=== PATIENT | female | born 1950 | race Caucasian/White ===

== ENCOUNTER 2020-08-20 08:07 | Outpatient (CLI) | payer MEDICARE, BC, SELFPAY ==
--- NOTE | ~2020-08-20 | MM_ITS ---
EXAMINATION: MM screening [facility] BI w zack HISTORY: Screening mammogram, history of left breast cancer TECHNIQUE: Craniocaudal and mediolateral oblique 3-D tomosynthesis images were obtained and synthetic 2-D images were generated. CAD analysis was submitted and interpreted. COMPARISON: 07/30/2019, 07/10/2018, 05/31/2017, 05/30/2016 BREAST PARENCHYMAL COMPOSITION: There are scattered areas of fibroglandular density. FINDINGS: Stable lumpectomy changes are present in the left breast. There is no evidence of suspiciou s mass, calcification, or architectural distortion to suggest malignancy in either breast. There has been no suspicious interval change. IMPRESSION: 1. No mammographic evidence of malignancy. 2. Recommend routine screening mammography in one year. BI-RADS Category 2: Benign finding(s). Reviewed, dictated and finalized at location A. GER BUILDING
== END 2020-08-20 08:08 | disposition home or self-care (01) ==
LOC: ANHIMG 08:11
PROVIDERS: PCP Family Medicine; Visit Provider Family Medicine
DX: Z12.31 Encounter for screening mammogram for malignant neoplasm of breast (principal)
CPT/HCPCS: 77063; 77067

== ENCOUNTER 2021-02-18 13:19 | Outpatient (CLI) | payer MEDICARE, BC, SELFPAY ==
--- NOTE | ~2021-02-18 | US_ITS ---
US venous doppler [facility] DATE: 02/18/2021 14:20 INDICATION: Left leg pain TECHNIQUE: Real-time and color flow imaging and Doppler analysis of bilateral leg veins COMPARISON: 09/19/2017 venous duplex examination of left leg FINDINGS: There is evidence veins are patent. There is spontaneous and phasic flow and normal augment ation and color flow signal and normal compression of the deep veins of both lower extremities. IMPRESSION: Negative examination Reviewed, dictated and finalized at Location A. Reviewed, dictated and finalized at location A. IMPRESSION: Negative examination
== END 2021-02-18 13:20 | disposition home or self-care (01) ==
LOC: ANHIMG 13:23
PROVIDERS: PCP Family Medicine; Visit Provider Physician Assistant Medical
DX: M79.605 Pain in left leg (principal); Z86.718 Personal history of other venous thrombosis and embolism
CPT/HCPCS: 93970

== ENCOUNTER 2021-09-07 07:59 | Outpatient (CLI) | payer MEDICARE, BC, SELFPAY ==
--- NOTE | ~2021-09-07 | MM_ITS ---
EXAMINATION: MM screening [facility] BI w zack HISTORY: Screening mammogram TECHNIQUE: Craniocaudal and mediolateral oblique 3-D tomosynthesis images were obtained and synthetic 2-D images were generated. CAD analysis was submitted and interpreted. COMPARISON: No prior mammogram is available for comparison at this institution. BREAST PARENCHYMAL COMPOSITION: There are scattered areas of fibroglandular density. FINDINGS: Stable postoperative scarring is again noted on the left; history of left partial mastectom y in 2007 for breast cancer There is no evidence of suspicious mass, calcification, or new architectu ral distortion to suggest malignancy in either breast. There has been no suspicious interval change. IMPRESSION: 1. No mammographic evidence of malignancy. 2. Recommend routine screening mammography in one year. BI-RADS Category 2: Benign finding(s). Reviewed, dictated and finalized at location A. L CONSTRUCTION WORKER
== END 2021-09-07 08:00 | disposition home or self-care (01) ==
LOC: ANHIMG 08:04
PROVIDERS: PCP Family Medicine; Visit Provider Family Medicine
DX: Z12.31 Encounter for screening mammogram for malignant neoplasm of breast (principal)
CPT/HCPCS: 77063; 77067

== ENCOUNTER 2021-11-16 11:35 | Outpatient (CLI) | payer MEDICARE, BC, SELFPAY ==
--- NOTE | ~2021-11-16 | XR_ITS ---
EXAMINATION: XR abdomen/kub 1V DATE: 11/16/2021 11:51 INDICATION: Hematuria. Right lower quadrant abdominal pain. TECHNIQUE: A supine view of the abdomen on 2 radiographs was obtained. COMPARISON: CT abdomen and pelvis 11/06/2014, lumbar spine radiographs 06/04/16 FINDINGS: There are no dilated loops of bowel. The kidneys are obscured by bowel. There are phlebolit hs in the pelvis and ovarian veins. IMPRESSION: 1. No visible urolithiasis. Reviewed, dictated and finalized at location A. OLEUM SUPPLY SPECIALIST IMPRESSION: 1. No visible urolithiasis.
[2021-11-16 12:32] LABS: Basophils Percent Auto 0.3 % (0.2-1.2); Eosinophils Absolute Auto 0.1 K/mm3 (0-0.3); Eosinophils Percent Auto 0.4 % (0-4.4); Hemoglobin 14.3 g/dL (12.0-15.0); Immature Granulocyte Absolute 0.04 K/mm3 (0.00-0.031); Immature Granulocyte Percent A 0.3 % (0-0.5); Lymphocytes Absolute Auto 0.94 K/mm3 (0.9-3.2); Lymphocytes Percent Auto 7.2 % (18.3-44.2); Mean Corpuscular HGB Conc 33.3 g/dl (32-36); Mean Corpuscular Hemoglobin 33.3 pg (26-34); Mean Corpuscular Volume 100.2 fl (80-100); Mean Platelet Volume 9.6 fl (7.4-10.4); Monocytes Absolute Auto 1.1 K/mm3 (0.1-0.6); Monocytes Percent Auto 8.8 % (2.6-8.5); Neutrophils Absolute Auto 10.8 K/mm3 (1.3-6.7); Platelet Count Result 240 k/mm3 (150-375); Red Blood Count 4.29 M/mm3 (4.2-5.4); Red Cell Distribution Width 12.5 % (11.5-14.5)
[2021-11-16 12:48] LABS: Alanine Aminotransferase 14 U/L (4-35); Albumin Level 4.4 g/dL (3.5-5.1); Alkaline Phosphatase 70 U/L (38-126); Anion Gap 5 mmol/L (8-16); Aspartate Amino Transferase 25 U/L (14-36); Bilirubin,Total 0.7 mg/dL (0.2-1.3); Blood Urea Nitrogen 17 mg/dL (7-17); Calcium 9.6 mg/dL (8.4-10.2); Carbon Dioxide 25 mmol/L (22-30); Chloride 105 mmol/L (98-107); Estimated Glomerular Filt Rate > 60; Glucose 108 mg/dL (65-110); Potassium 4.2 mmol/L (3.4-5.0); Sodium 135 mmol/L (137-145)
== END 2021-11-16 11:36 | disposition home or self-care (01) ==
LOC: ANHIMG 11:38
PROVIDERS: PCP Family Medicine; Visit Provider Nurse Practitioner Family
DX: R31.9 Hematuria, unspecified (principal); R39.9 Unspecified symptoms and signs involving the genitourinary system
CPT/HCPCS: 36415; 74018; 80053; 85025

== ENCOUNTER 2022-08-30 14:18 | Emergency (ER) | payer MEDICARE, BC, SELFPAY ==
[2022-08-30 14:34] VITALS: BP 121/77; PULSE 77; RESP 18; TEMP 36.7; O2SAT 100
--- NOTE | 2022-08-30 14:55 | ED.GENADULT ---
HPI - General Adult General Chief complaint: Skin/Abscess/Foreign Body Stated complaint: skin above left ankle is hot to touch Time Seen by Provider: 08/30/22 14:55 Source: patient Mode of arrival: ambulatory Limitations: no limitations History of Present Illness HPI narrative: 72-year-old female presents with complaint of hot feeling and itching to left ankle for 2 days. Reports she noticed after walking yesterday the area was warmer than when compared to right leg. Reports history of DVT several years ago but had completely different symptoms somewhat she was having today. Reports due to itching she has been applying lotion. Today she has no redness no rash no warmth and no itching but is concerned she may have a DVT. She has no pain Or swelling to her left lower extremity. all systems reviewed and negative except as noted above. Related Data Home Medications Medication Instructions Recorded Confirmed biotin 1 mg capsule 1 mg PO DAILY 05/04/22 08/30/22 lovastatin 10 mg tablet 10 mg PO DAILY 05/04/22 08/30/22 Allergies Allergy/AdvReac Type Severity Reaction Status Date / Time No Known Allergies Allergy Verified 08/30/22 14:27 Review of Systems Review of Systems: CONSTITUTIONAL: Denies fever, chills, or sweats. EYES: Denies visual changes, redness, or discharge. ENT: Denies rhinorrhea, congestion, sore throat, or otalgia. CARDIOVASCULAR: Denies chest pain, palpitations, or edema. RESPIRATORY: Denies cough or dyspnea. GASTROINTESTINAL: Denies abdominal pain, nausea, vomiting, or diarrhea. GENITOURINARY: Denies dysuria or hematuria. SKIN: Reports itching, hot feeling to left ankle. MUSCULOSKELETAL: Denies back pain, joint pain, or myalgia. NEUROLOGIC: Denies headache, numbness, or weakness. PSYCHIATRIC: Denies anxiety or depression. All other systems reviewed are negative, except as documented in HPI. [facility] Past Medical History Medical History Adult BMI 25.0-25.9 kg/sq m BMI 26.0-26.9,adult Chronic deep vein thrombosis (DVT) of left lower extremity MORALES (dyspnea on exertion) Hypersomnia Mixed hyperlipidemia Obstructive sleep apnea Palpitations with regular cardiac rhythm Screening for thyroid disorder Sleep apnea in adult Varicose vein of leg Vertigo Surgical History Surgical History H/O left cataract extraction History of tubal ligation Family History Family History Mother Hypertension Carcinoma of colon Family history of diabetes mellitus in first degree relative Family history of malignant neoplasm of breast in first degree relative Patient's mother is , Onset Age: 82 Grandparent Family history of coronary artery disease Acute myocardial infarction Malignant neoplasm of prostate Sibling Family history of diabetes mellitus in first degree relative Family history of colonic diverticulitis Family history of heart disease in male family member before age 55 Diabetes mellitus Family history of congestive heart failure Patient's brother is in good health Family history of sleep apnea Father Family history of emphysema Family history of renal failure, Onset Age: 79 Family history of congenital heart disease Family history of malignant neoplasm of urinary bladder Family history of congestive heart failure Sibling , heart failure No problems noted. 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
== END 2022-08-30 15:04 | disposition home or self-care (01) ==
PROVIDERS: Emergency Provider Nurse Practitioner Family; PCP Family Medicine
DX: Z03.89 Encounter for observation for other suspected diseases and conditions ruled out (principal); E78.2 Mixed hyperlipidemia; G47.33 Obstructive sleep apnea (adult) (pediatric); Z86.718 Personal history of other venous thrombosis and embolism; Z98.42 Cataract extraction status, left eye
CPT/HCPCS: 99211; G0463

== ENCOUNTER 2022-11-06 07:48 | Outpatient (CLI) | payer MEDICARE, BC, SELFPAY ==
--- NOTE | ~2022-11-06 | MM_ITS ---
EXAMINATION: MM screening [facility] BI w zack HISTORY: Screening TECHNIQUE: Craniocaudal and mediolateral oblique 3-D tomosynthesis images were obtained and synthetic 2-D images were generated. CAD analysis was submitted and interpreted. COMPARISON: Comparison to multiple prior studies sequentially, with oldest reviewed study dated 05/30. BREAST PARENCHYMAL COMPOSITION: There are scattered areas of fibroglandular density. FINDINGS: Stable architectural distortion and calcifications in the upper outer quadrant of the left breast consistent with previous lumpectomy site. There is no evidence of suspicious mass, calcificati on, or architectural distortion to suggest malignancy in either breast. There has been no suspicious interval change. IMPRESSION: 1. No mammographic evidence of malignancy. 2. Recommend routine screening mammography in one year. BI-RADS Category 2: Benign finding(s). Reviewed, dictated and finalized at location A. HYSICAL E LOGGER
== END 2022-11-06 07:49 | disposition home or self-care (01) ==
LOC: ANHIMG 07:50
PROVIDERS: PCP Family Medicine; Visit Provider Family Medicine
DX: Z12.31 Encounter for screening mammogram for malignant neoplasm of breast (principal)
CPT/HCPCS: 77063; 77067

== ENCOUNTER 2022-12-29 10:13 | Emergency (ER) | payer MEDICARE, BC, SELFPAY ==
--- NOTE | ~2022-12-29 | CT_ITS ---
Non-contrast CT scan of the Abdomen and Pelvis Clinical indication: Right flank pain Technique: 2.5 mm axial scans were obtained through the abdomen and pelvis without intravenous or or al contrast. Dose reduction technique was used on this scan by utilizing automated exposure control a nd iterative reconstruction technique. The dose-length product (DLP) was 192.39 mGy-cm. COMPARISON: 11/06/2014 Findings: Images through the lung bases reveal no abnormalities. There is no evidence of renal or ureteral calculi. The kidneys and the ureters are nondilated. Stable left hepatic lobe cyst noted. The spleen, pancreas, gallbladder, and adrenals appear normal. There is no aortic aneurysm. There is no evidence of bowel obstruction. Images through the pelvis were performed. There is no evidence of ascites or lymphadenopathy. Urinary bladder unremarkable. No adnexal mass evident. No ascites. Mild chronic compression deformity of T11 noted. Impression: No acute abnormality seen. Mild chronic compression deformity of T11. Reviewed, dictated and finalized at [facility]. Impression: No acute abnormality seen. Mild chronic compression deformity of T11.
[2022-12-29 11:02] VITALS: BP 144/79; PULSE 77; RESP 14; TEMP 36.7; O2SAT 99
[2022-12-29 12:05] LABS: Basophils Absolute Auto 0.1 K/mm3 (0.0-0.1); Basophils Percent Auto 0.8 % (0.2-1.2); Eosinophils Absolute Auto 0.2 K/mm3 (0-0.3); Eosinophils Percent Auto 2.5 % (0-4.4); Hematocrit 39.9 % (37.0-47.0); Hemoglobin 13.3 g/dL (12.0-15.0); Immature Granulocyte Absolute 0.01 K/mm3 (0.00-0.031); Immature Granulocyte Percent A 0.2 % (0-0.5); Lymphocytes Absolute Auto 1.33 K/mm3 (0.9-3.2); Lymphocytes Percent Auto 22.4 % (18.3-44.2); Mean Corpuscular HGB Conc 33.3 g/dl (32-36); Mean Corpuscular Hemoglobin 32.7 pg (26-34); Mean Platelet Volume 9.8 fl (7.4-10.4); Monocytes Absolute Auto 0.6 K/mm3 (0.1-0.6); Monocytes Percent Auto 10.1 % (2.6-8.5); Neutrophils Absolute Auto 3.8 K/mm3 (1.3-6.7); Platelet Count Result 247 k/mm3 (150-375); Red Blood Count 4.07 M/mm3 (4.2-5.4); Red Cell Distribution Width 12.1 % (11.5-14.5); White Blood Count 5.9 K/mm3 (4.5-10.0)
[2022-12-29 12:09] LABS: Appearance Urine Clear (Clear); Bacteria Urine None Seen /hpf; Bilirubin Urine Negative (Negative); Blood Urine Negative (Negative); Color Urine Yellow (Yellow); Glucose Urine UA Negative (Negative); Ketones Urine Trace mg/dL (Negative); Leukocyte Esterase Ur Trace LEU/UL (Negative); Nitrate Urine Negative (Negative); Non Pathogenic Casts 0-2; Protein Urine Negative (Negative); RBC Urine 0-2 /hpf (0-2); Specific Grav Ur 1.013 (1.001-1.035); Squamous Epithelial Cell Urine None seen /hpf (Few); WBC Urine 0-5 /hpf
[2022-12-29 12:23] LABS: Add Urine Microscopic? YES
[2022-12-29 12:32] LABS: Alanine Aminotransferase 16 U/L (6-35); Albumin Level 4.2 g/dL (3.5-5.1); Alkaline Phosphatase 62 U/L (38-126); Anion Gap 7 mmol/L (8-16); Aspartate Amino Transferase 23 U/L (14-36); Bilirubin,Total 0.5 mg/dL (0.2-1.3); Blood Urea Nitrogen 13 mg/dL (7-17); Carbon Dioxide 27 mmol/L (22-30); Chloride 105 mmol/L (98-107); Estimated CRCL calculation 46 ml/min; Estimated Glomerular Filt Rate > 60; Glucose 89 mg/dL (65-110); Potassium 4.2 mmol/L (3.4-5.0); Sodium 139 mmol/L (137-145)
[2022-12-29 14:04] VITALS: BP 153/85; PULSE 66; RESP 16; O2SAT 100
--- NOTE | 2022-12-29 14:12 | ED.BACK ---
HPI - Back Pain/Injury General Chief Complaint: Back Pain/Injury Stated Complaint: right back pain x several days Time Seen by Provider: 12/29/22 13:46 History of Present Illness HPI Narrative: 72-year-old female here for evaluation of right flank pain over the past day and a half. Patient states the pain came on while she was on a walk, described as a sharp and stabbing sensation in her right thoracic area that radiates into her right flank. She states the pain has been intermittent in nature ever since, worse with certain positions and movement of her thorax. No trauma to her back. She has had no dysuria, urgency, frequency or blood in her urine. No fevers or chills, nausea or vomiting. Patient has not taken any medicine for her pain yet. She declines any pain medicine here. Related Data Home Medications Medication Instructions Recorded Confirmed lovastatin 10 mg tablet 10 mg PO DAILY 05/04/22 08/30/22 vitamins A,C,W-albm-wpmkvn 4,296 1 cap PO DAILY 08/30/22 08/30/22 mcg-226 mg-90 mg capsule (PreserVision AREDS) Allergies Allergy/AdvReac Type Severity Reaction Status Date / Time No Known Allergies Allergy Verified 12/29/22 10:14 Review of Systems Review of Systems: Gen.: Denies fevers or chills Eyes: Denies eye pain or visual change ENT: Denies congestion Respiratory: Denies shortness of breath or cough CV: Denies chest pain or palpitations GI: Denies abdominal pain nausea, emesis or diarrhea denies burning, urgency, frequency or hematuria Musculoskeletal: Reports right flank pain Neuro: Denies numbness, tingling, weakness or focal weakness Skin: Denies rash Except as documented, all other systems reviewed and negative [facility] Past Medical History Medical History Adult BMI 25.0-25.9 kg/sq m BMI 26.0-26.9,adult Chronic deep vein thrombosis (DVT) of left lower extremity MORALES (dyspnea on exertion) Hypersomnia Mixed hyperlipidemia Obstructive sleep apnea Palpitations with regular cardiac rhythm Screening for thyroid disorder Sleep apnea in adult Varicose vein of leg Vertigo Surgical History Surgical History H/O left cataract extraction History of tubal ligation Family History Family History Mother Hypertension Carcinoma of colon Family history of diabetes mellitus in first degree relative Family history of malignant neoplasm of breast in first degree relative Patient's mother is , Onset Age: 82 Grandparent Family history of coronary artery disease Acute myocardial infarction Malignant neoplasm of prostate Sibling Family history of diabetes mellitus in first degree relative Family history of colonic diverticulitis Family history of heart disease in male family member before age 55 Diabetes mellitus Family history of congestive heart failure Patient's brother is in good health Family history of sleep apnea Father Family history of emphysema Family history of renal failure, Onset Age: 79 Family history of congenital heart disease Family history of malignant neoplasm of urinary bladder Family history of congestive heart failure Sibling , heart failure No problems noted. 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 Head: N
[2022-12-29 15:10] VITALS: BP 136/92; PULSE 76; RESP 16; O2SAT 100
== END 2022-12-29 15:25 | disposition home or self-care (01) ==
PROVIDERS: Emergency Medicine; Emergency Provider Physician Assistant; PCP Family Medicine
DX: T14.8XXA Other injury of unspecified body region, initial encounter (principal); X58.XXXA Exposure to other specified factors, initial encounter; E78.2 Mixed hyperlipidemia
CPT/HCPCS: 36415; 74176; 80053; 81001; 85025; 99284

== ENCOUNTER 2023-04-11 13:22 | Outpatient (CLI) | payer MEDICARE, BC, SELFPAY ==
--- NOTE | ~2023-04-11 | XR_ITS ---
Left Knee Technique: AP, lateral, and sunrise views were obtained. Clinical History: Pain Findings: No fracture or dislocation is seen. There is advanced medial compartment degenerative coronado e, with joint line osteophyte formation medial compartment narrowing. There is mild to moderate osteo phyte formation of the patella. There is mild osteophyte formation at the lateral joint line.. Soft t issues are unremarkable. No joint effusion is seen. Impression: Severe degenerative change of the medial compartment. Moderate degenerative change of the patellofemoral compartment. Mild degenerative change of the lateral compartment. Reviewed, dictated and finalized at location . Impression: Severe degenerative change of the medial compartment. Moderate degenerative change of the patellofemoral compartment. Mild degenerative change of the lateral compartment.
== END 2023-04-11 13:23 | disposition home or self-care (01) ==
PROVIDERS: PCP Family Medicine; Visit Provider Nurse Practitioner Family
DX: M17.12 Unilateral primary osteoarthritis, left knee (principal)
CPT/HCPCS: 73564

== ENCOUNTER 2023-05-22 10:37 | Outpatient (CLI) | payer MEDICARE, BC, SELFPAY ==
--- NOTE | ~2023-05-22 | MR_ITS ---
EXAMINATION: MR knee LT wo con DATE: 05/22/2023 11:18 INDICATION: Left knee pain post injury TECHNIQUE: Magnetic resonance imaging (MRI) of the left knee was performed without intravenous contra st. Sequences included coronal PD-weighted FSE, coronal PD-weighted FS FSE, sagittal T2-weighted FSE , sagittal PD-weighted FS FSE and axial PD weighted fat saturated FSE. COMPARISON: None. FINDINGS: Medial compartment: Complex medial meniscal tear extending from anterior body through the posterior horn. The meniscal rishi dy which appears small and somewhat macerated appearance is medially extruded and positioned between moderate to large marginal osteophytes which are present along the medial rim of the medial tibial pl ateau and anterior weightbearing medial femoral condyle. There is extensive full/near full-thickness chondral ulceration along the anterior to central weightbearing medial femoral condyle and along the anterior two thirds of the medial tibial plateau where there is associated early cortical remodeling. There are large marginal osteophytes along the posterior aspect of the weightbearing medial femoral condyle which extend across the posterior most 1 cm of the articular surface. Lateral compartment: There is a tear of the meniscotibial ligament along the posterior inferior margin of the posterior ho rn of the lateral meniscus. The meniscus proper appears to remain normal. Shallow chondral ulceration at the central aspect of the lateral tibial and partial-thickness chondral fissuring more posteriorl y along the lateral tibial plateau. There are small central subchondral osteophytes underlying the ca rtilage at the posterior most weightbearing lateral femoral condyle. The more anterior condylar carti lewis remains normal. Additional small marginal osteophytes are present. Patellofemoral compartment: Deep chondral fissuring at the trochlear groove. There is some deep chondral delamination at or near the bone chondral interface extending 1.5 cm laterally from the trochlear groove along the cephalad a spect of the lateral trochlea. Additional deep chondral fissuring at the inferior aspect of the media l trochlea. Scattered patellar chondral surface regularity with deeper fissuring at the inferolateral aspect of the lateral patellar facet. Moderate size marginal osteophytes along the patella and troch linda. Ligaments and tendons: Anterior and posterior cruciate ligaments are normal. The medial collateral ligament and fibular baldo ateral ligament complex are normal. The extensor mechanism is normal. The visualized medial and later al hamstring tendons as well as the iliotibial band are normal. Fluid: Small left knee joint effusion with mild to moderate synovitis at the suprapatellar pouch and over th e recess at the periphery of the medial compartment. No loose osteochondral bodies identified. Osseous/other: Bone alignment is normal. No fracture or pathologic marrow replacing process. IMPRESSION: 1. Complex medial meniscal tear with advanced osteoarthritis in the medial compartment. 2. Normal lateral meniscus but with tear of the meniscotibial ligament, inferiorly at the periphery o f the posterior horn. 3. Mild osteoarthritis with moderate and high-grade chondromalacia in the lateral patellofemoral comp artments. Reviewed, dictated and finalized at location A. IMPRESSION: 1. Complex medial meniscal tear with advanced osteoarthritis in the medial comp artment. 2. Normal lateral meniscus but with tear of the meniscotibial ligament, inferio rly at the periphery of the posterior horn. 3. Mild osteoarthritis with moderate and high-grade chondromalacia in the later al patellofemoral compartments.
== END 2023-05-22 10:38 | disposition home or self-care (01) ==
PROVIDERS: PCP Family Medicine; Visit Provider Physician Assistant Medical
DX: S83.232A Complex tear of medial meniscus, current injury, left knee, initial encounter (principal); X58.XXXA Exposure to other specified factors, initial encounter; M17.12 Unilateral primary osteoarthritis, left knee
CPT/HCPCS: 73721

== ENCOUNTER 2023-07-25 10:25 | Outpatient (CLI) | payer MEDICARE, BC, SELFPAY ==
--- NOTE | ~2023-07-25 | NM_ITS ---
EXAMINATION: NM rayna stress w perfusion DATE: 07/25/2023 13:19 INDICATION: Encounter for preprocedural cardiovascular exam TECHNIQUE: Rest images were obtained following intravenous administration of 9.7 mCi Tc99m tetrofosmi n (Myoview). The patient was infused intravenously with Lexiscan (Regadenoson). Then, 30.4 mCi Tc99m tetrofosmin (Myoview) was administered intravenously, and stress images were obtained. Data was recon structed into short axis and horizontal and vertical long axis SPECT images. Gated SPECT images were also obtained. COMPARISON: None. FINDINGS: There is no definite reversible or fixed perfusion abnormality to suggest ischemia or infar ction. There is normal left ventricular chamber size, wall motion and ejection fraction. Left ventr icular ejection fraction measures >70%. IMPRESSION: 1. Normal myocardial perfusion at rest and during stress. 2. Left ventricular ejection fraction measuring >70%. Reviewed, dictated and finalized at location A.
--- NOTE | 2023-07-25 10:36 | EST_ITS ---
Patient Info Name: Tita Foster Age: 72 years : 1950 Gender: Female Ht: 64 in Wt: 156 lbs BSA: 1.80 m2 HR: 65 bpm BP: 145 / 89 mmHg Heart Rhythm: Sinus Rhythm Exam Date: 07/25/2023 11:56 AM Exam Location: [facility] Stress Patient Status: Outpatient Admit Date: 07/25/2023 Staff Ordering Physician: Jaya Graham DO Attending Provider: Jaya Graham DO Exercise Technologist: Esme Verma CT Exercise Physician: Jaya Graham DO Exam Type: CA stress rayna w NM Study Info Indications Z01.810 - Encounter for preprocedural cardiovascular examination A regadenoson stress test was performed. Summary 1. 1. Negative lexiscan stress test for ischemic ST changes by ECG criteria. 2. 2. Baseline hypertension. 3. 3. Nuclear scan to follow and will be reported separately. Please correlate with it. 4. 4. Patient informed of the above results. Protocol: Lexiscan Stress ECG Details Stage: REST Duration (min): 0 min : 54 sec HR (bpm): 70 SBP (mmHg): 145 DBP (mmHg): 89 Stage: REST Duration (min): 11 min : 49 sec HR (bpm): 69 SBP (mmHg): 145 DBP (mmHg): 89 Stage: STAGE 1 Duration (min): 1 min : 0 sec HR (bpm): 93 SBP (mmHg): 145 DBP (mmHg): 89 Stage: RECOVERY Duration (min): 1 min : 0 sec HR (bpm): 102 SBP (mmHg): 155 DBP (mmHg): 85 Stage: RECOVERY Duration (min): 2 min : 0 sec HR (bpm): 98 SBP (mmHg): 155 DBP (mmHg): 85 Stage: RECOVERY Duration (min): 3 min : 0 sec HR (bpm): 95 SBP (mmHg): 139 DBP (mmHg): 78 Stage: RECOVERY Duration (min): 3 min : 0 sec HR (bpm): 94 SBP (mmHg): 139 DBP (mmHg): 78 Rest HR: 69 bpm Peak HR: 104 bpm Rest Sys BP: 145 mmHg Peak Sys BP: 155 mmHg Max Pred HR: 146 bpm % Max Pred HR: 71 % Target HR: 124 bpm Max RPP: 16,120 bpm*mmHg Termination Reason: Completed protocol Cardiac Symptoms: Shortness of breath Total Time: 1 min : 0 sec Rest Carcamo BP: 89 mmHg Peak Carcamo BP: 85 mmHg Total Dose: 0.4 mg Resting ECG Sinus rhythm. Stress ECG No ST changes. Arrhythmias None. Report Signatures
== END 2023-07-25 10:26 | disposition home or self-care (01) ==
PROVIDERS: PCP Family Medicine; Visit Provider Internal Medicine Cardiovascular Disease
DX: Z01.810 Encounter for preprocedural cardiovascular examination (principal)
CPT/HCPCS: 78452; 93017; A9502; J2785

== ENCOUNTER 2023-08-07 13:32 | Outpatient (CLI) | payer MEDICARE, BC, SELFPAY ==
--- NOTE | ~2023-08-07 | CT_ITS ---
EXAMINATION: CT LE LT wo con DATE: 08/07/2023 14:04 INDICATION: Left knee osteoarthritis. Preoperative planning. TECHNIQUE: Computed tomography (CT) of the left lower limb was performed without intravenous contrast . Automated exposure control and iterative reconstruction technique were employed. The dose-length pr oduct was 1556.02 mGy-cm. COMPARISON: Left knee radiographs 04/11/2023 FINDINGS: The hip demonstrates normal bone alignment. No fracture. There is moderate left hip osteoar thritis. There is varus angulation at the knee. There is severe osteoarthritis of medial compartment, moderate osteoarthritis of patellofemoral compartment, and mild osteoarthritis of lateral compartmen t. There is a small knee joint effusion. IMPRESSION: 1. Severe left knee osteoarthritis. 2. Small left knee joint effusion. 3. Moderate left hip osteoarthritis. Reviewed, dictated and finalized at location E.
[2023-08-07 14:32] LABS: Hematocrit 42.6 % (37.0-47.0)
[2023-08-07 14:41] LABS: Urine Cotinine NEGATIVE
[2023-08-07 14:42] LABS: Albumin Level 4.1 g/dL (3.5-5.1); Estimated Glomerular Filt Rate > 60; Glucose 84 mg/dL (65-110)
== END 2023-08-07 13:33 | disposition home or self-care (01) ==
LOC: ANHIMG 13:43
PROVIDERS: PCP Family Medicine; Visit Provider Orthopaedic Surgery
DX: M17.12 Unilateral primary osteoarthritis, left knee (principal); E78.2 Mixed hyperlipidemia; Z01.810 Encounter for preprocedural cardiovascular examination; Z87.19 Personal history of other diseases of the digestive system; M25.462 Effusion, left knee; M16.12 Unilateral primary osteoarthritis, left hip
CPT/HCPCS: 73700; 80307; 82040; 82565; 82947; 85014; 85018

== ENCOUNTER 2023-10-17 11:40 | Outpatient (CLI) | payer MEDICARE, BC, SELFPAY ==
--- NOTE | 2023-10-17 12:46 | ECG_ITS ---
Measurements Intervals Russell Rate: 65 P: 76 SD: 160 QRS: 76 QRSD: 105 T: 38 QT: 385 QTc: 400 Interpretive Statements SINUS RHYTHM BASELINE ARTIFACT- I, III, AVR, AVL, V5 NORMAL ECG NO PREVIOUS ECG AVAILABLE FOR COMPARISON Electronically Signed On 10-17-2023 13:16:23 REIMBURSEMENT REPRESENTATIVE by Jaya Graham D.O.
[2023-10-17 13:17] LABS: Basophils Percent Auto 0.5 % (0.2-1.2); Eosinophils Absolute Auto 0.2 K/mm3 (0-0.3); Eosinophils Percent Auto 2.9 % (0-4.4); Hematocrit 44.2 % (37.0-47.0); Hemoglobin 14.2 g/dL (12.0-15.0); Immature Granulocyte Absolute 0.01 K/mm3 (0.00-0.031); Immature Granulocyte Percent A 0.2 % (0-0.5); Lymphocytes Absolute Auto 1.64 K/mm3 (0.9-3.2); Lymphocytes Percent Auto 24.6 % (18.3-44.2); Mean Corpuscular HGB Conc 32.1 g/dl (32-36); Mean Corpuscular Hemoglobin 32.4 pg (26-34); Mean Corpuscular Volume 100.9 fl (80-100); Mean Platelet Volume 9.9 fl (7.4-10.4); Monocytes Absolute Auto 0.7 K/mm3 (0.1-0.6); Monocytes Percent Auto 10.7 % (2.6-8.5); Neutrophils Absolute Auto 4.1 K/mm3 (1.3-6.7); Neutrophils Percent Auto 61.1 % (45.5-73.1); Platelet Count Result 248 k/mm3 (150-375); Red Blood Count 4.38 M/mm3 (4.2-5.4); Red Cell Distribution Width 12.3 % (11.5-14.5); White Blood Count 6.7 K/mm3 (4.5-10.0)
[2023-10-17 13:27] LABS: Albumin Level 4.2 g/dL (3.5-5.1); Estimated Glomerular Filt Rate > 60; Glucose 88 mg/dL (65-110)
[2023-10-17 13:37] LABS: Hemoglobin A1C 5.2 % (<5.7)
[2023-10-17 13:40] LABS: Urine Cotinine NEGATIVE
== END 2023-10-17 11:41 | disposition home or self-care (01) ==
LOC: ANHSURGERY 11:46
PROVIDERS: PCP Family Medicine; Visit Provider Orthopaedic Surgery
DX: M17.12 Unilateral primary osteoarthritis, left knee (principal); Z01.818 Encounter for other preprocedural examination
CPT/HCPCS: 80307; 82040; 82565; 82947; 83036; 85025; 87081; 93005

== ENCOUNTER 2023-11-08 01:40 | Day surgery (SDC) | payer MEDICARE, BC, SELFPAY ==
[2023-10-17 11:54] VITALS: BMI 27.3
--- NOTE | 2023-10-17 12:19 | PC.NURSE ---
Report to the Outpatient Waiting Room, entrance under the green pavilion located off [facility], at time __0600 on date __11/08/23 . Planned Procedure Time: _0730 . Time changes happen often and if your time is changed the preop area will call you the afternoon before. - You and your visitor will be asked to self-screen and do not enter if you have any COVID symptoms. - A mask is optional within the hospital at this time. Patients may have clear liquids (water, carbonated beverages, clear teas, apple juice) until 3 hours prior to surgery( 4:30 AM ) with a maximum of 20 ounces. - No food from midnight until time of surgery - Infants may have breast milk until 4 hours before surgery, formula 6 hours prior to surgery. - Children will be allowed to drink immediately following surgery. If applicable, please bring a bottle or sippy cup to assist with drinking. Juice, water, soda, and popsicles are readily available. For infants on formula, please bring formula the day of surgery. Pacifiers are allowed. Take the following medications with a SIP of water the morning of surgery: NONE DO NOT STOP ANY OF YOUR OTHER PRESCRIPTION MEDICATIONS PRIOR TO SURGERY ?EXCEPT THE FOLLOWING Medications to discontinue per physician HOLD PRESERVISION 3 DAYS PRE OP.LAST DOSE 11/04/23 Please no make-up, nail yakut, hairspray, perfume, deodorant, or body powder the day of surgery. No jewelry (including any body piercings) or valuables the day of surgery, leave them at home. Please take a shower or bath the night before, or the morning of, surgery with an antibacterial soap. Wear comfortable, loose fitting clothing. Children are encouraged to wear pajamas. - Jewelry must be removed prior to entering the operating room. Rings and piercings that are not removed may be cut off. - The hospital will not accept responsibility for valuables. - Please leave all valuables, including medications, at home the day of surgery. If you are going home after surgery, a licensed auto haulaway driver must drive you home. - NO public transportation without another adult if you receive anesthesia. - We recommend that an adult stay with you for 24 hours following discharge. - We also recommend that you do not drive, make important decision, drink alcoholic beverages, or take any drugs that were not prescribed by your health care provider for at least 24 hours after your discharge time. Follow any additional instructions given to you from your surgeon. If you or anyone in your household have experienced Covid symptoms in the past week, please notify your surgeon or the nurse liaison at the phone number below for possible testing. VERBAL AND WRITTEN instructions given to __PATIENT AND SPOUSE FRANK and asked if any additional questions and then verbalized understanding. Patient advised to call surgeon office or pre surgery nurse liaison [phone] if any additional questions.
[2023-10-17 12:41] VITALS: BP 139/91; PULSE 72; RESP 18; TEMP 36.7; O2SAT 99
[2023-11-08] VITALS (20 sets, daily range): BP systolic 100–138; BP diastolic 55–87; PULSE 60–102; RESP 11–16; TEMP 36.2–36.7; O2SAT 95–100
--- NOTE | ~2023-11-08 | XR_ITS ---
EXAMINATION: [id number] DATE: 11/08/2023 09:59 INDICATION: Total left knee arthroplasty. Postop. TECHNIQUE: 2 views of left knee were obtained. COMPARISON: Left knee radiographs 04/11/2023 FINDINGS: There is a total left knee arthroplasty with patellar resurfacing. Tibia demonstrate 8 degr ees posterior angulation with respect to tibial component. No fracture. There is gas in the knee join t and soft tissues, consistent with recent surgery. IMPRESSION: 1. New total left knee arthroplasty. Reviewed, dictated and finalized at location A. ORATE DEVELOPMENT INTERN
[2023-11-08] MEDS: ACETAMINOPHEN 500 MG TABLET 1000 MG PO ×2 (06:19→17:13)
[2023-11-08] MEDS: LACTATED RINGERS 1,000 ML 30 ML IV CONT (06:40)
--- NOTE | 2023-11-08 06:51 | WPDANESEPPF ---
Anes - Initial Pre Proc Eval Procedure: Operation Date: 11/08/23 07:30 Proposed Procedures p Left Custom Total Knee Arthroplasty - Evans Manzo MD Date/Time: 11/08/23 06:51 Surgeon: Evans Manzo MD Pre Op Diagnosis: Prim O A Lt Knee Patient Data Age: 73 Gender: F Height: 1.63 m Weight: 72 kg Last Vital Signs Temp 36.5 C 11/08/23 06:46 Pulse 79 11/08/23 06:46 Resp 16 11/08/23 06:46 BP 109/80 11/08/23 06:46 Pulse Ox 100 11/08/23 06:46 O2 Del Method Room Air 11/08/23 06:46 Allergies Allergy/AdvReac Type Severity Reaction Status Date / Time No Known Allergies Allergy Verified 11/08/23 06:10 Home Medications Medication Instructions Recorded Confirmed Type vitamins A,C,C-oxlb-plxwiv 4,296 2 cap PO DAILY 08/30/22 11/08/23 History mcg-226 mg-90 mg capsule (PreserVision AREDS) acetaminophen 650 mg 650 mg PO Q12H PRN Pain 10/17/23 11/08/23 History tablet,extended release (Tylenol Arthritis Pain) Patient hx anesthesia problems: none Family hx anesthesia problems: none Results Review: All pre-operative results and documents have been reviewed as part of the pre-operative evaluation. [facility] Past Medical History Medical History Acute effusion of both middle ears Adult BMI 25.0-25.9 kg/sq m Ankle pain, right BMI 26.0-26.9,adult Cerumen impaction Chronic deep vein thrombosis (DVT) of left lower extremity MORALES (dyspnea on exertion) Hypersomnia Mixed hyperlipidemia Obstructive sleep apnea Palpitations with regular cardiac rhythm Screening for thyroid disorder Sleep apnea in adult Varicose vein of leg Vertigo Surgical History Surgical History H/O left cataract extraction History of tubal ligation Family History Family History Mother Hypertension Carcinoma of colon Family history of diabetes mellitus in first degree relative Family history of malignant neoplasm of breast in first degree relative Patient's mother is , Onset Age: 82 Grandparent Family history of coronary artery disease Acute myocardial infarction Malignant neoplasm of prostate Sibling Family history of diabetes mellitus in first degree relative Family history of colonic diverticulitis Family history of heart disease in male family member before age 55 Diabetes mellitus Family history of congestive heart failure Patient's brother is in good health Family history of sleep apnea Father Family history of emphysema Family history of renal failure, Onset Age: 79 Family history of congenital heart disease Family history of malignant neoplasm of urinary bladder Family history of congestive heart failure Sibling , heart failure No problems noted. Other Family history of malignant neoplasm of male breast Social History Social History Smoking status: Never smoker Second hand tobacco smoke exposure: Yes Additional smoking assessment comments: DENIES ANY FORM OF TOBACCO USE Alcohol intake: current Drinks per week: 2 Substance use: never Substance use type: does not use Do You Feel Safe in your Home?: Yes Lack of Transportation: No Lack of Food: Never True Current Housing: I Have Housing Concerned About Future Housing: No Difficulty Paying Gas/Electric Bills: No Difficulty Paying for Meds: No Currently Unemployed: No Education: Bachelor's Degree Difficulty w/ Childcare or Family Care: No Living arrangements: with family 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
[2023-11-08] MEDS: TRANEXAMIC ACID 1,000MG/ISO100 1,000 MG/100 ML BAG 200 MG IVPB (07:02)
--- NOTE | 2023-11-08 07:14 | WPDHPUPDATE1 ---
History and Physical Update Update Date/Time: 11/08/23 07:14 History and Physical has been reviewed, including an updated exam of the patient. There are NO changes in the patient's condition. Risks, benefits, and alternatives have been discussed and questions answered. Patient agrees to proceed with procedure.
[2023-11-08] MEDS: ceFAZolin 2 GM/D5W 50 ML 2 GM/50 ML BAG IVPB ×2 (07:30→15:25)
[2023-11-08] MEDS: GENTAMICIN BONE CEMENT REFOBACIN 1 EACH TOPICAL (08:07)
[2023-11-08] MEDS: fentaNYL CITRATE INJ (*CRX) 100 MCG/2 ML VIAL 25 MCG IV PUSH ×6 (09:45→10:37)
--- NOTE | 2023-11-08 09:51 | WPDANESPNB ---
Anes - Peripheral Nerve Block Date/Time: 11/08/23 09:51 I have discussed with the patient/family/POA the placement of a peripheral nerve block for post-operative pain management, including associated risks, benefits, complications, and side effects. Alternative methods of post-operative analgesia were detailed. Questions were solicited and answers provided to the satisfaction of the patient/family/POA. Time-Out: A pre-procedural Time-Out was completed immediately before starting the procedure and confirmed: Patient Identification, Site, Procedure, Patient Position and the Availability of Requisite Equipment. Clinical Indications: Acute post-operative pain management requested by the operative surgeon. Nerve Block Insertion Note Anes-nerve block: adductor canal left Patient position: supine Skin prep: chlorhexidine Needle: 22 gauge, stimulating, insulated echogenic needle. Needle length: 80 mm Technique: ultrasound Technique comment: [id number] mid1mg Injectate: bupivacaine 0.5% with epi 5 mcg/ml (30ml no epi ) and dexamethasone (mg) (4) Observations: tolerated well Complications: none Procedure start time:: 721 Procedure end time:: 728
--- NOTE | 2023-11-08 09:56 | W.PM.PROC2 ---
Procedure Note - Detailed Date of Procedure 11/08/23 Pre-op Diagnosis Prim O A Lt Knee Post-op Diagnosis Same Procedure Performed Total knee arthroplasty, left. Surgeon Evans Manzo MD Anesthesia General and Regional (Subsartorial block.) Findings Satisfactory bone quality. Mild medial release. Large medial osteophytes excised. Preoperative contracture resolved. Slight PCL release. Description of Procedure Preoperative antibiotics were given. The limb was prepped and draped in the usual sterile fashion with a well-padded tourniquet high on the thigh. The limb was exsanguinated and the tourniquet inflated to 300 mmHg during exposure and cementation. A longitudinal incision was created just medial to the patella. A trivector approach to the knee was performed. Arthrotomy was taken down through the joint capsule. No significant releases were initially taken. The femur was exposed and the F1 jig was applied. The coring tool was used to remove the cartilage for the F2 jig to sit flush with the bone. The jig was pinned and the distal cut carefully taken. Caliper measurements confirmed appropriate bony resections according to the preoperative templated plan. The F4 cutting jig for the femur was applied, at the standard rotation. The AP and anterior chamfer cuts were taken. The F5 jig was applied and the posterior chamfer cuts were taken. The tibia was prepared using the T1 jig, after removing cartilage for the jig contact points. Proper alignment was checked with the alignment denis. The tibia was cut using the T1u guide. Gap balancing was performed. Gap measurements were taken and the knee was trialed. Excellent alignment and soft tissue balancing was confirmed. The posterior cruciate ligament was recessed along the proximal tibia. The patella was cut for resurfacing. Three lug holes were drilled. Meniscal remnants were removed. The trial components were assembled. Excellent range of motion and proper soft tissue balancing were confirmed throughout the full range of motion. Patellar tracking was excellent. The knee was copiously irrigated periodically throughout the procedure. The real implants were cemented into position. Excess cement was carefully removed. The wound was closed in layers with interrupted #1 Vicryl suture, #1 strata fix suture, 3-0 strata fix suture, 4-0 strata fix suture. Steri-Strips placed on the skin with the knee flexed. Sterile bulky dressing applied. The patient was brought to the recovery room in stable condition. There were no complications. Implants Conformis Imprint total knee arthroplasty. Cemented. Cruciate retaining. 10 mm insert. 32 mm oval patella. Estimated Blood Loss 100 Drains No Complications No immediate complications Condition Stable Disposition PACU [facility] Billing Surgery - Charge Forward: Surgery Billing
[2023-11-08] MEDS: oxyCODONE HCL (*CRX) 5 MG TAB IR PO (10:46)
--- NOTE | 2023-11-08 12:11 | SUR.PHASEI ---
Pt. meets criteria to discharge from PACU. Awaiting for bed on floor.
--- NOTE | 2023-11-08 14:15 | ADMGEN ---
This patient, Tita Foster, was admitted to [facility] Room 302-01. Patient/family oriented to hospital policies and general routines including ID bracelet, bed and alarms, visiting hours, pain management, procedures, bathroom and other care routines, personal items, smoking policy, room service/diet, and visiting hours. Information on how to activate the Rapid Response Team has been discussed. Patient/Family are encouraged to report perceived risks to care and to ask questions if they do not understand what they are told or what they should do.
[2023-11-08] MEDS: SODIUM CHLORIDE 0.9% IV 1,000 ML 125 ML IV CONT (15:24)
[2023-11-08] MEDS: SENNA/DOCUSATE SODIUM TABLET 2 TAB PO (17:13)
[2023-11-08] MEDS: MELOXICAM 7.5 MG TABLET PO (17:13)
[2023-11-09] MEDS: ACETAMINOPHEN 500 MG TABLET 1000 MG PO (01:50)
[2023-11-09] MEDS: ceFAZolin 2 GM/D5W 50 ML 2 GM/50 ML BAG IVPB ×2 (01:50→08:43)
[2023-11-09 02:52] VITALS: BP 115/61; PULSE 62; RESP 16; TEMP 36.6; O2SAT 100
[2023-11-09 06:32] VITALS: BP 122/63; PULSE 60; RESP 16; TEMP 36.6; O2SAT 100
[2023-11-09 06:43] LABS: Basophils Percent Auto 0.2 % (0.2-1.2); Eosinophils Percent Auto 0.1 % (0-4.4); Hematocrit 34.3 % (37.0-47.0); Hemoglobin 11.4 g/dL (12.0-15.0); Immature Granulocyte Absolute 0.04 K/mm3 (0.00-0.031); Immature Granulocyte Percent A 0.4 % (0-0.5); Lymphocytes Absolute Auto 1.42 K/mm3 (0.9-3.2); Lymphocytes Percent Auto 12.9 % (18.3-44.2); Mean Corpuscular HGB Conc 33.2 g/dl (32-36); Mean Corpuscular Hemoglobin 32.7 pg (26-34); Mean Corpuscular Volume 98.3 fl (80-100); Mean Platelet Volume 10.3 fl (7.4-10.4); Monocytes Absolute Auto 1.2 K/mm3 (0.1-0.6); Monocytes Percent Auto 10.7 % (2.6-8.5); Neutrophils Absolute Auto 8.3 K/mm3 (1.3-6.7); Neutrophils Percent Auto 75.7 % (45.5-73.1); Platelet Count Result 195 k/mm3 (150-375); Red Blood Count 3.49 M/mm3 (4.2-5.4); Red Cell Distribution Width 12.2 % (11.5-14.5)
[2023-11-09 06:52] LABS: Anion Gap 6 mmol/L (8-16); Blood Urea Nitrogen 15 mg/dL (7-17); Calcium 8.2 mg/dL (8.4-10.2); Carbon Dioxide 24 mmol/L (22-30); Chloride 106 mmol/L (98-107); Estimated CRCL calculation 51 ml/min; Estimated Glomerular Filt Rate > 60; Glucose 89 mg/dL (65-110); Sodium 136 mmol/L (137-145)
--- NOTE | 2023-11-09 07:24 | WPDANESPN ---
Anes - Prog Note Post-Op Date/Time: 11/09/23 07:24 Cardiovascular status: normal Respiratory status: normal Airway patency: baseline Mental status: baseline Post-Op hydration status: normal Vital Signs: Last Vital Signs Temp 98 F 11/09/23 06:32 Pulse 60 11/09/23 06:32 Resp 16 11/09/23 06:32 BP 122/63 11/09/23 06:32 Pulse Ox 100 11/09/23 06:32 O2 Del Method Room Air 11/08/23 15:18 O2 Flow Rate 2 11/08/23 11:00 Pain Score (VAS): 2-3 I/O: Intake & Output 11/08/23 11/08/23 11/09/23 15:59 23:59 07:59 Intake Total 550 200 Balance 550 200 Laboratory Tests 11/09/23 05:44 11/09/23 05:44 11/08/23 11/09/23 06:16 05:44 WBC 11.0 H RBC 3.49 L Hgb 11.4 L Hct 34.3 L MCV 98.3 MCH 32.7 MCHC 33.2 RDW 12.2 Plt Count 195 MPV 10.3 Immature Gran % (Auto) 0.4 Neut % (Auto) 75.7 H Lymph % (Auto) 12.9 L [place] % (Auto) 10.7 H Eos % (Auto) 0.1 Baso % (Auto) 0.2 Lymph # (Auto) 1.42 [place] # (Auto) 1.2 H Eos # (Auto) 0.0 Baso # (Auto) 0.0 Abs Immat Gran (auto) 0.04 H Absolute Neuts (auto) 8.3 H Absolute Nucleated RBC 0.0 Nucleated RBC % 0.0 Sodium 136 L Potassium 4.0 Chloride 106 Carbon Dioxide 24 Anion Gap 6 L BUN 15 Creatinine 0.80 Estim Creat Clear Calc 51 Estimated GFR > 60 Glucose 89 Calcium 8.2 L Antibody Screen Negative Post-procedural complaints: none Patient Feedback: Patient satisfied with anesthetic care.
--- NOTE | 2023-11-09 08:06 | PM.DS ---
DS: Admitting Diagnosis Discharge Date 11/09/23 Admitting Diagnosis OA knee Left DS: Discharge Diagnosis Discharge Diagnosis (1) Status post total left knee replacement: Code(s): Z96.652 - Presence of left artificial knee joint Status: Acute Assessment and Plan: Postop day 1: Left total knee arthroplasty. Patient tolerated procedure well. No complications. Pain manageable with pain medication. No numbness or tingling. We had a lengthy discussion regarding postoperative wound care, limitations, expectations, and exercises. Patient shows good understanding. She has had initial physical therapy and is tolerating it well. History of DVT in operative leg. Will send patient home on Xarelto. DVT prophylaxis: Xarelto. Compression socks for 3 weeks. Short frequent walks. Pain medication: Percocet. Meloxicam. Prednisone. Patient has followup appointment with Dr. Manzo in 3 weeks. DS: Summary Hospital Course Reason for hospitalization: Total knee arthroplasty Hospital Course: Patient tolerated procedure well. Has had initial PT/OT. Status at Discharge Functional status at discharge: uses cane/walker Overall status at discharge: patient is progressing back to baseline Time Spent with Patient Time attestation: Total time spent providing and/or coordinating discharge services: Exam Narrative: 73-year-old overweight female. Resting comfortably in chair. Alert and oriented x3. No acute distress. Wearing compression socks bilaterally. Dressing dry and intact without swelling. Moderate swelling. Mild ecchymosis. No erythema. No hematoma. Range of motion limited due to pain. Calf nontender. Neurologic status intact. No varicosities. Distal pulses palpable. DS: Data Data Completed and Pending Labs on day of discharge: Labs from last 24 hours 11/09/23 05:44 WBC 11.0 H RBC 3.49 L Hgb 11.4 L Hct 34.3 L MCV 98.3 MCH 32.7 MCHC 33.2 RDW 12.2 Plt Count 195 MPV 10.3 Immature Gran % (Auto) 0.4 Neut % (Auto) 75.7 H Lymph % (Auto) 12.9 L [place] % (Auto) 10.7 H Eos % (Auto) 0.1 Baso % (Auto) 0.2 Lymph # (Auto) 1.42 [place] # (Auto) 1.2 H Eos # (Auto) 0.0 Baso # (Auto) 0.0 Abs Immat Gran (auto) 0.04 H Absolute Neuts (auto) 8.3 H Absolute Nucleated RBC 0.0 Nucleated RBC % 0.0 Sodium 136 L Potassium 4.0 Chloride 106 Carbon Dioxide 24 Anion Gap 6 L BUN 15 Creatinine 0.80 Estim Creat Clear Calc 51 Estimated GFR > 60 Glucose 89 Calcium 8.2 L Discharge Plan Discharge Patient Disposition: Home, Self-Care Discharge Instructions: See green instruction sheets Stand Alone Forms: General Discharge Instructions Follow-up/Referrals: Nory Bautista PA [Physician Manager [employer]] - Discharge Medications: New meloxicam 15 mg tablet 15 mg PO DAILY Qty: 30 0RF Rx Instructions: Cut in half. Take 1/2 in morning and 1/2 at night. Take with food. Stop if stomach upset. prednisone 5 mg tablet 5 mg PO DAILY 21 Days Qty: 21 0RF oxycodone-acetaminophen 5-325 mg tablet 1 - 2 tablet PO Q4-6H MDD 6 PRN (Reason: pain) Qty: 30 0RF Xarelto 10 mg tablet 10 mg PO DAILY 30 Days Qty: 30 0RF Continued PreserVision AREDS [id number] Capsule 2 cap PO DAILY acetaminophen [Tylenol Arthritis Pain] 650 mg Tablet Extended Release 650 mg PO Q12H PRN (Reason: Pain)
[2023-11-09] MEDS: MELOXICAM 7.5 MG TABLET PO (08:43)
[2023-11-09] MEDS: SENNA/DOCUSATE SODIUM TABLET 2 TAB PO (08:43)
[2023-11-09] MEDS: polyethylene glycoL 3350 17 GM POWD.PACK PO (08:43)
[2023-11-09] MEDS: FAMOTIDINE 20 MG TABLET PO (08:44)
[2023-11-09] MEDS: predniSONE 5 MG TABLET PO (08:44)
[2023-11-09] MEDS: RIVAROXABAN 10 MG TABLET PO (08:44)
[2023-11-09 09:55] VITALS: BP 121/65; PULSE 66; RESP 16; TEMP 36.4; O2SAT 100
--- NOTE | 2023-11-09 11:17 | PC.NURSE ---
iv out, abx completed, PT/OT cleared to go home. Xarelto card given with d/c papers as well as the green sheets from surgery. Jamie hose applied to left leg, dressing in place, dry/intact. denies pain. D/C given, denies further questions.
== END 2023-11-09 11:45 | disposition home or self-care (01) ==
LOC: ANHSURGERY 09:09 → ANH3MEDSUR 13:12
PROVIDERS: Physician Assistant Surgical; PCP Family Medicine; Visit Provider Orthopaedic Surgery
PROC: (CPT 27447; principal; 2023-11-08 07:30)
DX: M17.12 Unilateral primary osteoarthritis, left knee (principal); G89.18 Other acute postprocedural pain; G47.33 Obstructive sleep apnea (adult) (pediatric); Z86.718 Personal history of other venous thrombosis and embolism
CPT/HCPCS: 27447; 64447; 36415; 73560; 80048; 85025; 86850; 86900; 86901; 97110; 97116; 97161; 97165; 97530; 97535; A9270; C1713; C1776; J0171; J0690; J1100; J1170; J1596; J1885; J2250; J2270; J2405; J2704; J2795; J3010; J7030; J7120; J7512

== ENCOUNTER 2023-11-29 08:33 | Outpatient (CLI) | payer MEDICARE, BC, SELFPAY ==
--- NOTE | ~2023-11-29 | MM_ITS ---
EXAMINATION: MM screening xochitl BI w zack HISTORY: Screening TECHNIQUE: Craniocaudal and mediolateral oblique 3-D tomosynthesis images were obtained and synthetic 2-D images were generated. CAD analysis was submitted and interpreted. COMPARISON: Comparison to multiple prior studies sequentially, with oldest reviewed study dated 05/31. BREAST PARENCHYMAL COMPOSITION: There are scattered areas of fibroglandular density. FINDINGS: There is no evidence of suspicious mass, calcification, or architectural distortion to sugg est malignancy in either breast. There has been no suspicious interval change. IMPRESSION: 1. No mammographic evidence of malignancy. 2. Recommend routine screening mammography in one year. BI-RADS Category 1: Negative Reviewed, dictated and finalized at location A. ES INSPECTOR
== END 2023-11-29 08:34 | disposition home or self-care (01) ==
PROVIDERS: PCP Family Medicine; Visit Provider Family Medicine
DX: Z12.31 Encounter for screening mammogram for malignant neoplasm of breast (principal)
CPT/HCPCS: 77063; 77067

== ENCOUNTER 2023-12-25 12:23 | Outpatient (CLI) | payer MEDICARE, BC, SELFPAY ==
--- NOTE | ~2023-12-25 | XR_ITS ---
XR knee LT 3V DATE: 12/25/2023 12:46 INDICATION: Follow-up of left artificial knee joint TECHNIQUE: AP, lateral, sunrise views COMPARISON: November 28, 2023 left knee FINDINGS: Status post left total knee arthroplasty with patellar resurfacing. No fracture, dislocation, periosteal reaction or bone destruction. IMPRESSION: Status post left total knee arthroplasty Reviewed, dictated and finalized at location L.
== END 2023-12-25 12:24 | disposition home or self-care (01) ==
LOC: ANHIMG 12:27
PROVIDERS: PCP Family Medicine; Visit Provider Physician Assistant Surgical
DX: Z96.652 Presence of left artificial knee joint (principal)
CPT/HCPCS: 73562

== ENCOUNTER 2024-07-03 13:22 | Outpatient (CLI) | payer MEDICARE, BC, SELFPAY ==
--- NOTE | ~2024-07-03 | XR_ITS ---
EXAM: XR knee RT 3V DATE: 07/03/2024 13:41 HISTORY: M25.561 - Pain in right knee X 2 MONTHS NKI . COMPARISON: None available. FINDINGS: Normal mineralization. No fracture or dislocation. No lytic or blastic lesion. Severe medi al joint space narrowing. Moderate tricompartmental osteophytosis. Small volume joint fluid. 1.7 cm o ssified body projecting over the posterior joint recess. No erosion or periosteal change. Soft tissue s within normal limits. IMPRESSION: Tricompartmental right knee osteoarthritis, severe in the medial compartment. Possible lo ose body in a posterior joint recess. Small knee joint effusion. Reviewed, dictated and finalized at location K. IMPRESSION: Tricompartmental right knee osteoarthritis, severe in the medial co mpartment. Possible loose body in a posterior joint recess. Small knee joint ef fusion.
== END 2024-07-03 13:23 | disposition home or self-care (01) ==
LOC: ANHIMG 13:27
PROVIDERS: PCP Family Medicine
DX: M17.11 Unilateral primary osteoarthritis, right knee (principal); M25.461 Effusion, right knee
CPT/HCPCS: 73562

== ENCOUNTER 2024-08-04 13:06 | Outpatient (CLI) | payer MEDICARE, BC, SELFPAY ==
--- NOTE | ~2024-08-04 | CT_ITS ---
EXAMINATION: CT LE RT wo con DATE: 08/04/2024 13:29 INDICATION: Right knee osteoarthritis. Preoperative planning. TECHNIQUE: Computed tomography (CT) of the right lower limb was performed without intravenous contras t. Automated exposure control and iterative reconstruction technique were employed. The dose-length p roduct was 1626.12 mGy-cm. COMPARISON: Right knee radiographs 07/03/2024 FINDINGS: Right hip joint demonstrates mild osteoarthritis. Right knee demonstrates varus angulation. No fracture. There is severe osteoarthritis of medial compartment and moderate osteoarthritis of lat eral and patellofemoral compartments. There is a small knee joint effusion. There is a loose body pos terior to lateral femoral metaphysis. No Sullivan's cyst. IMPRESSION: 1. Severe right knee osteoarthritis. 2. Small right knee joint effusion with loose body. 3. Mild right hip osteoarthritis. Reviewed, dictated and finalized at location B.
[2024-08-04 13:59] LABS: Hematocrit 39.7 % (37.0-47.0)
[2024-08-04 14:11] LABS: Estimated Glomerular Filt Rate > 60; Glucose 85 mg/dL (65-110)
== END 2024-08-04 13:07 | disposition home or self-care (01) ==
LOC: ANHIMG 13:11
PROVIDERS: PCP Family Medicine; Visit Provider Orthopaedic Surgery
DX: M17.11 Unilateral primary osteoarthritis, right knee (principal); E78.2 Mixed hyperlipidemia
CPT/HCPCS: 36415; 73700; 82040; 82565; 82947; 85014; 85018

== ENCOUNTER 2024-09-10 10:41 | Outpatient (CLI) | payer MEDICARE, BC, SELFPAY ==
[2024-09-10 12:02] LABS: Basophils Percent Auto 0.7 % (0.2-1.2); Eosinophils Absolute Auto 0.1 K/mm3 (0-0.3); Eosinophils Percent Auto 1.7 % (0-4.4); Hematocrit 42.9 % (37.0-47.0); Immature Granulocyte Absolute 0.01 K/mm3 (0.00-0.031); Immature Granulocyte Percent A 0.2 % (0-0.5); Lymphocytes Absolute Auto 0.93 K/mm3 (0.9-3.2); Lymphocytes Percent Auto 15.5 % (18.3-44.2); Mean Corpuscular HGB Conc 32.6 g/dl (32-36); Mean Corpuscular Volume 97.9 fl (80-100); Mean Platelet Volume 9.9 fl (7.4-10.4); Monocytes Absolute Auto 0.7 K/mm3 (0.1-0.6); Monocytes Percent Auto 11.3 % (2.6-8.5); Neutrophils Absolute Auto 4.2 K/mm3 (1.3-6.7); Neutrophils Percent Auto 70.6 % (45.5-73.1); Platelet Count Result 231 k/mm3 (150-375); Red Blood Count 4.38 M/mm3 (4.2-5.4); Red Cell Distribution Width 12.8 % (11.5-14.5)
[2024-09-10 12:21] LABS: Albumin Level 4.2 g/dL (3.5-5.1); Estimated Glomerular Filt Rate > 60; Glucose 88 mg/dL (65-110)
[2024-09-10 12:35] LABS: Hemoglobin A1C 5.3 % (<5.7)
[2024-09-10 12:38] LABS: Urine Cotinine NEGATIVE
[2024-09-10 13:32] LABS: MRSA (PCR) NOT DETECTED (NOT DETECTE)
== END 2024-09-10 10:42 | disposition home or self-care (01) ==
LOC: ANHSURGERY 10:47
PROVIDERS: PCP Family Medicine; Visit Provider Orthopaedic Surgery
DX: M17.11 Unilateral primary osteoarthritis, right knee (principal); Z01.818 Encounter for other preprocedural examination
CPT/HCPCS: 80307; 82040; 82565; 82947; 83036; 85025; 87641

== ENCOUNTER 2024-10-07 02:53 | Day surgery (SDC) | payer MEDICARE, BC, SELFPAY ==
[2024-09-10 10:58] VITALS: BP 135/80; PULSE 75; RESP 16; TEMP 36.6; O2SAT 100; BMI 27.6
--- NOTE | 2024-09-10 11:19 | PC.NURSE ---
Report to the Outpatient Waiting Room, entrance under the green pavilion located off [facility], at time __8:30AM on date ___10/07/24____. Planned Procedure Time: ___10:30AM .? Time changes happen often and if your time is changed the preop area will call you the afternoon before. - You and your visitor will be asked to self-screen and do not enter if you have any COVID symptoms. Please call surgeon if you need to reschedule. - A mask is optional within the hospital at this time. Patients may have clear liquids (water, carbonated beverages, clear teas, apple juice) until 3 hours prior to surgery with a maximum of 20 ounces. - No food from midnight until time of surgery and no smoking. This includes no chewing gum, candy or mints. Take only the following medications with a SIP of water on the morning of surgery: NONE DO NOT STOP ANY OF YOUR OTHER PRESCRIPTION MEDICATIONS PRIOR TO SURGERY EXCEPT THE FOLLOWING Medications to discontinue per physician ___HOLD MELOXICAM(ALL NSAIDS) 7 DAYS PRE-OP PER DR SANABRIA- LAST DOSE 09/29/24 HOLD ALL VITAMINS/SUPPLEMENTS 3 DAYS PRE-OP PER ANESTHESIA- LAST DOSE 10/03/24. Please no make-up, nail kinyarwanda, hairspray, perfume, deodorant, or body powder the day of surgery.? No jewelry (including any body piercings) or valuables the day of surgery, leave them at home.? Please take a shower or bath the night before, or the morning of, surgery with an antibacterial soap.? Wear comfortable, loose fitting clothing.? - Jewelry must be removed prior to entering the operating room.? Rings and piercings that are not removed may be cut off. - The hospital will not accept responsibility for valuables.? - Please leave all valuables, including medications, at home the day of surgery. If you are going home after surgery, a licensed meals on wheels driver must drive you home.? - NO public transportation without another adult if you receive anesthesia. - We recommend that an adult stay with you for 24 hours following discharge. - We also recommend that you do not drive, make important decision, drink alcoholic beverages, or take any drugs that were not prescribed by your health care provider for at least 24 hours after your discharge time. Follow any additional instructions given to you from your surgeon. Telephone instructions given to ____PATIENT & HUSBAND and asked if any additional questions and then verbalized understanding. Patient advised to call surgeon office or pre surgery nurse liaison [phone] if any additional questions.
[2024-10-07] VITALS (17 sets, daily range): BP systolic 126–153; BP diastolic 67–91; PULSE 67–79; RESP 12–18; TEMP 36–36.6; O2SAT 95–100
--- NOTE | ~2024-10-07 | XR_ITS ---
Right Knee Technique: Portable AP and crosstable lateral views Clinical History: Status post TKR Findings: Patient is status post total knee replacement. Orthopedic hardware alignment appears anatom ic. No hardware complication is evident. Subcutaneous emphysema and swelling is likely postoperative in nature. No acute osseous fracture is seen. Impression: Status post total knee replacement, without evidence of hardware complication. Reviewed, dictated and finalized at location . R SPATIAL SCIENTIST Impression: Status post total knee replacement, without evidence of hardware complication.
--- NOTE | 2024-10-07 07:25 | WPDHPUPDATE1 ---
History and Physical Update Update Date/Time: 10/07/24 07:25 History and Physical has been reviewed, including an updated exam of the patient. There are NO changes in the patient's condition. Risks, benefits, and alternatives have been discussed and questions answered. Patient agrees to proceed with procedure.
--- NOTE | 2024-10-07 07:48 | WPDANESEPPF ---
Anes - Initial Pre Proc Eval Procedure: Operation Date: 10/07/24 10:30 Proposed Procedures p Right Custom Total Knee Arthroplasty - Evans Manzo MD Date/Time: 10/07/24 07:48 Surgeon: Evans Manzo MD Pre Op Diagnosis: O A Right Knee Patient Data Age: 74 Gender: F Height: 1.62 m Weight: 72.3 kg Last Vital Signs Temp 36.6 C 09/10/24 10:58 Pulse 75 09/10/24 10:58 Resp 16 09/10/24 10:58 BP 135/80 09/10/24 10:58 Pulse Ox 100 09/10/24 10:58 O2 Del Method Room Air 09/10/24 10:58 Allergies Allergy/AdvReac Type Severity Reaction Status Date / Time No Known Allergies Allergy Verified 10/07/24 09:15 Home Medications ?Medication ?Instructions ?Recorded ?Confirmed ?Type vitamins A,C,W-[id number]-txdhse 4,296 2 cap PO DAILY 08/30/22 09/10/24 History mcg-226 mg-90 mg capsule (PreserVision AREDS) acetaminophen 650 mg 650 mg PO Q12H PRN Pain 10/17/23 09/10/24 History tablet,extended release (Tylenol Arthritis Pain) meloxicam 15 mg tablet 15 mg PO DAILY #30 tabs 07/03/24 09/10/24 Rx amoxicillin 500 mg tablet 500 mg PO ONCE #4 tabs 09/08/24 09/10/24 Rx diphenhydramine HCl 25 mg capsule 25 mg PO HS PRN Insomnia 09/10/24 09/10/24 History (Benadryl) rivaroxaban 10 mg tablet (Xarelto) 10 mg PO DAILY 30 days #30 tabs 09/10/24 09/10/24 Rx oxycodone-acetaminophen 5 mg-325 1 - 2 tablet PO Q4-6H PRN pain 7 10/07/24 Rx mg tablet days #30 tabs prednisone 5 mg tablet 5 mg PO DAILY 3 weeks #21 tabs 10/07/24 Rx Patient hx anesthesia problems: none Family hx anesthesia problems: none Results Review: All pre-operative results and documents have been reviewed as part of the pre-operative evaluation. [facility] Past Medical History Medical History (Updated 10/07/24 @ 07:49 by Chris Bustamante DO) History of left breast cancer Paroxysmal SVT (supraventricular tachycardia) Acute effusion of both middle ears Cerumen impaction Ankle pain, right Adult BMI 25.0-25.9 kg/sq m BMI 26.0-26.9,adult Chronic deep vein thrombosis (DVT) of left lower extremity MORALES (dyspnea on exertion) Palpitations with regular cardiac rhythm Hypersomnia Mixed hyperlipidemia Obstructive sleep apnea Screening for thyroid disorder Sleep apnea in adult Varicose vein of leg Vertigo Surgical History Surgical History (Updated 10/07/24 @ 07:29 by DEN Yu) H/O left cataract extraction History of tubal ligation Family History Family History Mother Hypertension Carcinoma of colon Family history of diabetes mellitus in first degree relative Family history of malignant neoplasm of breast in first degree relative Patient's mother is , Onset Age: 82 Grandparent Family history of coronary artery disease Acute myocardial infarction Malignant neoplasm of prostate Sibling Family history of diabetes mellitus in first degree relative Family history of colonic diverticulitis Family history of heart disease in male family member before age 55 Diabetes mellitus Family history of congestive heart failure Patient's brother is in good health Family history of sleep apnea Father Family history of emphysema Family history of renal failure, Onset Age: 79 Family history of congenital heart disease Family history of malignant neoplasm of urinary bladder Family history of congestive heart failure Sibling , heart failure No problems noted. Other Family history of malignant neoplasm of male breast Social History Social History Smoking status: Never smoker Second hand tobacco smoke exposure: Yes Additional smoking assessment comments: DENIES ANY FORM OF TOBACCO USE Alcohol intake: current Drinks per week: 2 Substance use: never Substance use type: does not use Do You Feel Safe in your Home?: Yes Lack of Transportation: No Lack of Food: Never True Current Housing: I Have Housing Concerned About Future Housing: No Difficulty Paying Gas/Electric Bills: No Difficulty Paying for Meds: No Currently Unemployed: No Education: Bachelor's Degree Difficulty w/ Childcare or Family Care: No Living arrangements: with family Additional living arrangements comments: [facility] 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 Informed Consent: The patient's anesthetic plan and its attendant risks and benefits were discussed with the patient/family/POA. Questions were solicited and answers provided to the satisfaction of the patient/family/POA.
[2024-10-07] MEDS: ACETAMINOPHEN 500 MG TABLET 1000 MG PO (08:50)
[2024-10-07] MEDS: LACTATED RINGERS 1,000 ML 30 ML IV CONT ×2 (08:55→12:43)
[2024-10-07] MEDS: TRANEXAMIC ACID 1,000MG/ISO100 1,000 MG/100 ML BAG 200 MG IVPB (08:55)
[2024-10-07] MEDS: ceFAZolin 2 GM/D5W 50 ML 2 GM/50 ML BAG IVPB ×2 (10:02→18:16)
[2024-10-07] MEDS: SODIUM CHLORIDE 0.9% IV 37.7 ML, MORPHINE SULFATE INJ (*CRX) 2 MG, ROPivacaine HCL 1% 2... INFILTRATE (10:34)
--- NOTE | 2024-10-07 11:45 | P.OP_ITS ---
Procedure Note - Detailed Date of Procedure 10/07/24 Pre-op Diagnosis Right knee degenerative arthritis. Post-op Diagnosis Same Procedure Performed Custom total knee arthroplasty, right. Surgeon Evans Manzo MD [employer]che Loader And Unloader Nory Bautista PA-C Anesthesia General Findings Severe varus disease. Satisfactory bone quality. No releases required. Description of Procedure Preoperative antibiotics were given. The limb was prepped and draped in the usual sterile fashion with a well-padded tourniquet high on the thigh. The limb was exsanguinated and the tourniquet inflated to 300 mmHg. A longitudinal incision was created just medial to the patella. A trivector approach to the knee was performed. Arthrotomy was taken down through the joint capsule. No significant releases were initially taken. The femur was exposed and the F1 jig was applied. The coring tool was used to remove the cartilage for the F2 jig to sit flush with the bone. The jig was pinned and the distal cut carefully taken. Caliper measurements confirmed appropriate bony resections according to the preoperative templated plan. The F4 cutting jig for the femur was applied, at the standard rotation. The AP and anterior chamfer cuts were taken. The F5 jig was applied and the posterior chamfer cuts were taken. The tibia was prepared using the T1 jig, after removing cartilage for the jig contact points. Proper alignment was checked with the alignment denis. The tibia was cut using the T1u guide. Gap balancing was performed. Gap measurements were taken and the knee was trialed. Excellent alignment and soft tissue balancing was confirmed. The posterior cruciate ligament was recessed along the proximal tibia. The patella was cut for resurfacing. Three lug holes were drilled. Meniscal remnants were removed. The trial components were assembled. Excellent range of motion and proper soft tissue balancing were confirmed throughout the full range of motion. Patellar tracking was excellent. The knee was copiously irrigated periodically throughout the procedure. The real implants were cemented into position. Excess cement was carefully removed. The wound was closed in layers with interrupted #1 Vicryl suture, 2-0 strata fix suture, 0 strata fix suture, 2-0 strata fix suture. Steri-Strips placed on the skin with the knee flexed. Sterile bulky dressing applied. The patient was brought to the recovery room in stable condition. There were no complications. Physician instructional support assistant, Nory Bautista PA-C, required for surgery; including patient positioning, draping, tissue retraction, maintaining instrument position, cement removal, wound closure, and dressing placement. Implants Conformis Custom total knee arthroplasty. Cemented. Cruciate retaining. 6A insert. 35 mm oval patella. Estimated Blood Loss 100 Drains No Complications No immediate complications Condition Stable Disposition PACU [facility] Billing Surgery - Charge Forward: Surgery Billing
[2024-10-07] MEDS: fentaNYL CITRATE INJ (*CRX) 100 MCG/2 ML VIAL 25 MCG IV PUSH ×8 (12:05→12:56)
--- NOTE | 2024-10-07 13:20 | PM.DS ---
DS: Admitting Diagnosis Discharge Date 10/08/24 Admitting Diagnosis Knee arthritis. DS: Discharge Diagnosis Discharge Diagnosis (1) Status post total right knee replacement: Code(s): Z96.651 - Presence of right artificial knee joint Status: Acute Assessment and Plan: Postop day 1: Right total knee arthroplasty. Patient tolerated procedure well. No complications. Pain manageable with pain medication. No numbness or tingling. We had a lengthy discussion regarding postoperative wound care, limitations, expectations, and exercises. Patient shows good understanding. She has had initial physical therapy and is tolerating it well. DVT prophylaxis: Xarelto 30 days. She has a history of DVT. Pain medication: Percocet. Patient has followup appointment with Dr. Manzo in 3 weeks. DS: Summary Hospital Course Reason for hospitalization: Total knee arthroplasty Hospital Course: Patient tolerated procedure well. Has had initial PT/OT. Status at Discharge Functional status at discharge: uses cane/walker Overall status at discharge: patient is progressing back to baseline Time Spent with Patient Time attestation: Total time spent providing and/or coordinating discharge services: Exam Narrative: Overweight Female. Resting comfortably in bed. Wearing compression socks bilaterally. Dressing intact with no drainage. Moderate swelling. No ecchymosis. No erythema. No hematoma. Range of motion limited due to pain. Calf nontender. Neurologic status intact. No varicosities. Distal pulses palpable. DS: Data Data Completed and Pending Labs on day of discharge: Labs from last 24 hours 10/07/24 08:50 Blood Type B Negative Antibody Screen Negative Discharge Plan Discharge Patient Disposition: Home, Self-Care Discharge Instructions: See green instruction sheets Patient Language: Croatian Stand Alone Forms: General Discharge Instructions Follow-up/Referrals: Nory Bautista PA [Physician Position Description Manager] - Discharge Medications: New prednisone 5 mg tablet 5 mg PO DAILY 21 Days Qty: 21 0RF oxycodone-acetaminophen 5-325 mg tablet 1 - 2 tablet PO Q4-6H PRN (Reason: pain) 7 Days Qty: 30 0RF Continued PreserVision AREDS [id number] Capsule 2 cap PO DAILY Xarelto 10 mg tablet 10 mg PO DAILY 30 Days Qty: 30 0RF Rx Instructions: Take for 30 days AFTER surgery. diphenhydramine HCl [Benadryl] 25 mg Capsule 25 mg PO HS PRN (Reason: Insomnia) acetaminophen [Tylenol Arthritis Pain] 650 mg Tablet Extended Release 650 mg PO Q12H PRN (Reason: Pain) Held meloxicam 15 mg tablet 15 mg PO DAILY Qty: 30 3RF Hold Instructions: Resume on 11/04/24. Hold while taking Xarelto.
--- NOTE | 2024-10-07 16:10 | ADMGEN ---
This patient, Tita Foster, was admitted to [address] [place] [address] Room 300-01. Patient/family oriented to hospital policies and general routines including ID bracelet, bed and alarms, visiting hours, pain management, procedures, bathroom and other care routines, personal items, smoking policy, room service/diet, and visiting hours. Information on how to activate the Rapid Response Team has been discussed. Patient/Family are encouraged to report perceived risks to care and to ask questions if they do not understand what they are told or what they should do.
[2024-10-07] MEDS: SENNA/DOCUSATE SODIUM TABLET 2 TAB PO (16:39)
[2024-10-07] MEDS: CYCLOBENZAPRINE HCL 10 MG TABLET PO (16:40)
[2024-10-07] MEDS: predniSONE 5 MG TABLET PO (16:40)
[2024-10-07] MEDS: SODIUM CHLORIDE 0.9% IV 1,000 ML 125 ML IV CONT (16:42)
[2024-10-07] MEDS: ACETAMINOPHEN 325 MG TABLET 650 MG PO (18:16)
[2024-10-07] MEDS: FAMOTIDINE 20 MG TABLET PO (20:42)
[2024-10-08 00:15] VITALS: BP 127/63; PULSE 63; RESP 18; TEMP 35.9; O2SAT 96
[2024-10-08] MEDS: ceFAZolin 2 GM/D5W 50 ML 2 GM/50 ML BAG IVPB ×2 (01:00→09:05)
[2024-10-08 04:25] VITALS: BP 117/68; PULSE 60; RESP 18; TEMP 37.3; O2SAT 97
[2024-10-08 06:57] LABS: Basophils Percent Auto 0.4 % (0.2-1.2); Eosinophils Percent Auto 0.1 % (0-4.4); Hematocrit 38.6 % (37.0-47.0); Hemoglobin 12.4 g/dL (12.0-15.0); Immature Granulocyte Absolute 0.03 K/mm3 (0.00-0.031); Immature Granulocyte Percent A 0.4 % (0-0.5); Lymphocytes Absolute Auto 0.89 K/mm3 (0.9-3.2); Lymphocytes Percent Auto 10.9 % (18.3-44.2); Mean Corpuscular HGB Conc 32.1 g/dl (32-36); Mean Corpuscular Volume 99.5 fl (80-100); Mean Platelet Volume 10.3 fl (7.4-10.4); Monocytes Absolute Auto 0.9 K/mm3 (0.1-0.6); Monocytes Percent Auto 10.7 % (2.6-8.5); Neutrophils Absolute Auto 6.4 K/mm3 (1.3-6.7); Neutrophils Percent Auto 77.5 % (45.5-73.1); Platelet Count Result 226 k/mm3 (150-375); Red Blood Count 3.88 M/mm3 (4.2-5.4); White Blood Count 8.2 K/mm3 (4.5-10.0)
[2024-10-08 07:21] LABS: Anion Gap 1 mmol/L (4-12); Blood Urea Nitrogen 19 mg/dL (7-17); Calcium 8.7 mg/dL (8.4-10.2); Carbon Dioxide 24 mmol/L (22-30); Chloride 110 mmol/L (98-107); Estimated CRCL calculation 45 ml/min; Estimated Glomerular Filt Rate > 60; Glucose 85 mg/dL (65-110); Potassium 4.6 mmol/L (3.4-5.0); Sodium 135 mmol/L (137-145)
[2024-10-08 09:02] VITALS: BP 148/73; PULSE 62; RESP 18; TEMP 36.3; O2SAT 100
[2024-10-08] MEDS: SENNA/DOCUSATE SODIUM TABLET 2 TAB PO (09:03)
[2024-10-08] MEDS: RIVAROXABAN 10 MG TABLET PO (09:03)
[2024-10-08] MEDS: FAMOTIDINE 20 MG TABLET PO (09:03)
[2024-10-08] MEDS: oxyCODONE/ACETAMINOPHEN (*CRX) 5-325 MG TABLET 1 TABLET PO (09:04)
[2024-10-08] MEDS: polyethylene glycoL 3350 17 GM POWD.PACK PO (09:05)
--- OUTSIDE RECORDS SUMMARY | 2024-10-14 02:41 | XMS_ITS | Encounter Summary ---
Author Organization [facility] [place] [address] [place] [address] Care Team Providers Care 3D Artist Name Role Phone Unavailable Primary Care Provider Unavailabl e Encounter Details Date Type Department Care Team (Latest Contact Info) Description 09/11/2024 Travel Social History Tobacco Use Types Packs/Day Years Used Date Smoking Tobacco: Never Smokeless Tobacco: Never Alcohol Use Standard Drinks/Week Comments Yes 2 (1 standard drink = 0.6 oz pur e alcohol) social 2-3 times a week Comments Unknown Sex and Gender Information Value Date Recorded Sex Assigned at Not on file Legal Sex Female 9:02 PM PDT Gender Identity Not on file Sexual Orientation Not on file COVID-19 Exposure Response Date Recorded In the last 10 days, have yo u been in contact with someone who was confirmed or suspected to have Coronavirus/COVID-19? No / Unsure 09/11/2024 12:20 PM AVIONICS SUPERVISOR documented as of this encounter Plan of Treatment Upcoming Encounters Date Type Department Care Team (Late st Contact Info) Description 04/06/2025 2:00 PM CDT Office Visit [facility] [address] [place] [phone] Malena Baker, DMD [address] [place] [address] documented as of this encounter Visit Diagnoses Not on filedocumented in this encounter
--- OUTSIDE RECORDS SUMMARY | 2024-10-14 02:41 | XMS_ITS | Encounter Summary ---
Author Organization [facility] [place] [address] [place] [address] Care Team Providers Care Resistor Testing Machine Operator Name Role Phone Unavailable Primary Care Provider Unavailabl e Encounter Details Date Type Department Care Team (Latest Contact Info) Description 02/26/2024 Travel Social History Tobacco Use Types Packs/Day [...] suspected to have Coronavirus/COVID-19? No / Unsure 02/26/2024 10:43 AM CDT documented as of this encounter Plan of Treatment Upcoming Encounters Date Type Department Care Team (Late st Contact Info) Description 04/06/2025 2:00 PM CDT Office Visit [facility] [address] [place] [phone] Malena Baker, DMD [address] [place] [address] documented as of this encounter Visit Diagnoses Not on filedocumented in this encounter
--- OUTSIDE RECORDS SUMMARY | 2024-10-14 02:41 | XMS_ITS | Encounter Summary ---
Author Organization [facility] [place] [address] [place] [address] Care Team Providers Care Net Developer Architect Name Role Phone Unavailable Primary Care Provider Unavailabl e Encounter Details Date Type Department Care Team (Latest Contact Info) Description 04/01/2021 Travel Social History Tobacco Use Types Packs/Day Years Used Date Smoking Tobacco: Never Assessed Comments Unknown Sex and Gender Information Value Date Recorded Sex Assigned at Not on file Legal Sex Female 9:02 PM PDT Gender Identity Not on file Sexual Orientation Not on file COVID-19 Exposure Response Date Recorded In the last month, have you been in contact with someone who was confirmed or suspected to have Coronavirus / COVID-19? No / Unsure 04/01/2021 9:39 AM PDT documented as of this encounter Plan of Treatment Upcoming Encounters Date Type Department Care Team (Late st Contact Info) Description 04/06/2025 2:00 PM CDT Office Visit [facility] [address] [place] [address] Malena Baker, DMD [address] [place] [address] documented as of this encounter Visit Diagnoses Not on filedocumented in this encounter
--- OUTSIDE RECORDS SUMMARY | 2024-10-14 02:41 | XMS_ITS | Encounter Summary ---
Author Organization [facility] [place] [address] [place] [address] Care Team Providers Care Field Logistics Coordinator Name Role Phone Unavailable Primary Care Provider Unavailabl e Encounter Details Date Type Department Care Team (Late st Contact Info) Description 12/07/2022 3:15 PM LACE SEWER Office Visit [facility] [address] [place] [address] Javon Braxton DDS [address] [place] [address] Social History Tobacco Use Types Packs/Day Years [...] suspected to have Coronavirus/COVID-19? No / Unsure 12/07/2022 2:30 PM LACE SEWER documented as of this encounter Miscellaneous Notes * Dental Procedure Details - Javon Braxton DDS - 12/07/2022 3:15 PM LACE SEWER EXAM NOTE Chief Condition: no complaint, wants prophylaxis HPI: No hx of pain Past Medical History: Diagnosis Date Cancer (CMS/HCC) Diverticulitis of colon History of radiation therapy No past surgical history on file. Social History Tobacco Use Smoking status: Never Smokeless tobacco: Never Substance Use Topics Alcohol use: Yes Alcohol/week: 2.0 - 3.0 standard drinks Types: 1 Glasses of wine, 1 - 2 Cans of beer per week Comment: social 2-3 times a week No family history on file. Current Outpatient Medications on File Prior to Visit Medication Sig Dispense Refill lovastatin (MEVACOR) 10 mg tablet Take 10 mg by mouth 1 (one) time each day. No current facility-administered medications on file prior to visit. Radiographic Interpretation: Associated radiographs for today's visit were reviewed and finding(s) were discussed with the patient: Normal Hard Tissue Exam: No decay Cold sensitivity: Test to Cold not completed Heat sensitivity: Test to Hot not completed Percussion: Percussion not completed Mobility: WNL Occlusion: Class I molar Perio: Pocket Charting: Full mouth pocket charting was completed Radiographic studies shows no horizontal bone loss with no vertical bone loss Perio Diagnosis: Healthy periodontia Patient has light plaque and calculus build up Patient's oral hygiene is Great TMJ: TMJ Clicking: TMJ clicking WNL TMJ Pain: TMJ Pain WNL Oral cancer screening: Performed oral cancer screening with head, including face and mouth, neck & joint exam. WNL Review of Systems: All other systems negative for symptoms after thorough clinical and radiographicexamination After thorough examination, the patient was advised of the following: Prophylaxis and recall recommended. Prognosis: favorable Treatment Plan: Indication for root canal treatment Orders Placed This Encounter Procedures COMPREHENSIVE ORAL EVALUATION - NEW OR ESTABLISHED PATIENT BITEWINGS - FOUR RADIOGRAPHIC IMAGES PROPHYLAXIS - ADULT ORAL HYGIENE INSTRUCTIONS * Dental Procedure Details - Javon Braxton DDS - 12/07/2022 3:15 PM LACE SEWER Adult Prophylaxis Procedure Note Medical History: Medical history reviewed and confirmed there are no contraindications to treatment. All risks, benefits, complications, and alternative treatments, including no treatment, have been discussed and all relative questions have been addressed. Consent has been obtained to perform the procedure. Patient and clinician(s) wore proper eye protection. An initial periodontal assessment was completed Supragingival Calc: Localized moderate Subgingival Calc: Localized light Plaque: Localized light Inflammation: Localized mild Stain: None Bone Loss: None Scaling: Hand scaled and ultrasonic used Bulgarian: Full mouth lithuanian completed Irrigation: No irrigation recommended Varnish: Patient/Parent declined fluoride varnish Oral Hygiene: Great Discussed oral hygiene instructions with patient. Adjunctive recommendation were discussed including: None Pocket Depth: Generalized 1-3mm Continuing Care (CCX) documented in this encounter Plan of Treatment Upcoming Encounters Date Type Department Care Team (Late st Contact Info) Description 04/06/2025 2:00 PM CDT Office Visit [facility] [address] [place] [phone] Malena Baker, ROQUE [address] [place] [address] documented as of this encounter Procedures Procedure Name Priority Date/Time Associated Diagnosis Comments ORAL HYGIENE INSTRUCTIONS Routine 2022 3:15 PM LACE SEWER PROPHYLAXIS - ADULT Routine 12/07/2022 3 :15 PM LACE SEWER BITEWINGS - FOUR RADIOGRAPHIC IMAGES Routine 12/07/2022 3:15 PM LACE SEWER COMPREHENSIVE ORAL EVALUATION - NEW OR ESTABLISHED PATIENT Routine 12/07/2022 3:15 PM LACE SEWER documented in this encounter Visit Diagnoses Not on filedocumented in this encounter
--- OUTSIDE RECORDS SUMMARY | 2024-10-14 02:41 | XMS_ITS | Encounter Summary ---
Author Organization [facility] [place] [address] [place] [address] Care Team Providers Care Film Processor Name Role Phone Unavailable Primary Care Provider Unavailabl e Encounter Details Date Type Department Care Team (Late st Contact Info) Description 02/26/2024 12:00 PM CDT Office Visit [facility] [address] [place] [phone] Malena Baker, DMD [address] [place] [address] Encounter for dental examination and cleaning without abnormal findings (Primary Dx) Social History Tobacco Use Types Packs/Day Years [...] AM CDT documented as of this encounter Miscellaneous Notes * Dental Procedure Details - Malena Oneil DMD - 02/26/2024 12:00 PM CDT Adult Prophylaxis Procedure Note Medical History: Medical history reviewed and confirmed there are no contraindications to treatment. All risks, benefits, complications, and alternative treatments, including no treatment, have been discussed and all relative questions have been addressed. Consent has been obtained to perform the procedure. Patient and clinician(s) wore proper eye protection. An initial periodontal assessment was completed Supragingival Calc: None Subgingival Calc: None Plaque: Generalized light Inflammation: None Stain: None Scaling: Hand scaled and ultrasonic used Italian: Full mouth afghan completed Irrigation: No irrigation recommended Fluoride: Fluoride applied and instructions given Oral Hygiene: Good Discussed oral hygiene instructions with patient. Adjunctive recommendation were discussed including: Oral-B Electric TB and Oral- B Water Dietitian Consultant Continuing Care (CCX) * Dental Procedure Details - Malena Oneil DMD - 02/26/2024 12:00 PM CDT EXAM NOTE Chief Condition: no complaint, wants prophylaxis HPI: Past Medical History: Diagnosis Date Cancer (CMS/HCC) (HCC) Diverticulitis of colon History of radiation therapy No past surgical history on file. Social History Tobacco Use Smoking status: Never Smokeless tobacco: Never Substance Use Topics Alcohol use: Yes Alcohol/week: 2.0 - 3.0 standard drinks of alcohol Types: 1 Glasses of wine, 1 - [...] patient: Normal Hard Tissue Exam: No decay Perio: NV- pocket charting TMJ: TMJ Clicking: TMJ clicking in left joint TMJ Pain: TMJ Pain WNL Oral cancer screening: Performed oral cancer screening with head, including face and mouth, neck & joint exam. WNL Review of Systems: All other systems negative for symptoms after thorough clinical and radiographicexamination After thorough examination, the patient was advised of the following: Prophylaxis and recall recommended. Prognosis: favorable Treatment Plan: CCX Prophy Orders Placed This Encounter Procedures PERIODIC ORAL EVALUATION - ESTABLISHED PATIENT BITEWINGS - FOUR RADIOGRAPHIC IMAGES PROPHYLAXIS - ADULT TOPICAL APPLICATION OF FLUORIDE VARNISH ORAL HYGIENE INSTRUCTIONS PLAN VISIT FEE documented in this encounter Plan of Treatment Upcoming Encounters Date Type Department Care Team (Late st Contact Info) Description 04/06/2025 2:00 PM CDT Office Visit [facility] [address] [place] [address] Malena Baker DMD [address] [place] [address] documented as of this encounter Procedures Procedure Name Priority Date/Time Associated Diagnosis Comments PLAN VISIT FEE Routine 02/26/2024 12:00 PM CDT ORAL HYGIENE INSTRUCTIONS Routine 02/26/2024 12:00 PM CDT TOPICAL APPLICATION OF FLUORIDE VARNISH Routine 02/26/2024 12:00 PM CDT PROPHYLAXIS - ADULT Routine 02/26/2024 1 2:00 PM CDT Encounter for dental examination and cleaning without abnormal findings BITEWINGS - FOUR RADIOGRAPHIC IMAGES Routine 02/26/2024 12:00 PM CDT PERIODIC ORAL EVALUATION - ESTABLISHED PATIENT Routine 02/26/2024 12:00 PM CDT Encounter for dental examination and cleaning without abnormal findings documented in this encounter Visit Diagnoses Diagnosis Encounter for dental examination and cleaning without abnormal findings- Primary documented in this encounter
--- OUTSIDE RECORDS SUMMARY | 2024-10-14 02:41 | XMS_ITS | Encounter Summary ---
Author Organization [facility] Address [address] [place] [address] Care Team Providers Care Consulting Senior Practice Director Name Role Phone Unavailable Primary Care Provider Unavailabl e Encounter Details Date Type Department Care Team (Late st Contact Info) Description 04/14/2022 10:00 AM CDT Office Visit [place] [id number] [place] [address] Hailey Garibay, [facility] [address] [place] [address] Social History Tobacco Use Types Packs/Day Years [...] on file Sexual Orientation Not on file documented as of this encounter Last Filed Vital Signs Vital Sign Reading Time Taken Comments Blood Pressure 125/70 04/14/2022 9:51 AM CDT Pulse 63 04/14/2022 9:51 AM CDT Temperature - - Respiratory Rate - - Oxygen Saturation - - Inhaled Oxygen Concentration - - Weight - - Height - - Body Mass Index - - documented in this encounter Miscellaneous Notes * Dental Procedure Details - Hailey Garibay RDH - 04/14/2022 10:00 AM CDT Adult Prophylaxis Procedure Note Medical History: Medical history reviewed and confirmed there are no contraindications to treatment. All risks, benefits, complications, and alternative treatments, including no treatment, have been discussed and all relative questions have been addressed. Consent has been obtained to perform the procedure. Patient and clinician(s) wore proper eye protection. An initial periodontal assessment was completed CC: None BrushinxD w/ manual Flossinx a week Supragingival Calc: Localized light Subgingival Calc: Localized light Plaque: Localized light Inflammation: Loc light. Gen mild bleeding. Stain: Localized light Bone Loss: None Scaling: Hand scaled and ultrasonic used Thai: Full mouth ecuadorean completed Irrigation: No irrigation recommended Varnish: Fluoride varnish applied and instructions given Oral Hygiene: Good Discussed oral hygiene instructions with patient. Hyg Rec'd: Reinforced need to brush 2xD sondra at night and flossing daily below the gum line using the c-shaped flossing method. Suggested electric tb and explained benefits of using one. Explained while using manual tb to use soft [place] motions, NO scrubbing back and forth. Pocket Depth: Generalized 1-3mm LAURA: Mild Gingival Recession: Localized CCX done by Dr. Ceja NV: CCX 6mr 4bws fl documented in this encounter Plan of Treatment Upcoming Encounters Date Type Department Care Team (Late st Contact Info) Description 04/06/2025 2:00 PM CDT Office Visit [facility] [address] [place] [phone] Tyron Oneil Malena, DMD [address] [place], [place] [phone] documented as of this encounter Procedures Procedure Name Priority Date/Time Associated Diagnosis Comments ORAL HYGIENE INSTRUCTIONS Routine 2021 10:00 AM CDT TOPICAL APPLICATION OF FLUORIDE VARNISH Routine 04/14/2022 10:00 AM CDT PROPHYLAXIS - ADULT Routine 04/14/2022 1 0:00 AM CDT 20 ROOT CANAL Routine 04/14/2022 12:00 AM CDT 20 PFM CROWN Routine 04/14/2022 12:00 AM CDT documented in this encounter Visit Diagnoses Not on filedocumented in this encounter
--- OUTSIDE RECORDS SUMMARY | 2024-10-14 02:41 | XMS_ITS ---
Author Organization [facility] Address [address] [place] [address] Care Team Providers Care Flame Hardener Name Role Phone Unavailable Unavailable Unavailable Surgery Details Not on file Complications Check Surgery Details section. Procedure Estimated Blood Loss Check Surgery Details section. Procedure Findings Check Surgery Details section. Procedure Specimens Taken Check Surgery Details section.
--- OUTSIDE RECORDS SUMMARY | 2024-10-14 02:41 | XMS_ITS | Encounter Summary ---
Author Organization [facility] [place] [address] [place] [address] Care Team Providers Care Shafting Cleaner Name Role Phone Unavailable Primary Care Provider Unavailabl e Encounter Details Date Type Department Care Team (Late st Contact Info) Description 04/01/2021 11:00 AM CDT Office Visit [facility] [address] [place] [phone] Rosaura Randall, DMD [address] [place] [address] Social History Tobacco Use Types Packs/Day Years [...] AM PDT documented as of this encounter Miscellaneous Notes * Dental Procedure Details - Rosaura Randall DMD - 04/01/2021 11:00 AM CDT Adult Prophylaxis Procedure Note No past medical history on file. Reviewed patient's medical history. Medical history updated. An initial periodontal assessment was completed Supragingival Calc: Generalized light Subgingival Calc: Generalized Light Plaque: Generalized moderate Inflammation: Generalized mild Stain: Generalized light Bone Loss: None Scaling: Hand scaled and ultrasonic used Japanese: Full mouth kinyarwanda completed Irrigation: No irrigation recommended Varnish: Fluoride varnish applied and instructions given Oral Hygiene: Good OHI given. Adjunctive recommendation were discussed including: None Pocket Depth: Generalized 1-3mm LAURA: Mild Gingival Recession: Generalized Next Visit: Continuing Care (CCX) * Dental Procedure Details - Rosaura Randall DMD - 04/01/2021 11:00 AM CDT ..CCX - CONTINUING CARE EXAM: Pt presents for recall and CCX. Health history discussed with pt. Pt reports no pain or sensitivity with any teeth. Radiographs: updated at next CCX Performed head and neck exam with cancer screen complete. TMJ exam reveals: clicking, no pain on opening IOE reveals no carious lesions. Pt states that she went to another office for a crown on #20 Pt understands risks of delaying or denying treatment. Candidate for: documented in this encounter Plan of Treatment Upcoming Encounters Date Type Department Care Team (Late st Contact Info) Description 04/06/2025 2:00 PM CDT [place] [facility] [address] [place] [address] Malena Baker, ROQUE [address] [place] [address] documented as of this encounter Procedures Procedure Name Priority Date/Time Associated Diagnosis Comments OFFICE VISIT FOR OBSERVATION (DURING REGULARLY SCHEDULED HOURS) - NO OTHER SERVICES PERFORMED Routine 04/01/2021 11:00 AM CDT PERIODIC ORAL EVALUATION - ESTABLISHED PATIENT Routine 04/01/2021 11:00 AM CDT documented in this encounter Visit Diagnoses Not on filedocumented in this encounter
--- OUTSIDE RECORDS SUMMARY | 2024-10-14 02:41 | XMS_ITS | Encounter Summary ---
Author Organization [facility] Address [address] [place] [address] Care Team Providers Care Vocational Director Name Role Phone Unavailable Primary Care Provider Unavailabl e Encounter Details Date Type Department Care Team (Late st Contact Info) Description 10/27/2019 Converted [facility] Chart Documents [facility] [address] [place] [address] Social History Tobacco Use Types Packs/Day Years Used Date Smoking Tobacco: Never Assessed Comments Unknown Sex and Gender Information Value Date Recorded Sex Assigned at Not on file Legal Sex Female 9:02 PM PDT Gender Identity Not on file Sexual Orientation Not on file documented as of this encounter Plan of Treatment Upcoming Encounters Date Type Department Care Team (Late st Contact Info) Description 04/06/2025 2:00 PM CDT Office Visit [facility] [address] [place] [phone] Malena Baker, DMD [address] [place], [place] [phone] documented as of this encounter Visit Diagnoses Not on filedocumented in this encounter
--- OUTSIDE RECORDS SUMMARY | 2024-10-14 02:41 | XMS_ITS | Encounter Summary ---
Author Organization [facility] Address [address] [place] [address] Care Team Providers Care Professor Of Medicine Name Role Phone Unavailable Primary Care Provider Unavailabl e Encounter Details Date Type Department Care Team (Latest Contact Info) Description 12/07/2022 Travel Social History Tobacco Use Types Packs/Day [...] Coronavirus/COVID-19? No / Unsure 12/07/2022 2:30 PM TRANSFERRER documented as of this encounter Plan of Treatment Upcoming Encounters Date Type Department Care Team (Late st Contact Info) Description 04/06/2025 2:00 PM CDT Office Visit [facility] [address] [place] [phone] Malena Baker, DMD [address] [place] [address] documented as of this encounter Visit Diagnoses Not on filedocumented in this encounter
--- OUTSIDE RECORDS SUMMARY | 2024-10-14 02:41 | XMS_ITS | Encounter Summary ---
Author Organization [facility] Address [address] [place] [address] Care Team Providers Care Motor Polarizer Name Role Phone Unavailable Primary Care Provider Unavailabl e Encounter Details Date Type Department Care Team (Late st Contact Info) Description 10/14/2021 10:00 AM ALARM TECHNICIAN Office Visit [facility] [address] [place] [phone] Rosaura Randall, DMD [address] [place] [address] Social History Tobacco Use Types Packs/Day Years [...] have Coronavirus / COVID-19? No / Unsure 10/14/2021 9:04 AM PST documented as of this encounter Miscellaneous Notes * Dental Procedure Details - Rosaura Randall DMD - 10/14/2021 10:00 AM ALARM TECHNICIAN EXAM NOTE No past medical history on file. No past surgical history on file. Social History Tobacco Use Smoking status: Not on file Smokeless tobacco: Not on file Substance Use Topics Alcohol use: Not on file No family history on file. Current Outpatient Medications on File Prior to Visit Medication Sig Dispense Refill lovastatin (MEVACOR) 10 mg tablet lovastatin (MEVACOR) 10 mg tablet Take 10 mg by mouth 1 (one) time each day. rivaroxaban (Xarelto) 20 mg tablet rivaroxaban (XARELTO) 20 mg tablet Take by mouth 1 (one) time each day. No current facility-administered medications on file prior to visit. ..CCX - CONTINUING CARE EXAM: Pt presents for recall and CCX. Health history discussed with pt. Pt reports no pain or sensitivity with any teeth. Radiographs: updated at next CCX Performed head and neck exam with cancer screen complete. TMJ exam reveals: clicking, no pain on opening IOE reveals no carious lesions, poor prognosis #20 Pt understands risks of delaying or denying treatment. Candidate for: Orders Placed This Encounter Procedures PERIODIC ORAL EVALUATION - ESTABLISHED PATIENT SINGLE X-RAY INTRAORAL - PERIAPICAL EACH ADDITIONAL RADIOGRAPHIC IMAGE INTRAORAL - PERIAPICAL EACH ADDITIONAL RADIOGRAPHIC IMAGE INTRAORAL - PERIAPICAL EACH ADDITIONAL RADIOGRAPHIC IMAGE INTRAORAL - PERIAPICAL EACH ADDITIONAL RADIOGRAPHIC IMAGE INTRAORAL - PERIAPICAL EACH ADDITIONAL RADIOGRAPHIC IMAGE BITEWINGS - FOUR RADIOGRAPHIC IMAGES PROPHYLAXIS - ADULT documented in this encounter Plan of Treatment Upcoming Encounters Date Type Department Care Team (Late st Contact Info) Description 04/06/2025 2:00 PM CDT Office Visit [facility] [address] [place] [phone] Malena Baker DMD [address] [place] [address] documented as of this encounter Procedures Procedure Name Priority Date/Time Associated Diagnosis Comments SINGLE X-RAY Routine 10/14/2021 10:00 AM ALARM TECHNICIAN PROPHYLAXIS - ADULT Routine 10/14/2021 1 0:00 AM ALARM TECHNICIAN BITEWINGS - FOUR RADIOGRAPHIC IMAGES Routine 10/14/2021 10:00 AM ALARM TECHNICIAN ADDITIONAL X-RAY Routine 10/14/2021 10:0 0 AM ALARM TECHNICIAN ADDITIONAL X-RAY Routine 10/14/2021 10:0 0 AM ALARM TECHNICIAN ADDITIONAL X-RAY Routine 10/14/2021 10:0 0 AM ALARM TECHNICIAN ADDITIONAL X-RAY Routine 10/14/2021 10:0 0 AM ALARM TECHNICIAN ADDITIONAL X-RAY Routine 10/14/2021 10:0 0 AM ALARM TECHNICIAN PERIODIC ORAL EVALUATION - ESTABLISHED PATIENT Routine 10/14/2021 10:00 AM ALARM TECHNICIAN documented in this encounter Visit Diagnoses Not on filedocumented in this encounter
--- OUTSIDE RECORDS SUMMARY | 2024-10-14 02:41 | XMS_ITS | Encounter Summary ---
Author Organization [facility] Address [address] [place] [address] Care Team Providers Care Computer Game Designer Name Role Phone Unavailable Primary Care Provider Unavailabl e Encounter Details Date Type Department Care Team (Late st Contact Info) Description 09/11/2024 2:15 PM FILTER FILLER Office Visit [facility] [address] [place] [address] Malena Baker, DMD [address] [place] [address] Encounter for dental examination and cleaning without [...] Coronavirus/COVID-19? No / Unsure 09/11/2024 12:20 PM FILTER FILLER documented as of this encounter Progress Notes * Malena Oneil DMD - 09/11/2024 2:15 PM CST Procedure Details [id number] - PERIODIC ORAL EVALUATION - ESTABLISHED PATIENT EXAM NOTE Chief Condition: no complaint, wants prophylaxis Past Medical History: Diagnosis Date Cancer (CMS/HCC) [...] on file prior to visit. Radiographic Interpretation: Radiographs for today's visit were not taken due to ptn not due for x rays . Hard Tissue Exam: Caries exam: No decay Perio: Pocket Charting: Full mouth pocket charting was completed Radiographic studies shows no horizontal bone loss with no vertical bone loss Perio Diagnosis: Healthy periodontia Patient has light plaque and calculus build up Patient's oral hygiene is Good TMJ: TMJ Clicking: TMJ clicking WNL TMJ Pain: TMJ Pain WNL Oral cancer screening: Performed oral cancer screening with head, including face and mouth, neck & joint exam. After thorough examination, the patient was advised of the following: Prophylaxis and recall recommended. Treatment Plan: CCX Prophy Orders Placed This Encounter Procedures PERIODIC ORAL EVALUATION - ESTABLISHED PATIENT documented in this encounter Miscellaneous Notes * Dental Procedure Details - Malena Oneil DMD - 09/11/2024 2:15 PM CST EXAM NOTE Chief Condition: no complaint, wants prophylaxis Past Medical History: Diagnosis Date Cancer (CMS/HCC) [...] on file prior to visit. Radiographic Interpretation: Radiographs for today's visit were not taken due to ptn not due for x rays . Hard Tissue Exam: Caries exam: No decay Perio: Pocket Charting: Full mouth pocket charting was completed Radiographic studies shows no horizontal bone loss with no vertical bone loss Perio Diagnosis: Healthy periodontia Patient has light plaque and calculus build up Patient's oral hygiene is Good TMJ: TMJ Clicking: TMJ clicking WNL TMJ Pain: TMJ Pain WNL Oral cancer screening: Performed oral cancer screening with head, including face and mouth, neck & joint exam. After thorough examination, the patient was advised of the following: Prophylaxis and recall recommended. Treatment Plan: CCX Prophy Orders Placed This Encounter Procedures PERIODIC ORAL EVALUATION - ESTABLISHED PATIENT documented in this encounter Plan of Treatment Upcoming Encounters Date Type Department Care Team (Late st Contact Info) Description 04/06/2025 2:00 PM CDT Office Visit [facility] [address] [place] [phone] Malena Baker DMD [address] [place] [address] documented as of this encounter Procedures Procedure Name Priority Date/Time Associated Diagnosis Comments PERIODIC ORAL EVALUATION - ESTABLISHED PATIENT Routine 09/11/2024 2:15 PM FILTER FILLER Encounter for dental examination and cleaning without abnormal findings documented in this encounter Visit Diagnoses Diagnosis Encounter for dental examination and cleaning without abnormal findings- Primary documented in this encounter
--- OUTSIDE RECORDS SUMMARY | 2024-10-14 02:41 | XMS_ITS | CCD ---
Author Organization [facility] Address [address] [place] [address] Care Team Providers Care Preanalytics Team Lead Name Role Phone Unavailable Primary Care Provider Unavailabl e Allergies No known active allergies Medications lovastatin (MEVACOR) 10 mg tablet Take 10 mg by mouth 1 (one) time each day. Active Active Problems No known active problems Social History Tobacco Use Types Packs/Day Years Used Date Smoking Tobacco: Never Smokeless Tobacco: Never Tobacco Cessation:Counseling Given: Not Answered Alcohol Use Standard Drinks/Week Yes 2 (1 standard drink = 0.6 oz pure alcohol) Comments Unknown Sex and Gender Information Value Date Recorded Sex Assigned at Not on file Legal Sex Female 9:02 PM PDT Gender Identity Not on file Sexual Orientation Not on file Last Filed Vital Signs Vital Sign Reading Time Taken Comments Blood Pressure 125/70 04/14/2022 9:51 AM CDT Pulse 63 04/14/2022 9:51 AM CDT Temperature - - Respiratory Rate - - Oxygen Saturation - - Inhaled Oxygen Concentration - - Weight - - Height - - Body Mass Index - - Plan of Treatment Upcoming Encounters Date Type Department Care Team (Late st Contact Info) Description 04/06/2025 2:00 PM CDT Office Visit [facility] [address] [place] [phone] Malena Baker, ROQUE [address] [place] [address] Procedures Procedure Name Priority Date/Time Associated Diagnosis Comments PERIODIC ORAL EVALUATION - ESTABLISHED PATIENT Routine 09/11/2024 2:15 PM MANAGER EMPLOYEE RELATIONS Encounter for dental examination and cleaning without abnormal findings PROPHYLAXIS - ADULT Routine 02/26/2024 1 2:00 PM CDT Encounter for dental examination and cleaning without abnormal findings PANORAMIC RADIOGRAPHIC IMAGE Routine 09/23/2020 2:00 AM MANAGER EMPLOYEE RELATIONS INTRAORAL - COMPREHENSIVE SERIES OF RADIOGRAPHIC IMAGES Routine 09/23/2020 2:00 AM MANAGER EMPLOYEE RELATIONS from Last 3 Months or Most Recently Relevant to Health Maintenance
--- OUTSIDE RECORDS SUMMARY | 2024-10-14 02:41 | XMS_ITS | Referral Summary ---
Author Organization [facility] Address [address] [place] [address] Care Team Providers Care Conduit Reamer Operator Name Role Phone Unavailable Primary Care Provider Unavailabl e Encounters Date Type Department Care Team Description 09/11/2024 Travel 09/11/2024 2:15 PM GEOSCIENCE SPECIALIST Office Visit [facility] [address] [place] [phone] Malena Baker DMD Encounter for dental examination and cleaning without abnormal findings (Primary Dx) from Last 3 Months Allergies No known active allergies Medications lovastatin (MEVACOR) 10 mg tablet Take 10 mg by mouth 1 (one) time each day. Active Active Problems No known active problems Social History Tobacco Use Types Packs/Day Years Used Date Smoking Tobacco: Never Smokeless Tobacco: Never Tobacco Cessation:Counseling Given: Not Answered Alcohol Use Standard Drinks/Week Comments Yes 2 [...] Description 04/06/2025 2:00 PM CDT Office Visit [facility] [address] [place] [phone] Malena Baker, DMD [address] [place] [address] Procedures Procedure Name Priority Date/Time Associated Diagnosis Comments PERIODIC ORAL EVALUATION - ESTABLISHED PATIENT Routine 09/11/2024 2:15 PM GEOSCIENCE SPECIALIST Encounter for dental examination and cleaning without abnormal findings PROPHYLAXIS - ADULT Routine 02/26/2024 1 2:00 PM CDT Encounter for dental examination and cleaning without abnormal findings PANORAMIC RADIOGRAPHIC IMAGE Routine 09/23/2020 2:00 AM GEOSCIENCE SPECIALIST INTRAORAL - COMPREHENSIVE SERIES OF RADIOGRAPHIC IMAGES Routine 09/23/2020 2:00 AM GEOSCIENCE SPECIALIST from Last 3 Months or Most Recently Relevant to Health Maintenance Insurance [facility] [place] [address] [id number] [employer]
--- OUTSIDE RECORDS SUMMARY | 2024-10-14 02:41 | XMS_ITS | Encounter Summary ---
Author Organization [facility] Address [address] [place] [address] Care Team Providers Care Habilitation Worker Name Role Phone Unavailable Primary Care Provider Unavailabl e Encounter Details Date Type Department Care Team (Late st Contact Info) Description 04/14/2022 10:00 AM CDT Office Visit [facility] [address] [place] [address] Federico Ceja DDS Social History Tobacco Use Types Packs/Day Years [...] on file documented as of this encounter Miscellaneous Notes * Dental Procedure Details - Federico Ceja DDS - 04/14/2022 10:00 AM CDT EXAM NOTE Chief Condition: no complaint, wants prophylaxis HPI: No CC Past Medical History: Diagnosis Date Cancer (CMS/HCC) Diverticulitis of colon History of radiation therapy History reviewed. No pertinent surgical history. Social History Tobacco Use Smoking status: Never [...] Occlusion: Class I molar Perio: Pocket Charting: Spot probing completed and noted Radiographic studies shows no horizontal bone loss with no vertical bone loss Perio Diagnosis: Gingivitis, 30-39% bleeding on probing Patient has light plaque and calculus build up Patient's oral hygiene is Good TMJ: TMJ Clicking: TMJ clicking WNL TMJ Pain: TMJ Pain WNL Oral cancer screening: Performed oral cancer screening with head, including face and mouth, neck & joint exam. No findings Review of Systems: All other systems negative for symptoms after thorough clinical and radiographicexamination After thorough examination, the patient was advised of the following: Prophylaxis and recall recommended. Prognosis: favorable Treatment Plan: CCX Prophy Orders Placed This Encounter Procedures PERIODIC ORAL EVALUATION - ESTABLISHED PATIENT PROPHYLAXIS - ADULT TOPICAL APPLICATION OF FLUORIDE VARNISH ORAL HYGIENE INSTRUCTIONS documented in this encounter Plan of Treatment Upcoming Encounters Date Type Department Care Team (Late st Contact Info) Description 04/06/2025 2:00 PM CDT Office Visit [facility] [address] [place] [phone] Malena Baker, ROQUE [address] [place] [address] documented as of this encounter Procedures Procedure Name Priority Date/Time Associated Diagnosis Comments PERIODIC ORAL EVALUATION - ESTABLISHED PATIENT Routine 04/14/2022 10:00 AM CDT documented in this encounter Visit Diagnoses Not on filedocumented in this encounter
--- OUTSIDE RECORDS SUMMARY | 2024-10-14 02:41 | XMS_ITS | Encounter Summary ---
Author Organization [facility] Address [address] [place] [address] Care Team Providers Care Horticultural Specialty Grower Field Name Role Phone Unavailable Primary Care Provider Unavailabl e Prior Encounters Date Type Department Care Team Description 09/11/2024 Travel 09/11/2024 2:15 PM PRODUCTION SUPPORT SPECIALIST Office Visit [facility] [address] [place] [phone] Malena Baker DMD Encounter for dental examination and cleaning without abnormal findings (Primary Dx) 02/26/2024 Travel 02/26/2024 12:00 PM CDT Office Visit [facility] [address] [place] [phone] Malena Baker DMD Encounter for dental examination and cleaning without abnormal findings (Primary Dx) 12/07/2022 Travel 12/07/2022 3:15 PM PRODUCTION SUPPORT SPECIALIST Office Visit [facility] [address] [place] [phone] Javon Braxton DDS 04/14/2022 10:00 AM CDT Office Visit [facility] [address] [place] [address] Federico Ceja DDS 04/14/2022 10:00 AM CDT Office Visit [facility] [address] [place] [address] 10/14/2021 Travel 10/14/2021 10:00 AM PRODUCTION SUPPORT SPECIALIST Office Visit [facility] [address] [place] [phone] Rosaura Randall, DMD 04/01/2021 Travel 04/01/2021 11:00 AM CDT Office Visit [facility] [address] [place] [phone] Rosaura Randall, DMD 10/27/2019 Converted CPS Chart Documents [facility] [address] [place] [address] <No scans attached> 10/27/2019 Converted 13x Documents [facility] [address] [place] [phone] <No scans attached> Last Filed Vital Signs Vital Sign Reading [...] Description 04/06/2025 2:00 PM CDT Office Visit [facility] [address] [place] [address] Malena Baker, DMD [address] [place] [address] Procedures Procedure Name Priority Date/Time Associated Diagnosis Comments PERIODIC ORAL EVALUATION - ESTABLISHED PATIENT Routine 09/11/2024 2:15 PM PRODUCTION SUPPORT SPECIALIST Encounter for dental examination and cleaning without abnormal findings PLAN VISIT FEE Routine 02/26/2024 12:00 PM CDT ORAL HYGIENE INSTRUCTIONS Routine 2023 12:00 PM CDT PERIODIC ORAL EVALUATION - ESTABLISHED PATIENT Routine 02/26/2024 12:00 PM CDT Encounter for dental examination and cleaning without abnormal findings PROPHYLAXIS - ADULT Routine 02/26/2024 1 2:00 PM CDT Encounter for dental examination and cleaning without abnormal findings BITEWINGS - FOUR RADIOGRAPHIC IMAGES Routine 02/26/2024 12:00 PM CDT TOPICAL APPLICATION OF FLUORIDE VARNISH Routine 02/26/2024 12:00 PM CDT ORAL HYGIENE INSTRUCTIONS Routine 2022 3:15 PM PRODUCTION SUPPORT SPECIALIST PROPHYLAXIS - ADULT Routine 12/07/2022 3 :15 PM PRODUCTION SUPPORT SPECIALIST BITEWINGS - FOUR RADIOGRAPHIC IMAGES Routine 12/07/2022 3:15 PM PRODUCTION SUPPORT SPECIALIST COMPREHENSIVE ORAL EVALUATION - NEW OR ESTABLISHED PATIENT Routine 12/07/2022 3:15 PM PRODUCTION SUPPORT SPECIALIST TOPICAL APPLICATION OF FLUORIDE VARNISH Routine 04/14/2022 10:00 AM CDT ORAL HYGIENE INSTRUCTIONS Routine 2021 10:00 AM CDT PROPHYLAXIS - ADULT Routine 04/14/2022 1 0:00 AM CDT PERIODIC ORAL EVALUATION - ESTABLISHED PATIENT Routine 04/14/2022 10:00 AM CDT 20 ROOT CANAL Routine 04/14/2022 12:00 AM CDT 20 PFM CROWN Routine 04/14/2022 12:00 AM CDT PROPHYLAXIS - ADULT Routine 10/14/2021 1 0:00 AM PRODUCTION SUPPORT SPECIALIST BITEWINGS - FOUR RADIOGRAPHIC IMAGES Routine 10/14/2021 10:00 AM PRODUCTION SUPPORT SPECIALIST ADDITIONAL X-RAY Routine 10/14/2021 10:0 0 AM PRODUCTION SUPPORT SPECIALIST ADDITIONAL X-RAY Routine 10/14/2021 10:0 0 AM PRODUCTION SUPPORT SPECIALIST ADDITIONAL X-RAY Routine 10/14/2021 10:0 0 AM PRODUCTION SUPPORT SPECIALIST ADDITIONAL X-RAY Routine 10/14/2021 10:0 0 AM PRODUCTION SUPPORT SPECIALIST ADDITIONAL X-RAY Routine 10/14/2021 10:0 0 AM PRODUCTION SUPPORT SPECIALIST SINGLE X-RAY Routine 10/14/2021 10:00 AM PRODUCTION SUPPORT SPECIALIST PERIODIC ORAL EVALUATION - ESTABLISHED PATIENT Routine 10/14/2021 10:00 AM PRODUCTION SUPPORT SPECIALIST OFFICE VISIT FOR OBSERVATION (DURING REGULARLY SCHEDULED HOURS) - NO OTHER SERVICES PERFORMED Routine 04/01/2021 11:00 AM CDT PERIODIC ORAL EVALUATION - ESTABLISHED PATIENT Routine 04/01/2021 11:00 AM CDT ORAL HYGIENE INSTRUCTIONS Routine 2020 11:00 AM CDT TOPICAL APPLICATION OF FLUORIDE VARNISH Routine 04/01/2021 11:00 AM CDT PROPHYLAXIS - ADULT Routine 04/01/2021 1 1:00 AM CDT OFFICE VISIT FOR OBSERVATION (DURING REGULARLY SCHEDULED HOURS) - NO OTHER SERVICES PERFORMED Routine 12/17/2020 2:00 AM PRODUCTION SUPPORT SPECIALIST 18 RECEMENT CROWN Routine 11/18/2020 2:0 0 AM PRODUCTION SUPPORT SPECIALIST 18 LIMITED ORAL EVALUATION - PROBLEM FOCUSED Routine 11/18/2020 2:00 AM PRODUCTION SUPPORT SPECIALIST ADDITIONAL X-RAY Routine 11/18/2020 2:00 AM PRODUCTION SUPPORT SPECIALIST SINGLE X-RAY Routine 11/18/2020 2:00 AM PRODUCTION SUPPORT SPECIALIST OFFICE VISIT FOR OBSERVATION (DURING REGULARLY SCHEDULED HOURS) - NO OTHER SERVICES PERFORMED Routine 10/05/2020 2:00 AM PRODUCTION SUPPORT SPECIALIST 13 MOD AMALGAM 3 SURFACE Routine 020 2:00 AM PRODUCTION SUPPORT SPECIALIST 30 MO AMALGAM 2 SURFACE Routine 09/23/20 20 2:00 AM PRODUCTION SUPPORT SPECIALIST 29 DO AMALGAM 2 SURFACE Routine 09/23/20 20 2:00 AM PRODUCTION SUPPORT SPECIALIST 15 LO AMALGAM 2 SURFACE Routine 09/23/20 20 2:00 AM PRODUCTION SUPPORT SPECIALIST 31 O AMALGAM 1 SURFACE Routine 0 2:00 AM PRODUCTION SUPPORT SPECIALIST 19 CERECFIRED CROWNPOST Routine 09/23/20 20 2:00 AM PRODUCTION SUPPORT SPECIALIST 18 CERECFIRED CROWNPOST Routine 09/23/20 20 2:00 AM PRODUCTION SUPPORT SPECIALIST 14 CERECFIRED CROWNPOST Routine 09/23/20 20 2:00 AM PRODUCTION SUPPORT SPECIALIST 32 EXTRACTION, ERUPTED TOOTH OR EXPOSED ROOT (ELEVATION AND/OR FORCEPS REMOVAL) Routine 09/23/2020 2:00 AM PRODUCTION SUPPORT SPECIALIST 17 EXTRACTION, ERUPTED TOOTH OR EXPOSED ROOT (ELEVATION AND/OR FORCEPS REMOVAL) Routine 09/23/2020 2:00 AM PRODUCTION SUPPORT SPECIALIST 16 EXTRACTION, ERUPTED TOOTH OR EXPOSED ROOT (ELEVATION AND/OR FORCEPS REMOVAL) Routine 09/23/2020 2:00 AM PRODUCTION SUPPORT SPECIALIST 2 EXTRACTION, ERUPTED TOOTH OR EXPOSED ROOT (ELEVATION AND/OR FORCEPS REMOVAL) Routine 09/23/2020 2:00 AM PRODUCTION SUPPORT SPECIALIST ORAL HYGIENE INSTRUCTIONS Routine 2019 2:00 AM PRODUCTION SUPPORT SPECIALIST TOPICAL APPLICATION OF FLUORIDE VARNISH Routine 09/23/2020 2:00 AM PRODUCTION SUPPORT SPECIALIST PROPHYLAXIS - ADULT Routine 09/23/2020 2 :00 AM PRODUCTION SUPPORT SPECIALIST COMPREHENSIVE ORAL EVALUATION - NEW OR ESTABLISHED PATIENT Routine 09/23/2020 2:00 AM PRODUCTION SUPPORT SPECIALIST PANORAMIC RADIOGRAPHIC IMAGE Routine 09/23/2020 2:00 AM PRODUCTION SUPPORT SPECIALIST INTRAORAL - COMPREHENSIVE SERIES OF RADIOGRAPHIC IMAGES Routine 09/23/2020 2:00 AM PRODUCTION SUPPORT SPECIALIST INTRAORAL PHOTO Routine 09/23/2020 2:00 AM PRODUCTION SUPPORT SPECIALIST INTRAORAL PHOTO Routine 09/23/2020 2:00 AM PRODUCTION SUPPORT SPECIALIST INTRAORAL PHOTO Routine 09/23/2020 2:00 AM PRODUCTION SUPPORT SPECIALIST INTRAORAL PHOTO Routine 09/23/2020 2:00 AM PRODUCTION SUPPORT SPECIALIST Visit Diagnoses Diagnosis Start Date Encounter for dental examination and cleaning without abnormal findings 02/26/2024 Encounter for dental examination and cleaning without abnormal findings 09/11/[address] [place] [id number] [employer] [place] [place] [id number]
--- OUTSIDE RECORDS SUMMARY | 2024-10-14 02:41 | XMS_ITS | Clinical Summary ---
Author Organization [facility] Address [address] [place] [address] Care Team Providers Care Ecologist Technician Name Role Phone Unavailable Primary Care Provider Unavailabl e Allergies No known active allergies Medications lovastatin (MEVACOR) 10 mg tablet Take 10 mg by mouth 1 (one) time each day. Active Active Problems No known active problems Encounters Date Type Department Care Team Description 09/11/2024 2:15 PM CASUALTY UNDERWRITER Office Visit [facility] [address] [place] [address] Malena Baker, ROQUE Encounter for dental examination and cleaning without abnormal findings (Primary Dx) 09/11/2024 Travel from Last 3 Months Social History Tobacco Use Types Packs/Day Years [...] Description 04/06/2025 2:00 PM CDT Office Visit [facility] [address] [place] [address] Malena Baker, DMD [address] [place] [address] Health Maintenance Due Date Last Done Comments Dental X-Ray: Full Mouth 02/24/2024 02/22/2021, 09/07 Dental X-Ray: Panoramic 02/24/2024 02/22/2021, 09/23 Dental Prophylaxis 08/29/2024 02/26/2024, 0 12/07/2022, 04/14/2022, Additional history exists Dental X-Ray: Bitewings 08/29/2024 02/26/2024 Dental Oral Exam 03/13/2025 09/11/2024, , 12/07/2022, Additional history exists Procedures Procedure Name Priority Date/Time Associated Diagnosis Comments PERIODIC ORAL EVALUATION - ESTABLISHED PATIENT Routine 09/11/2024 2:15 PM CASUALTY UNDERWRITER Encounter for dental examination and cleaning without abnormal findings PROPHYLAXIS - ADULT Routine 02/26/2024 1 2:00 PM CDT Encounter for dental examination and cleaning without abnormal findings PANORAMIC RADIOGRAPHIC IMAGE Routine 09/23/2020 2:00 AM CASUALTY UNDERWRITER INTRAORAL - COMPREHENSIVE SERIES OF RADIOGRAPHIC IMAGES Routine 09/23/2020 2:00 AM CASUALTY UNDERWRITER from Last 3 Months or Most Recently Relevant to Health Maintenance Insurance [facility] [place] [address] [employer] HMO Member Subscriber Plan / Payer (Ef fective 2002-Present) Name:Tita Wdadell Relation to Subscriber:Spouse Name:CLAY WADDELL Date of :1946 Address: [facility] [place] [address] [address] Payer ID:[id number] Type:Not on file Address: [place] [id number] [place] [address]
--- OUTSIDE RECORDS SUMMARY | 2024-10-14 02:41 | XMS_ITS | Encounter Summary ---
Author Organization [facility] Address [address] [place] [address] Care Team Providers Care Sales And Marketing Intern Name Role Phone Unavailable Primary Care Provider Unavailabl e Encounter Details Date Type Department Care Team (Latest Contact Info) Description 10/14/2021 Travel Social History Tobacco Use Types Packs/Day [...] AM PST documented as of this encounter Plan of Treatment Upcoming Encounters Date Type Department Care Team (Late st Contact Info) Description 04/06/2025 2:00 PM CDT Office Visit [facility] [address] [place] [address] Malena Baker, DMD [address] [place] [address] documented as of this encounter Visit Diagnoses Not on filedocumented in this encounter
--- OUTSIDE RECORDS SUMMARY | 2024-10-14 02:42 | XMS_ITS | Continuity of Care Document ---
Author Organization [facility] Address [address] [place] [address] [address] [place] [address] Phone Care Team Providers Care Singer And Unloader Name Role Phone Bryant OD, Jackson Unavailable Unavailable Advance Directives Directive Yes / No Effective Date File Name No Information Encounters Encounter Description Practice Location Reason(s) For Visit Diagnoses Date Provider Providers Copied on Encounter [facility], [id number] [place] [address] [address], [place], [place], [id number], [place] tel:[phone] [facility] No Information Dec- 6-200 4 Bryant OD Jackson. [address] , [address], [place], [address], [place]. tel:[phone] Family History Family Member Type Diagnosis Age At Onset No Information Payers Payer name Insurance type Covered libertarian ID Authoriza tion(s) No Information Social History [...]
--- OUTSIDE RECORDS SUMMARY | 2024-10-14 02:42 | XMS_ITS | Encounter Summary ---
Author Organization [facility] Address [address] [place] [address] Care Team Providers Care Grievance And Appeals Specialist Name Role Phone Unavailable Primary Care Provider Unavailabl e Encounter Details Date Type Department Care Team (Late st Contact Info) Description 10/27/2019 Converted 13x Documents [facility] [address] [place] [address] Social History Tobacco Use Types [...] Description 04/06/2025 2:00 PM CDT Office Visit [facility] [address] [place] [phone] Malena Baker, DMD [address] [place], [place] [phone] documented as of this encounter Visit Diagnoses Not on filedocumented in this encounter
== END 2024-10-08 10:30 | disposition home or self-care (01) ==
LOC: ANHSURGERY 08:27 → ANH3MEDSUR 15:47
PROVIDERS: Physician Assistant Surgical; PCP Family Medicine; Visit Provider Orthopaedic Surgery
PROC: (CPT 27447; principal; 2024-10-07 10:30)
DX: M17.11 Unilateral primary osteoarthritis, right knee (principal); E78.2 Mixed hyperlipidemia; G47.10 Hypersomnia, unspecified; G47.33 Obstructive sleep apnea (adult) (pediatric); I47.19 Other supraventricular tachycardia; R00.2 Palpitations; Z79.891 Long term (current) use of opiate analgesic; Z79.52 Long term (current) use of systemic steroids; Z79.01 Long term (current) use of anticoagulants; Z98.890 Other specified postprocedural states; Z98.51 Tubal ligation status; Z85.3 Personal history of malignant neoplasm of breast; Z86.718 Personal history of other venous thrombosis and embolism; Z80.0 Family history of malignant neoplasm of digestive organs; Z80.3 Family history of malignant neoplasm of breast; Z80.42 Family history of malignant neoplasm of prostate; Z80.52 Family history of malignant neoplasm of bladder; Z82.49 Family history of ischemic heart disease and other diseases of the circulatory system
CPT/HCPCS: 27447; 36415; 73560; 80048; 85025; 86850; 86900; 86901; 97110; 97161; 97165; 97530; 97535; A9270; C1713; C1776; J0171; J0690; J1100; J1885; J2003; J2270; J2405; J2704; J2795; J3010; J7030; J7120; J7512

== ENCOUNTER 2024-10-28 14:15 | Outpatient (CLI) | payer MEDICARE, BC, SELFPAY ==
--- NOTE | ~2024-10-28 | XR_ITS ---
HISTORY: Z96.651 - Presence of right artificial knee joint COMPARISON: 10/07/2024 TECHNIQUE: 3 views of the right knee were performed. FINDINGS: Right total knee prosthetic in good position. No periprosthetic fracture. No suprapatellar joint effusion is identified. The infrapatellar joint space is clear. IMPRESSION: As above. Reviewed, dictated and finalized at location A. CAL CARE EVALUATION SPECIALIST IMPRESSION: As above.
--- OUTSIDE RECORDS SUMMARY | 2024-10-30 18:46 | XMS_ITS | CCD ---
Author Organization [facility] Address [address] [place] [address] Care Team Providers Care Circus Laborer Name Role Phone Unavailable Primary Care Provider [...] Description 04/06/2025 2:00 PM CDT Office Visit [facility] [address] [place] [address] Malena Baker, ROQUE [address] [place] [address] Procedures Procedure Name Priority Date/Time Associated Diagnosis Comments PERIODIC ORAL EVALUATION - ESTABLISHED PATIENT Routine 09/11/2024 2:15 PM NAUTICAL INSTRUMENT MECHANIC Encounter for dental examination and cleaning without abnormal findings PROPHYLAXIS - ADULT Routine 02/26/2024 1 2:00 PM CDT Encounter for dental examination and cleaning without abnormal findings PANORAMIC RADIOGRAPHIC IMAGE Routine 09/23/2020 2:00 AM NAUTICAL INSTRUMENT MECHANIC INTRAORAL - COMPREHENSIVE SERIES OF RADIOGRAPHIC IMAGES Routine 09/23/2020 2:00 AM NAUTICAL INSTRUMENT MECHANIC from Last 3 Months or Most Recently Relevant to Health Maintenance
--- OUTSIDE RECORDS SUMMARY | 2024-10-30 18:46 | XMS_ITS | Encounter Summary ---
Author Organization [facility] Address [address] [place] [address]. [place], [place] [address] [place] [address] Care Team Providers Care Pitch Flaker Name Role Phone Mark De Leon MD Primary Care Provider [phone] Hamlet Hernandez MD Primary Care Provider [phone] Encounter Details Date Type Department Care Team (Late st Contact Info) Description 06/15/[address] [facility] [address] [place] [address] Mark De Leon MD [address] [facility] [address] [place] [address] Social History Tobacco Use Types Packs/Day Years Used Date Smoking Tobacco: Never Smokeless Tobacco: Never Alcohol Use Standard Drinks/Week Comments Yes 0 (1 standard drink = 0.6 oz pur e alcohol) 3 x week Comments Unknown Sex and Gender Information Value Date Recorded Sex Assigned at Not on file Legal Sex Female 8:02 PM CDT Gender Identity Not on file Sexual Orientation Not on file COVID-19 Exposure Response Date Recorded In the last month, have you been in contact with someone who was confirmed or suspected to have Coronavirus / COVID-19? No / Unsure 06/18/2020 11:30 AM CDT documented as of this encounter Plan of Treatment Not on file documented as of this encounter Results * PRE-SURGICAL/PRE-PROCEDURE CORONAVIRUS (COVID 19) (06/18/2020 11:32 AM CDT) CORONAVIRUS SARS COV 2 PCR (RESP) NOT DETECTED NOT DETECTED 06/19/2020 4:01 PM CDT [facility] Comment: A Not Detected (negative) test result for this test means that SARS- CoV-2 RNA was not present in the specimen above the limit of detection. A negative result does not rule out the possibility of COVID-19 and should not be used as the sole basis for treatment or patient management decisions. ??If COVID-19 is still suspected, based on exposure history together with other clinical findings, re-testing should be considered in consultation with public health authorities. Laboratory test results should always be considered in the context of clinical observations and epidemiological data in making a final diagnosis and patient management decisions. Please review the Fact Sheets and FDA authorized labeling available for health care providers and patients using the following websites: https://www.[employer]/home/Covid-19/HCP/NAAT/fact-sheet2 https://www.[employer]/home/Covid-19/Patients/NAAT/ fact-sheet2 This test has been authorized by the FDA under an Emergency Use Authorization (EUA) for use by authorized laboratories. Due to the current public health emergency, [facility] is receiving a high volume of samples from a wide variety of swabs and media for COVID-19 testing. In order to serve patients during this public health crisis, samples from appropriate clinical sources are being tested. Negative test results derived from specimens received in non-commercially manufactured viral collection and transport media, or in media and sample collection kits not yet authorized by FDA for COVID-19 testing should be cautiously evaluated and the patient potentially subjected to extra precautions such as additional clinical monitoring, including collection of an additional specimen. Methodology: ??Nucleic Acid Amplification Test (NAAT) includes PCR or TMA Additional information about COVID-19 can be found at the [facility] website: www.[employer]/Covid19. Test performed at [facility] [address] [place], [place] ??[address] Director: BABS SONG DO,MPH FIRST TEST UNKNOWN 06/18/2020 3:40 PM CDT [facility] EMPLOYED IN HEALTHCARE UNKNOWN 06/18/2020 3:40 PM CDT [facility] SYMPTOMATIC DEFINED BY CDC NO 06/18/2020 3:40 PM CDT [facility] DATE OF SYMPTOM ONSET NON-APPLICABLE 06/18/2020 3:40 PM CDT [facility] HOSPITALIZATION STATUS NO 06/18/2020 3:40 PM CDT [facility] PATIENT IN ICU NO 06/18/2020 3:40 PM CDT [facility] RESIDENT OF [facility] CARE NO 06/18/2020 3:40 PM CDT [facility] NO 06/18/2020 3:40 PM CDT [facility] PATIENT'S RACE WHITE OR 06/18/2020 3:40 PM CDT [facility] ETHNICITY NONHISPANIC 06/18/2020 3:40 PM CDT [facility] SOURCE (QST) NASOPHARYNGEAL SWAB 06/18/2020 11:30 AM CDT [facility] NASOPHARYNGEAL SWAB / Unknown 06/18/2020 11:32 AM CDT us Mark De Leon MD MICROBIOLOGY - GENERAL ORDERAB LES Final Result [facility] [address] [place] [address], [facility] [id number] [place] [address], documented in this encounter Visit Diagnoses Diagnosis Preop testing- Primary Preoperative examination, unspecified documented in this encounter Additional Health Concerns Infection Onset Date Last Indicated Resolved Time COVID-19 Rule Out 06/18/2020 06/18/2020 06/19/2020 4:01 PM CDT documented as of this encounter Care Teams Pitch Flaker Relationship Specialty [place] [address] [place] [address] PCP - General OPHTHALMOLOGY 06/16/20 06/20/20 Hamlet Hernandez MD [address] [place] [address] PCP - General FAMILY PRACTICE 06/21/20 documented as of this encounter
--- OUTSIDE RECORDS SUMMARY | 2024-10-30 18:46 | XMS_ITS | Referral Summary ---
Author Organization [facility] Address [address] [place] [address] Care Team Providers Care Warehouse Shift Supervisor Name Role Phone Unavailable Primary Care Provider Unavailabl e Encounters Date Type Department Care Team Description 09/11/2024 Travel 09/11/2024 2:15 PM BUTANE COMPRESSOR OPERATOR Office Visit [facility] [address] [place] [address] Malena Baker DMD Encounter for dental [...] Office Visit [facility] [address] [place] [phone] Malena Baker, DMD [address] [place] [address] Procedures Procedure Name Priority Date/Time Associated Diagnosis Comments PERIODIC ORAL EVALUATION - ESTABLISHED PATIENT Routine 09/11/2024 2:15 PM BUTANE COMPRESSOR OPERATOR Encounter for dental examination and cleaning without abnormal findings PROPHYLAXIS - ADULT Routine 02/26/2024 1 2:00 PM CDT Encounter for dental examination and cleaning without abnormal findings PANORAMIC RADIOGRAPHIC IMAGE Routine 09/23/2020 2:00 AM BUTANE COMPRESSOR OPERATOR INTRAORAL - COMPREHENSIVE SERIES OF RADIOGRAPHIC IMAGES Routine 09/23/2020 2:00 AM BUTANE COMPRESSOR OPERATOR from Last 3 Months or Most Recently Relevant to Health Maintenance Insurance [facility] [place] [address] [id number] [employer] HMO
--- OUTSIDE RECORDS SUMMARY | 2024-10-30 18:46 | XMS_ITS ---
Author Organization [facility] [place] [address] [place] [address] Care Team Providers Care Bulk Sugar Handler Name Role Phone Unavailable Unavailable Unavailable Surgery Details Not on file Complications Check Surgery Details section. Procedure Estimated Blood Loss Check Surgery Details section. Procedure Findings Check Surgery Details section. Procedure Specimens Taken Check Surgery Details section.
--- OUTSIDE RECORDS SUMMARY | 2024-10-30 18:46 | XMS_ITS | Clinical Summary ---
Author Organization [facility] Address [address] [place] [address] Care Team Providers Care Trader Name Role Phone Unavailable Primary Care Provider Unavailabl e Allergies No known active allergies Medications lovastatin (MEVACOR) 10 mg tablet Take 10 mg by mouth 1 (one) time each day. Active Active Problems No known active problems Encounters Date Type Department Care Team Description 09/11/2024 2:15 PM BUGGY RUNNER Office Visit [facility] [address] [place] [address] Malena Baker, ROQUE Encounter for [...] Description 04/06/2025 2:00 PM CDT Office Visit [facility] [address] [place] [address] Malena Baker, DMD [address] [place] [address] Health Maintenance Due Date Last Done Comments Dental X-Ray: Full Mouth 02/24/2024 02/22/2021, 09/07 Dental X-Ray: Panoramic 02/24/2024 02/22/2021, 09/23 Dental Prophylaxis 08/29/2024 02/26/2024, 0 12/07/2022, 04/14/2022, Additional history exists Dental X-Ray: Bitewings 08/29/2024 02/26/2024 Dental Oral Exam 03/13/2025 09/11/2024, , 12/07/2022, Additional history exists Meningococcal B Vaccine Aged Out No l onger eligible based on patient's age to complete this topic Procedures Procedure Name Priority Date/Time Associated Diagnosis Comments PERIODIC ORAL EVALUATION - ESTABLISHED PATIENT Routine 09/11/2024 2:15 PM BUGGY RUNNER Encounter for dental examination and cleaning without abnormal findings PROPHYLAXIS - ADULT Routine 02/26/2024 1 2:00 PM CDT Encounter for dental examination and cleaning without abnormal findings PANORAMIC RADIOGRAPHIC IMAGE Routine 09/23/2020 2:00 AM BUGGY RUNNER INTRAORAL - COMPREHENSIVE SERIES OF RADIOGRAPHIC IMAGES Routine 09/23/2020 2:00 AM BUGGY RUNNER from Last 3 Months or Most Recently Relevant to Health Maintenance Insurance [employer] HMO
--- OUTSIDE RECORDS SUMMARY | 2024-10-30 18:46 | XMS_ITS | Encounter Summary ---
Author Organization [facility] [place] [address] [place] [address] Care Team Providers Care Hvac Technician Residential Name Role Phone Unavailable Primary Care Provider Unavailabl e Prior Encounters Date Type Department Care Team Description 09/11/2024 Travel 09/11/2024 2:15 PM OPERATING ROOM AIDE Office Visit [facility] [address] [place] [phone] Malena Baker DMD Encounter for dental examination and cleaning without abnormal findings (Primary Dx) 02/26/2024 Travel 02/26/2024 12:00 PM CDT Office Visit [facility] [address] [place] [phone] Malena Baker DMD Encounter for dental examination and cleaning without abnormal findings (Primary Dx) 12/07/2022 Travel 12/07/2022 3:15 PM OPERATING ROOM AIDE Office Visit [facility] [address] [place] [phone] Javon Braxton DDS 04/14/2022 10:00 AM CDT Office Visit [facility] [address] [place] [address] Federico Ceja DDS 04/14/2022 10:00 AM CDT Office Visit [facility] [address] [place] [address] 10/14/2021 Travel 10/14/2021 10:00 AM OPERATING ROOM AIDE Office Visit [facility] [address] [place] [phone] Rosaura Randall, DMD 04/01/2021 Travel 04/01/2021 11:00 AM CDT Office Visit [facility] [address] [place] [phone] Rosaura Randall, DMD 10/27/2019 Converted CPS Chart Documents [facility] [address] [place] [address] <No scans attached> 10/27/2019 Converted 13x Documents [facility] [address] [place] [phone] <No scans attached> Last Filed Vital Signs [...] Description 04/06/2025 2:00 PM CDT Office Visit [facility] [address] [place] [address] Malena Baker, DMD [address] [place] [address] Procedures Procedure Name Priority Date/Time Associated Diagnosis Comments PERIODIC ORAL EVALUATION - ESTABLISHED PATIENT Routine 09/11/2024 2:15 PM OPERATING ROOM AIDE Encounter for dental examination and cleaning without [...] ORAL HYGIENE INSTRUCTIONS Routine 2022 3:15 PM OPERATING ROOM AIDE PROPHYLAXIS - ADULT Routine 12/07/2022 3 :15 PM OPERATING ROOM AIDE BITEWINGS - FOUR RADIOGRAPHIC IMAGES Routine 12/07/2022 3:15 PM OPERATING ROOM AIDE COMPREHENSIVE ORAL EVALUATION - NEW OR ESTABLISHED PATIENT Routine 12/07/2022 3:15 PM OPERATING ROOM AIDE TOPICAL APPLICATION OF FLUORIDE VARNISH Routine 04/14/2022 10:00 AM CDT ORAL HYGIENE INSTRUCTIONS Routine 2021 10:00 AM CDT PROPHYLAXIS - ADULT Routine 04/14/2022 1 0:00 AM CDT PERIODIC ORAL EVALUATION - ESTABLISHED PATIENT Routine 04/14/2022 10:00 AM CDT 20 ROOT CANAL Routine 04/14/2022 12:00 AM CDT 20 PFM CROWN Routine 04/14/2022 12:00 AM CDT PROPHYLAXIS - ADULT Routine 10/14/2021 1 0:00 AM OPERATING ROOM AIDE BITEWINGS - FOUR RADIOGRAPHIC IMAGES Routine 10/14/2021 10:00 AM OPERATING ROOM AIDE ADDITIONAL X-RAY Routine 10/14/2021 10:0 0 AM OPERATING ROOM AIDE ADDITIONAL X-RAY Routine 10/14/2021 10:0 0 AM OPERATING ROOM AIDE ADDITIONAL X-RAY Routine 10/14/2021 10:0 0 AM OPERATING ROOM AIDE ADDITIONAL X-RAY Routine 10/14/2021 10:0 0 AM OPERATING ROOM AIDE ADDITIONAL X-RAY Routine 10/14/2021 10:0 0 AM OPERATING ROOM AIDE SINGLE X-RAY Routine 10/14/2021 10:00 AM OPERATING ROOM AIDE PERIODIC ORAL EVALUATION - ESTABLISHED PATIENT Routine 10/14/2021 10:00 AM OPERATING ROOM AIDE OFFICE VISIT FOR OBSERVATION (DURING REGULARLY SCHEDULED [...] OTHER SERVICES PERFORMED Routine 12/17/2020 2:00 AM OPERATING ROOM AIDE 18 RECEMENT CROWN Routine 11/18/2020 2:0 0 AM OPERATING ROOM AIDE 18 LIMITED ORAL EVALUATION - PROBLEM FOCUSED Routine 11/18/2020 2:00 AM OPERATING ROOM AIDE ADDITIONAL X-RAY Routine 11/18/2020 2:00 AM OPERATING ROOM AIDE SINGLE X-RAY Routine 11/18/2020 2:00 AM OPERATING ROOM AIDE OFFICE VISIT FOR OBSERVATION (DURING REGULARLY SCHEDULED HOURS) - NO OTHER SERVICES PERFORMED Routine 10/05/2020 2:00 AM OPERATING ROOM AIDE 13 MOD AMALGAM 3 SURFACE Routine 020 2:00 AM OPERATING ROOM AIDE 30 MO AMALGAM 2 SURFACE Routine 09/23/20 20 2:00 AM OPERATING ROOM AIDE 29 DO AMALGAM 2 SURFACE Routine 09/23/20 20 2:00 AM OPERATING ROOM AIDE 15 LO AMALGAM 2 SURFACE Routine 09/23/20 20 2:00 AM OPERATING ROOM AIDE 31 O AMALGAM 1 SURFACE Routine 0 2:00 AM OPERATING ROOM AIDE 19 CERECFIRED CROWNPOST Routine 09/23/20 20 2:00 AM OPERATING ROOM AIDE 18 CERECFIRED CROWNPOST Routine 09/23/20 20 2:00 AM OPERATING ROOM AIDE 14 CERECFIRED CROWNPOST Routine 09/23/20 20 2:00 AM OPERATING ROOM AIDE 32 EXTRACTION, ERUPTED TOOTH OR EXPOSED ROOT (ELEVATION AND/OR FORCEPS REMOVAL) Routine 09/23/2020 2:00 AM OPERATING ROOM AIDE 17 EXTRACTION, ERUPTED TOOTH OR EXPOSED ROOT (ELEVATION AND/OR FORCEPS REMOVAL) Routine 09/23/2020 2:00 AM OPERATING ROOM AIDE 16 EXTRACTION, ERUPTED TOOTH OR EXPOSED ROOT (ELEVATION AND/OR FORCEPS REMOVAL) Routine 09/23/2020 2:00 AM OPERATING ROOM AIDE 2 EXTRACTION, ERUPTED TOOTH OR EXPOSED ROOT (ELEVATION AND/OR FORCEPS REMOVAL) Routine 09/23/2020 2:00 AM OPERATING ROOM AIDE ORAL HYGIENE INSTRUCTIONS Routine 2019 2:00 AM OPERATING ROOM AIDE TOPICAL APPLICATION OF FLUORIDE VARNISH Routine 09/23/2020 2:00 AM OPERATING ROOM AIDE PROPHYLAXIS - ADULT Routine 09/23/2020 2 :00 AM OPERATING ROOM AIDE COMPREHENSIVE ORAL EVALUATION - NEW OR ESTABLISHED PATIENT Routine 09/23/2020 2:00 AM OPERATING ROOM AIDE PANORAMIC RADIOGRAPHIC IMAGE Routine 09/23/2020 2:00 AM OPERATING ROOM AIDE INTRAORAL - COMPREHENSIVE SERIES OF RADIOGRAPHIC IMAGES Routine 09/23/2020 2:00 AM OPERATING ROOM AIDE INTRAORAL PHOTO Routine 09/23/2020 2:00 AM OPERATING ROOM AIDE INTRAORAL PHOTO Routine 09/23/2020 2:00 AM OPERATING ROOM AIDE INTRAORAL PHOTO Routine 09/23/2020 2:00 AM OPERATING ROOM AIDE INTRAORAL PHOTO Routine 09/23/2020 2:00 AM OPERATING ROOM AIDE Visit Diagnoses Diagnosis Start Date Encounter for dental examination and cleaning without abnormal findings 02/26/2024 Encounter for dental examination and cleaning without abnormal findings 09/11/[address] [place] [address] [id number] [employer] [place] [address] [place] [id number]
--- OUTSIDE RECORDS SUMMARY | 2024-10-30 18:46 | XMS_ITS | Continuity of Care Document ---
Author Organization [facility] Address [address] [place] [address] [address] [place] [address] Phone Care Team Providers Care Catalog Librarian Name Role Phone Bryant OD, Jackson Unavailable Unavailable Advance Directives Directive Yes / No Effective Date File Name No Information Encounters Encounter Description Practice Location Reason(s) For Visit Diagnoses Date Provider Providers Copied on Encounter [facility], [id number] [place] [address] [address], [place], [place], [id number], [place] tel:[phone] [facility] No Information Dec- 6-200 4 Bryant OD Jackson. [address] , [address], [place], [address], [place]. tel:[phone] Family History Family Member Type Diagnosis Age At Onset No Information Payers Payer name Insurance type Covered alliance party ID Authoriza tion(s) No Information Social History [...]
--- OUTSIDE RECORDS SUMMARY | 2024-10-30 18:46 | XMS_ITS | Clinical Summary ---
Author Organization [facility] Address [address] [place] [address]. [place], [place] [address] [place] [id number] Care Team Providers Care Gyroscope Repairer Name Role Phone Hamlet Hernandez MD Primary Care Provider [phone] Allergies No known active allergies Medications lovastatin 10 MG tablet Take 10 mg by mouth daily with supper. Active rivaroxaban 20 MG Tab tablet Take by mouth daily with supper. Take with food Active Active Problems No known active problems [...] Sign Reading Time Taken Comments Blood Pressure 116/67 06/21/2020 10:26 AM CDT Pulse 57 06/21/2020 10:26 AM CDT Temperature 36.3 ??C (97.3 ??F) 06/21/2020 9:17 AM CD T Respiratory Rate 14 06/21/2020 10:26 AM CDT Oxygen Saturation 99% 06/21/2020 10:26 AM CDT Inhaled Oxygen Concentration - - Weight 68.5 kg (151 lb) 06/15/2020 9:49 AM CDT Height 162.6 cm (5' 4 ) 06/15/2020 9:49 AM CDT Body Mass Index 25.92 06/15/2020 9:49 AM CDT Plan of Treatment Health Maintenance Due Date Last Done Comments Hepatitis C 1966 DTaP, Tdap and Td Vaccines ( 1 - Tdap) 1967 Zoster Vaccines (1 of 2) 1998 Annual Medicare Wellness Visit 2013 Dexa Scan (General) 2013 Pneumococcal Vaccine: 65+ Ye ars (1 of 1 - PCV) 2013 RSV Immunization or 60+ Years (1 - 1-dose 75+ series) 2023 COVID-19 Vaccine (1 - 2023-2 5 season) 2024 Influenza Adult (#1) 2024 06/20/2017 Meningococcal B Vaccine Aged Out No l onger eligible based on patient's age to complete this topic Meningococcal Vaccine Aged Out No steven james eligible based on patient's age to complete this topic RSV Immunizations Under 20 Months Aged Out No longer eligible based on patient's age to complete this topic Medical Devices Implanted Type Area Asphalt Blender Device Identifier Shelf Expiration Date Model / Serial / Lot Iol [employer] Zcboo - [id number] Implanted:Qty: 1 on 06/21/2020 by Mark De Leon MD at [facility] Lens Left: Eye [employer] 06/23/2021 [id number] / [id number] / Insurance [facility] [place] [id number] [facility] [place] [address] [place] [id number] Care Teams Gyroscope Repairer Relationship Specialty Start Date End Date Hamlet Hernandez MD [address] [place] [address] PCP - General FAMILY PRACTICE 06/21/20
== END 2024-10-28 14:16 | disposition home or self-care (01) ==
PROVIDERS: PCP Family Medicine; Visit Provider Orthopaedic Surgery
DX: Z96.651 Presence of right artificial knee joint (principal)
CPT/HCPCS: 73562

== ENCOUNTER 2025-01-06 08:29 | Outpatient (CLI) | payer MEDICARE, BC, SELFPAY ==
--- NOTE | ~2025-01-06 | MM_ITS ---
EXAMINATION: MM screening xochitl BI w zack HISTORY: Screening TECHNIQUE: Craniocaudal and mediolateral oblique 3-D tomosynthesis images were obtained and synthetic 2-D images were generated. CAD analysis was submitted and interpreted. COMPARISON: Comparison to multiple prior studies sequentially, with oldest reviewed study dated 12/2017. BREAST PARENCHYMAL COMPOSITION: Not dense: There are scattered areas of fibroglandular density. FINDINGS: There is no evidence of suspicious mass, calcification, or architectural distortion to sugg est malignancy in either breast. There has been no suspicious interval change. IMPRESSION: 1. No mammographic evidence of malignancy. 2. Recommend routine screening mammography in one year. BI-RADS Category 1: Negative Reviewed, dictated and finalized at location A.
--- OUTSIDE RECORDS SUMMARY | 2025-01-06 08:39 | XMS_ITS | Encounter Summary ---
Author Organization [facility] Address [address] [place] [address] Care Team Providers Care Farm Products Shipper Name Role Phone Makr De Leon MD Primary Care Provider Hamlet Hernandez MD Primary Care Provider [phone] Encounter Details Date Type Department Care Team (Late st Contact Info) Description 06/15/2020 Prep for Procedure [facility] [address] [place] [address] Mark De Leon MD [address] [facility] [address] [place] [address] Social History Tobacco Use Types [...] DETECTED NOT DETECTED 06/19/2020 4:01 PM CDT [facility] Comment: A Not Detected (negative) test result for this test means that SARS- CoV-2 RNA was not present in the specimen above the limit of detection. A negative result does not rule out the possibility of COVID-19 and should not be used as the sole basis for treatment or patient management decisions. If COVID-19 is still suspected, based on exposure [...] providers and patients using the following websites: https://www.Biomoti.[employer] Signage/home/Covid-19/HCP/NAAT/fact-sheet2 https://www.Tbricks/home/Covid-19/Patients/NAAT/ fact-sheet2 This test has been authorized by the FDA under an Emergency Use Authorization (EUA) for use by authorized laboratories. Due to the current public health emergency, [facility] is receiving a high volume of samples [...] including collection of an additional specimen. Methodology: Nucleic Acid Amplification Test (NAAT) includes PCR or TMA Additional information about COVID-19 can be found at the [facility] website: www.apiOmat.Minicom Digital Signage/Covid19. Test performed at [facility] [address] [place] [address] Director: BABS SONG DO,MPH FIRST TEST UNKNOWN 06/18/2020 3:40 PM CDT [facility] EMPLOYED IN HEALTHCARE UNKNOWN 06/18/2020 3:40 PM CDT [facility] SYMPTOMATIC DEFINED BY CDC NO 06/18/2020 3:40 PM CDT [facility] DATE OF SYMPTOM ONSET NON-APPLICABLE 06/18/2020 3:40 PM CDT [facility] HOSPITALIZATION STATUS NO 06/18/2020 3:40 PM CDT [facility] PATIENT IN ICU NO 06/18/2020 3:40 PM CDT [facility] RESIDENT OF CONGREGATE CARE NO 06/18/2020 3:40 PM CDT [facility] NO 06/18/2020 3:40 PM CDT [facility] PATIENT'S RACE WHITE OR 06/18/2020 3:40 PM CDT [facility] ETHNICITY NONHISPANIC 06/18/2020 3:40 PM CDT [facility] SOURCE (QST) NASOPHARYNGEAL SWAB 06/18/2020 11:30 AM CDT [facility] NASOPHARYNGEAL SWAB / Unknown 06/18/2020 11:32 AM CDT us Mark De Leon MD MICROBIOLOGY - GENERAL ORDERAB LES Final Result [facility] [address] [place] [address], [place] [address], documented in this encounter Visit Diagnoses Diagnosis Preop testing- Primary Preoperative examination, unspecified documented in this encounter Additional Health Concerns Infection Onset Date Last Indicated Resolved Time COVID-19 Rule Out 06/18/2020 06/18/2020 06/19/2020 4:01 PM CDT documented as of this encounter Care Teams Farm Products Shipper Relationship Specialty [place] [address] [place] [address] PCP - General OPHTHALMOLOGY 06/16/20 06/20/20 Hamlet Hernandez MD [address] [place], [place] [id number] PCP - General FAMILY PRACTICE 06/21/20 documented as of this encounter
--- OUTSIDE RECORDS SUMMARY | 2025-01-06 08:39 | XMS_ITS | Continuity of Care Document ---
Author Organization [facility] Address [address] [place] [address] [address] [place] [address] Phone Care Team Providers Care Medical Claims Representative Name Role Phone Bryant OD, Jackson Unavailable Unavailable Advance Directives Directive Yes / No Effective Date File Name No Information Encounters Encounter Description Practice Location Reason(s) For Visit Diagnoses Date Provider Providers Copied on Encounter [facility], [address] [place] [address] [address], [place], [place], [id number], [place] tel:[phone] [facility] No Information Dec- 6-200 4 Bryant OD Jackson. [address] , [address], [place], [address], [place]. tel:[phone] Family History Family Member Type Diagnosis Age [...]
--- OUTSIDE RECORDS SUMMARY | 2025-01-06 08:39 | XMS_ITS | Encounter Summary ---
Author Organization [facility] Address [address] [place] [address] Care Team Providers Care Marine Service Operator Name Role Phone Unavailable Primary Care Provider Unavailabl e Prior Encounters Date Type Department Care Team Description 09/11/2024 Travel 09/11/2024 2:15 PM BRICKLAYER'S ASSISTANT Office Visit [facility] [address] [place] [phone] Malena Baker DMD Encounter for dental examination and cleaning without abnormal findings (Primary Dx) 02/26/2024 Travel 02/26/2024 12:00 PM CDT Office Visit [facility] [address] [place] [phone] Malena Baker DMD Encounter for dental examination and cleaning without abnormal findings (Primary Dx) 12/07/2022 Travel 12/07/2022 3:15 PM BRICKLAYER'S ASSISTANT Office Visit [facility] [address] [place] [phone] Javon Braxton DDS 04/14/2022 10:00 AM CDT Office Visit [facility] [address] [place] [address] Federico Ceja DDS 04/14/2022 10:00 AM CDT Office Visit [facility] [address] [place] [address] 10/14/2021 Travel 10/14/2021 10:00 AM BRICKLAYER'S ASSISTANT Office Visit [facility] [address] [place] [phone] Rosaura Randall, DMD 04/01/2021 Travel 04/01/2021 11:00 AM CDT Office Visit [facility] [address] [place] [phone] Rosaura Randall, DMD 10/27/2019 Converted CPS Chart Documents [facility] [address] [place] [address] <No scans attached> 10/27/2019 Converted 13x Documents [facility] [address] [place] [phone] <No scans attached> Last Filed Vital Signs [...] Description 04/06/2025 2:00 PM CDT Office Visit [facility] [address] [place] [address] Malena Baker, DMD [address] [place] [address] Procedures Procedure Name Priority Date/Time Associated Diagnosis Comments PERIODIC ORAL EVALUATION - ESTABLISHED PATIENT Routine 09/11/2024 2:15 PM BRICKLAYER'S ASSISTANT Encounter for dental examination and cleaning without [...] ORAL HYGIENE INSTRUCTIONS Routine 2022 3:15 PM BRICKLAYER'S ASSISTANT PROPHYLAXIS - ADULT Routine 12/07/2022 3 :15 PM BRICKLAYER'S ASSISTANT BITEWINGS - FOUR RADIOGRAPHIC IMAGES Routine 12/07/2022 3:15 PM BRICKLAYER'S ASSISTANT COMPREHENSIVE ORAL EVALUATION - NEW OR ESTABLISHED PATIENT Routine 12/07/2022 3:15 PM BRICKLAYER'S ASSISTANT TOPICAL APPLICATION OF FLUORIDE VARNISH Routine 04/14/2022 10:00 AM CDT ORAL HYGIENE INSTRUCTIONS Routine 2021 10:00 AM CDT PROPHYLAXIS - ADULT Routine 04/14/2022 1 0:00 AM CDT PERIODIC ORAL EVALUATION - ESTABLISHED PATIENT Routine 04/14/2022 10:00 AM CDT 20 ROOT CANAL Routine 04/14/2022 12:00 AM CDT 20 PFM CROWN Routine 04/14/2022 12:00 AM CDT PROPHYLAXIS - ADULT Routine 10/14/2021 1 0:00 AM BRICKLAYER'S ASSISTANT BITEWINGS - FOUR RADIOGRAPHIC IMAGES Routine 10/14/2021 10:00 AM BRICKLAYER'S ASSISTANT ADDITIONAL X-RAY Routine 10/14/2021 10:0 0 AM BRICKLAYER'S ASSISTANT ADDITIONAL X-RAY Routine 10/14/2021 10:0 0 AM BRICKLAYER'S ASSISTANT ADDITIONAL X-RAY Routine 10/14/2021 10:0 0 AM BRICKLAYER'S ASSISTANT ADDITIONAL X-RAY Routine 10/14/2021 10:0 0 AM BRICKLAYER'S ASSISTANT ADDITIONAL X-RAY Routine 10/14/2021 10:0 0 AM BRICKLAYER'S ASSISTANT SINGLE X-RAY Routine 10/14/2021 10:00 AM BRICKLAYER'S ASSISTANT PERIODIC ORAL EVALUATION - ESTABLISHED PATIENT Routine 10/14/2021 10:00 AM BRICKLAYER'S ASSISTANT OFFICE VISIT FOR OBSERVATION (DURING REGULARLY SCHEDULED [...] OTHER SERVICES PERFORMED Routine 12/17/2020 2:00 AM BRICKLAYER'S ASSISTANT 18 RECEMENT CROWN Routine 11/18/2020 2:0 0 AM BRICKLAYER'S ASSISTANT 18 LIMITED ORAL EVALUATION - PROBLEM FOCUSED Routine 11/18/2020 2:00 AM BRICKLAYER'S ASSISTANT ADDITIONAL X-RAY Routine 11/18/2020 2:00 AM BRICKLAYER'S ASSISTANT SINGLE X-RAY Routine 11/18/2020 2:00 AM BRICKLAYER'S ASSISTANT OFFICE VISIT FOR OBSERVATION (DURING REGULARLY SCHEDULED HOURS) - NO OTHER SERVICES PERFORMED Routine 10/05/2020 2:00 AM BRICKLAYER'S ASSISTANT 13 MOD AMALGAM 3 SURFACE Routine 020 2:00 AM BRICKLAYER'S ASSISTANT 30 MO AMALGAM 2 SURFACE Routine 09/23/20 20 2:00 AM BRICKLAYER'S ASSISTANT 29 DO AMALGAM 2 SURFACE Routine 09/23/20 20 2:00 AM BRICKLAYER'S ASSISTANT 15 LO AMALGAM 2 SURFACE Routine 09/23/20 20 2:00 AM BRICKLAYER'S ASSISTANT 31 O AMALGAM 1 SURFACE Routine 0 2:00 AM BRICKLAYER'S ASSISTANT 19 CERECFIRED CROWNPOST Routine 09/23/20 20 2:00 AM BRICKLAYER'S ASSISTANT 18 CERECFIRED CROWNPOST Routine 09/23/20 20 2:00 AM BRICKLAYER'S ASSISTANT 14 CERECFIRED CROWNPOST Routine 09/23/20 20 2:00 AM BRICKLAYER'S ASSISTANT 32 EXTRACTION, ERUPTED TOOTH OR EXPOSED ROOT (ELEVATION AND/OR FORCEPS REMOVAL) Routine 09/23/2020 2:00 AM BRICKLAYER'S ASSISTANT 17 EXTRACTION, ERUPTED TOOTH OR EXPOSED ROOT (ELEVATION AND/OR FORCEPS REMOVAL) Routine 09/23/2020 2:00 AM BRICKLAYER'S ASSISTANT 16 EXTRACTION, ERUPTED TOOTH OR EXPOSED ROOT (ELEVATION AND/OR FORCEPS REMOVAL) Routine 09/23/2020 2:00 AM BRICKLAYER'S ASSISTANT 2 EXTRACTION, ERUPTED TOOTH OR EXPOSED ROOT (ELEVATION AND/OR FORCEPS REMOVAL) Routine 09/23/2020 2:00 AM BRICKLAYER'S ASSISTANT ORAL HYGIENE INSTRUCTIONS Routine 2019 2:00 AM BRICKLAYER'S ASSISTANT TOPICAL APPLICATION OF FLUORIDE VARNISH Routine 09/23/2020 2:00 AM BRICKLAYER'S ASSISTANT PROPHYLAXIS - ADULT Routine 09/23/2020 2 :00 AM BRICKLAYER'S ASSISTANT COMPREHENSIVE ORAL EVALUATION - NEW OR ESTABLISHED PATIENT Routine 09/23/2020 2:00 AM BRICKLAYER'S ASSISTANT PANORAMIC RADIOGRAPHIC IMAGE Routine 09/23/2020 2:00 AM BRICKLAYER'S ASSISTANT INTRAORAL - COMPREHENSIVE SERIES OF RADIOGRAPHIC IMAGES Routine 09/23/2020 2:00 AM BRICKLAYER'S ASSISTANT INTRAORAL PHOTO Routine 09/23/2020 2:00 AM BRICKLAYER'S ASSISTANT INTRAORAL PHOTO Routine 09/23/2020 2:00 AM BRICKLAYER'S ASSISTANT INTRAORAL PHOTO Routine 09/23/2020 2:00 AM BRICKLAYER'S ASSISTANT INTRAORAL PHOTO Routine 09/23/2020 2:00 AM BRICKLAYER'S ASSISTANT Visit Diagnoses Diagnosis Start Date Encounter for dental examination and cleaning without abnormal findings 02/26/2024 Encounter for dental examination and cleaning without abnormal findings 09/11/[address] [place] [address] [id number] [employer] [place] [address] [id number]
--- OUTSIDE RECORDS SUMMARY | 2025-01-06 08:39 | XMS_ITS | Clinical Summary ---
Author Organization [facility] Address [address] [place] [address] Care Team Providers Care Casino Floorperson Name Role Phone Unavailable Primary Care Provider [...] Description 04/06/2025 2:00 PM CDT Office Visit [facility] [address] [place] [phone] Malena Baker, DMD [address] [place] [address] Health Maintenance Due Date Last Done Comments [...] - ESTABLISHED PATIENT Routine 09/11/2024 2:15 PM HARD TILE SETTER APPRENTICE Encounter for dental examination and cleaning without abnormal findings PROPHYLAXIS - ADULT Routine 02/26/2024 1 2:00 PM CDT Encounter for dental examination and cleaning without abnormal findings PANORAMIC RADIOGRAPHIC IMAGE Routine 09/23/2020 2:00 AM HARD TILE SETTER APPRENTICE INTRAORAL - COMPREHENSIVE SERIES OF RADIOGRAPHIC IMAGES Routine 09/23/2020 2:00 AM HARD TILE SETTER APPRENTICE from Last 3 Months or Most Recently Relevant to Health Maintenance [place] [id number] [employer] HMO
--- OUTSIDE RECORDS SUMMARY | 2025-01-06 08:39 | XMS_ITS | Data Portability ---
Author Organization [place] - [facility] [employer], Main Office Address [address] [place] [address] Care Team Providers Care Trench Digging Machine Operator Name Role Phone AMBER CASTRO Primary Care Provider AMBER CASTRO Referring Provider Assessment Encounter Date Assessment Date Assessment LastModified by Organization Details LastModified Time 12/01/2024 12/01/2024 This note is dictated and transcribed by [employer]. Orthopedic Designer variances may occur. Despite proofreading, typographical errors may occur. Occasional wrong-word or '[id number]' substitutions may have occurred due to the inherent limitations of voice recording. Read the chart carefully and recognize, using context, where substitutions have occurred. [email or web address] Not available 12/01/2024 14:29:58 Plan of Treatment Reminders Order Date Submit Date Provider Last Modified By Organization Details Last Modified Time Details Appointments None record ed. Lab None record ed. Referral None record ed. Procedures None record ed. Surgeries None record ed. Imaging None record ed. Medication Orders None record ed. Patient TargetsNo targets recorded. Patient InstructionsNo instructions recorded. Reason for Referral None Reported. Results Created Date Observation Date Name Description Value Unit Range Abnormal Flag Note LastModifiedBy Organization Detail LastModifiedTime 10/06/20 21 10/06/2021 US, foot [facility] [address] [facility], [place] [address] [phone] Patien t Name: TITA WADDELL Access ion #: [id number] Sex: F : 1949 8 Locati on: RAD Attend ing Physic tawnya: IGNACIO MCCLAIN Orderi ng Physic tawnya: RUKHSANAIGNACIO QUESADA Exam Date: 2020 11:31 AM Exam Name: US FOOT LT LIMITE D Admitt ing Diagno sis(es ): RADIOL OGY REPORT - FINAL EXAM: US FOOT LT LIMITE D HISTOR Y: left foot lipoma 71-yea r-old female with left foot palpab le abnorm alitie s along the planta r aspect of the left foot. COMPAR YASEMIN: None availa ble. TECHNI QUE: Ultras ound examin ation of the planta r aspect of the left foot was perfor med. FINDIN GS: No solid masses or cystic lesion s are identi fied along the planta r aspect of the left foot in the areas of the patien t's palpab le abnorm alitie s. No fibrom as or areas of focal thicke kirk are identi fied along the planta r fascia . No findin gs are identi fied here to explai n the patien t's palpab le abnorm alitie s. Page 1 of 2 [facility] Name: TITA WADDELL Access ion #: [id number] Sex: F : 1949 6 Exam Date: 2020 11:31 AM Exam Name: US FOOT LT LIMITE D Admitt ing Diagno sis(es ): IMPRES SARINA: No sonogr aphic abnorm alitie s are identi fied about the planta r aspect of the left foot in the areas of the patien t's palpab le abnorm alitie s. Correl ate with standa rd radiog raphs of the left foot if not alread y perfor med elsewh ere. Create d and electr onical ly signed by: Valdez sal MD Signed Date: 2020 11:42 AM (CT) Dictat ed by: Valdez sal MD DD: 2020 11:42 AM (CT) DT: 2020 11:42 AM (CT) Page 2 of 2 [facility].[id number] [facility] ([facility] [address] [place] [address], [address], 12/07/2022 00:02:52 Result Notes None recorded. 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 0897924254870 9101 Active 2021 Not Available [facility] 3 23:59:38 Soft tissue lesion of foot region 852011218 Active 2020 Not Available [facility] 3 23:59:39 Pain in left foot 8640979260843 07 Active 2020 Not Available [facility] 3 23:59:39 Acquired hallux limitus of right great toe 6649777196208 100 Active 2024 Ignacio Stack DPM [address], [place], [address] , [facility] 5 14:30:04 Peroneal tendinitis of right lower limb 4110078042102 09 Active 2024 Ignacio Stack DPM [address], [place], [address] , [facility] 5 14:30:12 Congenital pes planus 90774332 Active 2024 Ignacio Stack DPM [address], [place], [address] , [facility] 5 14:30:23 Hammer toe 021777904 Active 2024 Ignacio Stack DPM [address], [place], [address] , [facility] 5 14:30:40 Problem Notes None recorded. Procedures Surgical History Date Name Laterality Status Provider Name and Address Organization Details Recorded Time [place] Teeth completed Not Available [facility] 12/06/2022 23:57:20 Cataract Surgery completed Not Available [facility] 12/06/2022 23:57:20 Dilation and curettage completed Not Available [facility] 12/06/2022 23:57:20 Tubal Ligation completed Not Available [facility] 12/06/2022 23:57:20 lumpectomy of breast completed Not Available [facility] 12/06/2022 23:57:20 [facility]idectomy completed [facility] 12/06/2022 23:57:20 Knee Replacement completed Mel [facility] 12/01/2024 14:20:09 Imaging Results Imaging Date Name Status LastModified by Organiz ation Details LastModified Time 10/06/2021 US, foot completed [id number] [facility] [address] [place], [address], 12/07/2022 00:02:52 Procedure Notes None recorded. Medical Equipment None Reported. Allergies No known drug allergies Medications Name Sig Start Date Stop Date Status Note LastModified by Organization Details LastModified Time meloxicam 15 mg tablet TAKE 1 TABLET BY MOUTH DAILY 12/01 completed Not Available Not Available Not Available prednisone 5 mg tablet TAKE 1 TABLET BY MOUTH DAILY FOR 3 WEEKS 12/01 completed Not Available Not Available Not Available lovastatin 10 mg tablet 12/01 completed Not Available Not Available Not Available amoxicillin 500 mg tablet TAKE 4 TABLETS BY MOUTH 1 HOUR PRIOR TO PROCEDURE DIRECTED 12/01 completed Not Available Not Available Not Available oxycodone-a cetaminophe n 5 mg-325 mg tablet TAKE 1-2 TABLETS BY MOUTH EVERY 4-6 HOURS NEEDED FOR PAIN FOR 7 DAYS 12/01 completed Not Available Not Available Not Available Xarelto 10 mg tablet TAKE 1 TABLET BY MOUTH DAILY STARTING AFTER SURGERY 12/01 completed Not Available Not Available Not Available Xarelto 20 mg tablet 12/01 completed Not Available Not Available Not Available Vitals Date Recorded Heart rate Systolic blood pressure Diastolic blood pressure Provider Name and Address Organization Details Last Updated DateTime 09/12/2021 71 /min 140 mm[Hg] 99 mm[Hg] Not Available [facility] 12/06/2022 23:58:21 Date Recorded Heart rate Systolic blood pressure Diastolic blood pressure Provider Name and Address Organization Details Last Updated DateTime 10/10/2021 74 /min 131 mm[Hg] 93 mm[Hg] Not Available [facility] 12/06/2022 23:58:21 Date Recorded Heart rate Respiratory rate Oxygen saturation Oxygen saturation in Arterial blood by Pulse oximetry Body height Body mass index (BMI) Body weight Systolic blood pressure Diastolic blood pressure Provider Name and Address Organization Details Last Updated DateTime 5 83 /min 14 /min 99 % 99 % 160.02 cm 27.5 kg/m2 54701.8 2 g 90 mm[Hg] 63 mm[Hg] Mel Smiley [place] [facility] 5 14:08:36 Social History Question Answer Notes LastModified by Organizat ion Details LastModified Time Tobacco Smoking Status Never Smoker Not Available [facility] 12/06/2022 23:56:57 What Is Your Level Of Alcohol Consumption? Occasional [id number] Information not available 12/06/2022 What Is Your Level Of Caffeine Consumption? Occasional [id number] Information not available 12/06/2022 What Was The Date Of Your Most Recent Tobacco Screening? 12/01/2024 [email or web address] Information not available 12/01/2024 Have You Ever Been Counseled For Unhealthy Alcohol Use? No [id number] 026 Information not available 12/06/2022 Do You Use Any Illicit Or Recreational Drugs? No [id number] 026 Information not available 12/06/2022 Has Tobacco Cessation Counseling Been Provided? No [id number] 026 Information not available 12/06/2022 Do You Or Have You Ever Used Any Other Forms Of Tobacco Or Nicotine? No [id number].[id number] 026 Information not available 12/06/2022 Sex: Unknown Functional Status None recorded. Mental Status None recorded. Family History Relationship Description Onset Age of this Age Resolved Age Notes LastModified by Organization Details LastModified Time Mother Diabetes mellitus [email or web address] Not available 2024 14:19:15 Brother Diabetes mellitus [id number] Not available 12/06/2022 23:57:23 Brother Hypertensive disorder MIGRATION.373 [id number] Not available 12/06/2022 23:57:23 Brother Heart disease MIGRATION.607 [id number] Not available 12/06/2022 23:57:23 Mother Arthritis MIGRATION.091 [id number] Not available 12/06/2022 23:57:23 Mother Hypertensive disorder [id number].285 [id number] Not available 12/06/2022 23:57:23 Mother Family history of malignant neoplasm [id number].182 [id number] Not available 12/06/2022 23:57:23 Father Heart disease MIGRATION.568 [id number] Not available 12/06/2022 23:57:23 Maternal Grandmother Heart disease MIGRATION.342 [id number] Not available 12/06/2022 23:57:23 Maternal Grandfather Family history of malignant neoplasm MIGRATION.781 [id number] Not available 12/06/2022 23:57:23 Medical History Condition Response ARTHRITIS Y CANCER: SPECIFY Y HEADACHES/MIGRAINES Y BLOOD CLOTS Y DIZZINESS Y OSTEOPOROSIS Y BACK / NECK PROBLEMS Y RADIATION / CHEMOTHERAPY Y HIGH CHOLESTEROL / HYPERLIPIDEMIA Y Gynecological HistoryNo gynecological history recorded. Obstetrics History GPAL:G 0 P 0 0 0 0 Past Encounters Encounter ID Performer Location Encounter Start Date Encounter Closed Date Diagnosis/Indication Diagnosis SNOMED-CT Code Diagnosis ICD10 Code Diagnosis Note [id number] _JO_Madalyn IGRATION_ DEFAULT_1 _1 , 09/12/2021 00:00:00 09/13/2021 11:44:51 [id number] _JO_M IGRATION_ DEFAULT_1 _1 , 10/10/2021 00:00:00 10/10/2021 15:04:17 [id number] Ignacio Stack DPM [facility] [address] [place] [address] 12/01/2024 13:57:56 12/03/2024 12:06:18 Acquired hallux limitus of right great toe 0363459209 009258 M20.5X1 discuss treatment options in detail as well as x-rays new line patient defers surgeryCon tinue with conservati ve offloading Recommend Todd's extension on orthoticsF ollow-up as needed Hammer toe 528735622 M20 .41 discuss treatment options in detail as well as x-raysPati ent defers surgeryCon tinue with conservati ve offloading Follow-up as needed Peroneal t endinitis of right lower limb 6309693341 95478 M76.71 resolvedre commend orthotics Congenital pes planus 23 042857 Q66.51 recommend Power[employer] orthotics and supportive shoe gearx-rays reviewed with the patient Health Concerns Section Related Observation LastModified by Organization Meri ybarra LastModified Time None Recorded Concern Status LastModified by Organization Details LastModified Time None Recorded Advance Directives Directive None Recorded Payers Encounter Date Sequence Insurance Name Policy Number Policy Toussaint Covered Member ID Toussaint Member ID Guarantor Name 12/01/2024 1 [place] Tita Waddell [id number] Tita Waddell 12/01/2024 2 [place] PROGRAM (PPO) [address] Waddell [id number] Tita Waddell Notes Date Note Type Note Provider Name and Address Organization Details Recorded Time 12/01/2024 text/html Patient is a 74-year-old female with right foot pain who presents to the office. Patient states that she has basically resolved all her pain to her foot. Patient states that she went to follow-up for why she was having the discomfort. Patient denies any injury. Patient states when she is walking or standing she had more pain worse to the plantar midfoot and lateral 5th metatarsal base. Patient denies any bruising redness or signs of infection to these areas. Patient states when she was at rest it did feel better. Patient denies any other complaints. Ignacio Stack DPM [address] [facility] [address], [place], [address], [facility] 12/01/2024 16:56:21 OBGyn Episode No OBEpisode recorded.
--- OUTSIDE RECORDS SUMMARY | 2025-01-06 08:39 | XMS_ITS | Clinical Summary ---
Author Organization [facility] Address [address] [place] [address] Care Team Providers Care Machine Helper Name Role Phone Hamlet Hernandez MD Primary Care Provider [phone] Allergies No known active allergies Medications lovastatin [...] 57 06/21/2020 10:26 AM CDT Temperature 36.3 C (97.3 F) 06/21/2020 9:17 AM CDT Respiratory Rate 14 06/21/2020 10:26 AM CDT [...] this topic Medical Devices Implanted Type Area Neurourologist Device Identifier Shelf Expiration Date Model / Serial / Lot Iol [employer] Zcboo - [id number] Implanted:Qty: 1 on 06/21/2020 by Mark De Leon MD at [facility] Lens Left: Eye [employer] 06/23/2021 [id number] / [id number] / Insurance [facility] [place] [address] [id number] [facility] [place] MEDICARE Care Teams Machine Helper Relationship Specialty Start Date End Date Hamlet Hernandez MD [address] [address] PCP - General FAMILY PRACTICE 06/21/20
== END 2025-01-06 08:30 | disposition home or self-care (01) ==
PROVIDERS: PCP Family Medicine; Visit Provider Family Medicine
DX: Z12.31 Encounter for screening mammogram for malignant neoplasm of breast (principal)
CPT/HCPCS: 77063; 77067

== ENCOUNTER 2025-01-27 13:28 | Outpatient (CLI) | payer MEDICARE, BC, SELFPAY ==
[2025-01-27 13:47] LABS: Basophils Absolute Auto 0.1 K/mm3 (0.0-0.1); Basophils Percent Auto 1.1 % (0.2-1.2); Eosinophils Absolute Auto 0.2 K/mm3 (0-0.3); Eosinophils Percent Auto 2.3 % (0-4.4); Hematocrit 33.3 % (37.0-47.0); Hemoglobin 11.2 g/dL (12.0-15.0); Immature Granulocyte Absolute 0.02 K/mm3 (0.00-0.031); Immature Granulocyte Percent A 0.3 % (0-0.5); Lymphocytes Absolute Auto 3.18 K/mm3 (0.9-3.2); Lymphocytes Percent Auto 48.1 % (18.3-44.2); Mean Corpuscular HGB Conc 33.6 g/dl (32-36); Mean Corpuscular Volume 95.1 fl (80-100); Mean Platelet Volume 9.6 fl (7.4-10.4); Monocytes Absolute Auto 0.5 K/mm3 (0.1-0.6); Monocytes Percent Auto 7.1 % (2.6-8.5); Neutrophils Absolute Auto 2.7 K/mm3 (1.3-6.7); Neutrophils Percent Auto 41.1 % (45.5-73.1); Platelet Count Result 184 k/mm3 (150-375); Red Cell Distribution Width 12.8 % (11.5-14.5); White Blood Count 6.6 K/mm3 (4.5-10.0)
[2025-01-27 14:00] LABS: Anion Gap 6 mmol/L (4-12); Blood Urea Nitrogen 14 mg/dL (7-17); Calcium 8.1 mg/dL (8.4-10.2); Carbon Dioxide 27 mmol/L (22-30); Chloride 101 mmol/L (98-107); Estimated Glomerular Filt Rate > 60; Glucose 96 mg/dL (65-110); Sodium 134 mmol/L (137-145)
[2025-01-27 14:15] LABS: Atypical Lymphocytes Present; Platelet Estimate Adequate (Adequate); Schistocytes None Seen
--- OUTSIDE RECORDS SUMMARY | 2025-01-27 15:16 | XMS_ITS | Encounter Summary ---
Author Organization [facility] Address [address] [place] [address] Care Team Providers Care Waterworks Operator Name Role Phone Mark De Leon MD Primary Care Provider Hamlet Hernandez MD Primary Care Provider [phone] Encounter Details Date Type Department Care Team (Late st Contact Info) Description 06/15/2020 Prep for Procedure [facility] [address] [place] [address] Mark De Leon MD [address] [facility] [address] [place] [address] Social History Tobacco Use Types [...] DETECTED NOT DETECTED 06/19/2020 4:01 PM CDT [facility] Comment: A Not Detected (negative) test result [...] providers and patients using the following websites: https://www.[employer].VideoBurst/home/Covid-19/HCP/NAAT/fact-sheet2 https://www.[employer] [facility]/home/Covid-19/Patients/NAAT/ fact-sheet2 This test has been authorized by the FDA under an Emergency Use Authorization (EUA) for use by authorized laboratories. Due to the current public health emergency, [facility] is receiving a high volume of samples [...] about COVID-19 can be found at the [facility] website: www.[employer].VideoBurst/Covid19. Test performed at [facility] [address] [place] [address] Director: BABS SONG DO,MPH FIRST TEST UNKNOWN 06/18/2020 3:40 PM CDT [facility] EMPLOYED IN HEALTHCARE UNKNOWN 06/18/2020 3:40 PM CDT [facility] SYMPTOMATIC DEFINED BY CDC NO 06/18/2020 3:40 PM CDT [facility] DATE OF SYMPTOM ONSET NON-APPLICABLE 06/18/2020 3:40 PM CDT [facility] HOSPITALIZATION STATUS NO 06/18/2020 3:40 PM CDT [facility] PATIENT IN ICU NO 06/18/2020 3:40 PM CDT [facility] RESIDENT OF CONGREGATE CARE NO 06/18/2020 3:40 PM CDT [facility] NO 06/18/2020 3:40 PM CDT [facility] PATIENT'S RACE WHITE OR 06/18/2020 3:40 PM CDT [facility] ETHNICITY NONHISPANIC 06/18/2020 3:40 PM CDT [facility] SOURCE (QST) NASOPHARYNGEAL SWAB 06/18/2020 11:30 AM CDT [facility] NASOPHARYNGEAL SWAB / Unknown 06/18/2020 11:32 AM CDT us Mark De Leon MD MICROBIOLOGY - GENERAL ORDERAB LES Final Result [facility] [address] [place] [address], [place] [address], documented in this encounter Visit Diagnoses Diagnosis Preop testing- Primary Preoperative examination, unspecified documented in this encounter Additional Health Concerns Infection Onset Date Last Indicated Resolved Time COVID-19 Rule Out 06/18/2020 06/18/2020 06/19/2020 4:01 PM CDT documented as of this encounter Care Teams Waterworks Operator Relationship Specialty [place] [address] [place] [address] PCP - General OPHTHALMOLOGY 06/16/20 06/20/20 Hamlet Hernandez MD [address] [place], [place] [id number] PCP - General FAMILY PRACTICE 06/21/20 documented as of this encounter
--- OUTSIDE RECORDS SUMMARY | 2025-01-27 15:16 | XMS_ITS | Clinical Summary ---
Author Organization [facility] Address [address] [place] [address] Care Team Providers Care Research Biologist Name Role Phone Unavailable Primary Care Provider [...] Description 04/06/2025 2:00 PM CDT Office Visit [facility] [address] [place] [phone] Malena Baker, DMD [address] [place] [address] Health Maintenance Due Date Last Done Comments [...] - ESTABLISHED PATIENT Routine 09/11/2024 2:15 PM MECHANICAL AND AUTO BODY CAR CHECKER Encounter for dental examination and cleaning without abnormal findings PROPHYLAXIS - ADULT Routine 02/26/2024 1 2:00 PM CDT Encounter for dental examination and cleaning without abnormal findings PANORAMIC RADIOGRAPHIC IMAGE Routine 09/23/2020 2:00 AM MECHANICAL AND AUTO BODY CAR CHECKER INTRAORAL - COMPREHENSIVE SERIES OF RADIOGRAPHIC IMAGES Routine 09/23/2020 2:00 AM MECHANICAL AND AUTO BODY CAR CHECKER from Last 3 Months or Most Recently Relevant to Health Maintenance [place] [place] [id number] [employer] H[employer]
--- OUTSIDE RECORDS SUMMARY | 2025-01-27 15:16 | XMS_ITS | Continuity of Care Document ---
Author Organization [facility] Address [address] [place] [address] [address] [place] [address] Phone Care Team Providers Care Surgery Tech Name Role Phone Bryant OD, Jackson Unavailable Unavailable Advance Directives Directive Yes / No Effective Date File Name No Information Encounters Encounter Description Practice Location Reason(s) For Visit Diagnoses Date Provider Providers Copied on Encounter formerly [facility], [id number] [place] [address] [address], [place], [place], [id number], [place] tel:[phone] [facility] No Information Dec- 6-200 4 Bryant OD [place]. [address] , [address], [place], [address], [place]. tel:[phone] Family History Family Member Type Diagnosis Age At Onset No Information Payers Payer name Insurance type Covered constitution party ID Authoriza tion(s) No Information Social [...]
--- OUTSIDE RECORDS SUMMARY | 2025-01-27 15:16 | XMS_ITS | Encounter Summary ---
Author Organization [facility] Address [address] [place] [address] Care Team Providers Care Front End Software Developer Name Role Phone Unavailable Primary Care Provider Unavailabl e Prior Encounters Date Type Department Care Team Description 09/11/2024 Travel 09/11/2024 2:15 PM JAVA PROGRAMMER ANALYST Office Visit [facility] [address] [place] [phone] Malena Baker DMD Encounter for dental examination and cleaning without abnormal findings (Primary Dx) 02/26/2024 Travel 02/26/2024 12:00 PM CDT Office Visit [facility] [address] [place] [phone] Malena Baker DMD Encounter for dental examination and cleaning without abnormal findings (Primary Dx) 12/07/2022 Travel 12/07/2022 3:15 PM JAVA PROGRAMMER ANALYST Office Visit [facility] [address] [place] [phone] Javon Braxton DDS 04/14/2022 10:00 AM CDT Office Visit [facility] [address] [place] [address] Federico Ceja DDS 04/14/2022 10:00 AM CDT Office Visit [facility] [address] [place] [address] 10/14/2021 Travel 10/14/2021 10:00 AM JAVA PROGRAMMER ANALYST Office Visit [facility] [address] [place] [phone] Rosaura Randall, DMD 04/01/2021 Travel 04/01/2021 11:00 AM CDT Office Visit [facility] [address] [place] [phone] Rosaura Randall, DMD 10/27/2019 Converted CPS Chart Documents [facility] [address] [place] [address] <No scans attached> 10/27/2019 Converted 13x Documents [facility] [address] [place] [phone] <No scans attached> Last Filed Vital Signs [...] Description 04/06/2025 2:00 PM CDT Office Visit [facility] [address] [place] [address] Malena Baker, DMD [address] [place] [address] Procedures Procedure Name Priority Date/Time Associated Diagnosis Comments PERIODIC ORAL EVALUATION - ESTABLISHED PATIENT Routine 09/11/2024 2:15 PM JAVA PROGRAMMER ANALYST Encounter for dental examination and cleaning without [...] ORAL HYGIENE INSTRUCTIONS Routine 2022 3:15 PM JAVA PROGRAMMER ANALYST PROPHYLAXIS - ADULT Routine 12/07/2022 3 :15 PM JAVA PROGRAMMER ANALYST BITEWINGS - FOUR RADIOGRAPHIC IMAGES Routine 12/07/2022 3:15 PM JAVA PROGRAMMER ANALYST COMPREHENSIVE ORAL EVALUATION - NEW OR ESTABLISHED PATIENT Routine 12/07/2022 3:15 PM JAVA PROGRAMMER ANALYST TOPICAL APPLICATION OF FLUORIDE VARNISH Routine 04/14/2022 10:00 AM CDT ORAL HYGIENE INSTRUCTIONS Routine 2021 10:00 AM CDT PROPHYLAXIS - ADULT Routine 04/14/2022 1 0:00 AM CDT PERIODIC ORAL EVALUATION - ESTABLISHED PATIENT Routine 04/14/2022 10:00 AM CDT 20 ROOT CANAL Routine 04/14/2022 12:00 AM CDT 20 PFM CROWN Routine 04/14/2022 12:00 AM CDT PROPHYLAXIS - ADULT Routine 10/14/2021 1 0:00 AM JAVA PROGRAMMER ANALYST BITEWINGS - FOUR RADIOGRAPHIC IMAGES Routine 10/14/2021 10:00 AM JAVA PROGRAMMER ANALYST ADDITIONAL X-RAY Routine 10/14/2021 10:0 0 AM JAVA PROGRAMMER ANALYST ADDITIONAL X-RAY Routine 10/14/2021 10:0 0 AM JAVA PROGRAMMER ANALYST ADDITIONAL X-RAY Routine 10/14/2021 10:0 0 AM JAVA PROGRAMMER ANALYST ADDITIONAL X-RAY Routine 10/14/2021 10:0 0 AM JAVA PROGRAMMER ANALYST ADDITIONAL X-RAY Routine 10/14/2021 10:0 0 AM JAVA PROGRAMMER ANALYST SINGLE X-RAY Routine 10/14/2021 10:00 AM JAVA PROGRAMMER ANALYST PERIODIC ORAL EVALUATION - ESTABLISHED PATIENT Routine 10/14/2021 10:00 AM JAVA PROGRAMMER ANALYST OFFICE VISIT FOR OBSERVATION (DURING REGULARLY SCHEDULED [...] OTHER SERVICES PERFORMED Routine 12/17/2020 2:00 AM JAVA PROGRAMMER ANALYST 18 RECEMENT CROWN Routine 11/18/2020 2:0 0 AM JAVA PROGRAMMER ANALYST 18 LIMITED ORAL EVALUATION - PROBLEM FOCUSED Routine 11/18/2020 2:00 AM JAVA PROGRAMMER ANALYST ADDITIONAL X-RAY Routine 11/18/2020 2:00 AM JAVA PROGRAMMER ANALYST SINGLE X-RAY Routine 11/18/2020 2:00 AM JAVA PROGRAMMER ANALYST OFFICE VISIT FOR OBSERVATION (DURING REGULARLY SCHEDULED HOURS) - NO OTHER SERVICES PERFORMED Routine 10/05/2020 2:00 AM JAVA PROGRAMMER ANALYST 13 MOD AMALGAM 3 SURFACE Routine 020 2:00 AM JAVA PROGRAMMER ANALYST 30 MO AMALGAM 2 SURFACE Routine 09/23/20 20 2:00 AM JAVA PROGRAMMER ANALYST 29 DO AMALGAM 2 SURFACE Routine 09/23/20 20 2:00 AM JAVA PROGRAMMER ANALYST 15 LO AMALGAM 2 SURFACE Routine 09/23/20 20 2:00 AM JAVA PROGRAMMER ANALYST 31 O AMALGAM 1 SURFACE Routine 0 2:00 AM JAVA PROGRAMMER ANALYST 19 CERECFIRED CROWNPOST Routine 09/23/20 20 2:00 AM JAVA PROGRAMMER ANALYST 18 CERECFIRED CROWNPOST Routine 09/23/20 20 2:00 AM JAVA PROGRAMMER ANALYST 14 CERECFIRED CROWNPOST Routine 09/23/20 20 2:00 AM JAVA PROGRAMMER ANALYST 32 EXTRACTION, ERUPTED TOOTH OR EXPOSED ROOT (ELEVATION AND/OR FORCEPS REMOVAL) Routine 09/23/2020 2:00 AM JAVA PROGRAMMER ANALYST 17 EXTRACTION, ERUPTED TOOTH OR EXPOSED ROOT (ELEVATION AND/OR FORCEPS REMOVAL) Routine 09/23/2020 2:00 AM JAVA PROGRAMMER ANALYST 16 EXTRACTION, ERUPTED TOOTH OR EXPOSED ROOT (ELEVATION AND/OR FORCEPS REMOVAL) Routine 09/23/2020 2:00 AM JAVA PROGRAMMER ANALYST 2 EXTRACTION, ERUPTED TOOTH OR EXPOSED ROOT (ELEVATION AND/OR FORCEPS REMOVAL) Routine 09/23/2020 2:00 AM JAVA PROGRAMMER ANALYST ORAL HYGIENE INSTRUCTIONS Routine 2019 2:00 AM JAVA PROGRAMMER ANALYST TOPICAL APPLICATION OF FLUORIDE VARNISH Routine 09/23/2020 2:00 AM JAVA PROGRAMMER ANALYST PROPHYLAXIS - ADULT Routine 09/23/2020 2 :00 AM JAVA PROGRAMMER ANALYST COMPREHENSIVE ORAL EVALUATION - NEW OR ESTABLISHED PATIENT Routine 09/23/2020 2:00 AM JAVA PROGRAMMER ANALYST PANORAMIC RADIOGRAPHIC IMAGE Routine 09/23/2020 2:00 AM JAVA PROGRAMMER ANALYST INTRAORAL - COMPREHENSIVE SERIES OF RADIOGRAPHIC IMAGES Routine 09/23/2020 2:00 AM JAVA PROGRAMMER ANALYST INTRAORAL PHOTO Routine 09/23/2020 2:00 AM JAVA PROGRAMMER ANALYST INTRAORAL PHOTO Routine 09/23/2020 2:00 AM JAVA PROGRAMMER ANALYST INTRAORAL PHOTO Routine 09/23/2020 2:00 AM JAVA PROGRAMMER ANALYST INTRAORAL PHOTO Routine 09/23/2020 2:00 AM JAVA PROGRAMMER ANALYST Visit Diagnoses Diagnosis Start Date Encounter for dental examination and cleaning without abnormal findings 02/26/2024 Encounter for dental examination and cleaning without abnormal findings 09/11/[address] [id number] [employer] [address] [place] [address] [id number]
--- OUTSIDE RECORDS SUMMARY | 2025-01-27 15:16 | XMS_ITS | Clinical Summary ---
Author Organization [facility] Address [address] [place] [address] Care Team Providers Care Oyster Culturist Name Role Phone Hamlet Hernandez MD Primary Care Provider [phone] Allergies No known active allergies Medications lovastatin [...] Td Vaccines ( 1 - Tdap) 1967 Pneumococcal Vaccine: 50+ Ye ars (1 of 1 - PCV) 1998 Zoster Vaccines (1 of 2) 1998 Annual Medicare Wellness Visit 2013 Dexa Scan (General) 2013 RSV Immunization or 60+ Years (1 - 1-dose 75+ series) 2023 COVID-19 Vaccine (1 - 2023-2 5 season) 2024 Meningococcal B Vaccine Aged Out No l onger eligible based on patient's age to complete this topic Meningococcal Vaccine Aged Out No steven james eligible based on patient's age to complete this topic RSV Immunizations Under 20 Months Aged Out No longer eligible based on patient's age to complete this topic Medical Devices Implanted Type Area Slitter And Rewinder Machine Operator Device Identifier Shelf Expiration Date Model / Serial / Lot Iol [employer] - [id number] Implanted:Qty: 1 on 06/21/2020 by Mark De Leon MD at [facility] Lens Left: Eye [employer] 06/23/2021 [id number] / [id number] / Insurance [facility] [place] [id number] [facility] MEDIC[facility] Care Teams Oyster Culturist Relationship Specialty Start Date End Date Hamlet Hernandez MD [address] [address] PCP - General FAMILY PRACTICE 06/21/20
== END 2025-01-27 13:29 | disposition home or self-care (01) ==
PROVIDERS: PCP Family Medicine; Visit Provider Physician Assistant Medical
DX: I47.10 Supraventricular tachycardia, unspecified (principal); I95.9 Hypotension, unspecified
CPT/HCPCS: 36415; 80048; 84443; 85025

== ENCOUNTER 2025-02-24 11:17 | Outpatient (CLI) | payer MEDICARE, BC, SELFPAY ==
--- OUTSIDE RECORDS SUMMARY | 2025-02-24 11:22 | XMS_ITS | Clinical Summary ---
Author Organization [facility] Address [address] [place] [address] Care Team Providers Care Shade Cutter Name Role Phone Hamlet Hernandez MD Primary Care Provider [phone] Allergies No known active allergies Medications lovastatin [...] this topic Medical Devices Implanted Type Area Manager Hospital Device Identifier Shelf Expiration Date Model / Serial / Lot Iol [employer] Zcboo - [id number] Implanted:Qty: 1 on 06/21/2020 by Mark De Leon MD at [facility] Lens Left: Eye [employer] 06/23/2021 [id number] / [id number] / Insurance [facility] [place] [id number] [facility] MEDICARE Care Teams Shade Cutter Relationship Specialty Start Date End Date Hamlet Hernandez MD [address] [address] PCP - General FAMILY PRACTICE 06/21/20
--- OUTSIDE RECORDS SUMMARY | 2025-02-24 11:22 | XMS_ITS | Continuity of Care Document ---
Author Organization [facility] Address [address] [place] [address] [address] [place] [address] Phone Care Team Providers Care Grinder Hardboard Name Role Phone Bryant OD, Jackson Unavailable Unavailable Advance Directives Directive Yes / No Effective Date File Name No Information Encounters Encounter Description Practice Location Reason(s) For Visit Diagnoses Date Provider Providers Copied on Encounter [facility], [id number] [place] [address] [address], [place], [id number], [place] tel:[phone] [facility] No Information Dec- 6-200 4 Bryant OD [place]. [address] , [address], [place], [address], [place]. tel:[phone] Family History Family Member Type Diagnosis Age [...]
--- OUTSIDE RECORDS SUMMARY | 2025-02-24 11:22 | XMS_ITS | Encounter Summary ---
Author Organization [facility] Address [address] [place] [address] Care Team Providers Care Loft Worker Name Role Phone Unavailable Primary Care Provider Unavailabl e Prior Encounters Date Type Department Care Team Description 09/11/2024 Travel 09/11/2024 2:15 PM PROOF SORTER Office Visit [facility] [address] [place] [phone] Malena Baker DMD Encounter for dental examination and cleaning without abnormal findings (Primary Dx) 02/26/2024 Travel 02/26/2024 12:00 PM CDT Office Visit [facility] [address] [place] [phone] Malena Baker DMD Encounter for dental examination and cleaning without abnormal findings (Primary Dx) 12/07/2022 Travel 12/07/2022 3:15 PM PROOF SORTER Office Visit [facility] [address] [place] [phone] Javon Braxton DDS 04/14/2022 10:00 AM CDT Office Visit [facility] [address] [place] [address] Federico Ceja DDS 04/14/2022 10:00 AM CDT Office Visit [facility] [address] [place] [address] 10/14/2021 Travel 10/14/2021 10:00 AM PROOF SORTER Office Visit [facility] [address] [place] [phone] Rosaura Randall, DMD 04/01/2021 Travel 04/01/2021 11:00 AM CDT Office Visit [facility] [address] [place] [phone] Rosaura Randall, DMD 10/27/2019 Converted CPS Chart Documents [facility] [address] [place] [address] <No scans attached> 10/27/2019 Converted 13x Documents [facility] [address] [place] [phone] <No scans attached> Last Filed Vital Signs [...] Description 04/06/2025 2:00 PM CDT Office Visit [facility] [address] [place] [address] Malena Baker, DMD [address] [place] [address] Procedures Procedure Name Priority Date/Time Associated Diagnosis Comments PERIODIC ORAL EVALUATION - ESTABLISHED PATIENT Routine 09/11/2024 2:15 PM PROOF SORTER Encounter for dental examination and cleaning without [...] ORAL HYGIENE INSTRUCTIONS Routine 2022 3:15 PM PROOF SORTER PROPHYLAXIS - ADULT Routine 12/07/2022 3 :15 PM PROOF SORTER BITEWINGS - FOUR RADIOGRAPHIC IMAGES Routine 12/07/2022 3:15 PM PROOF SORTER COMPREHENSIVE ORAL EVALUATION - NEW OR ESTABLISHED PATIENT Routine 12/07/2022 3:15 PM PROOF SORTER TOPICAL APPLICATION OF FLUORIDE VARNISH Routine 04/14/2022 10:00 AM CDT ORAL HYGIENE INSTRUCTIONS Routine 2021 10:00 AM CDT PROPHYLAXIS - ADULT Routine 04/14/2022 1 0:00 AM CDT PERIODIC ORAL EVALUATION - ESTABLISHED PATIENT Routine 04/14/2022 10:00 AM CDT 20 ROOT CANAL Routine 04/14/2022 12:00 AM CDT 20 PFM CROWN Routine 04/14/2022 12:00 AM CDT PROPHYLAXIS - ADULT Routine 10/14/2021 1 0:00 AM PROOF SORTER BITEWINGS - FOUR RADIOGRAPHIC IMAGES Routine 10/14/2021 10:00 AM PROOF SORTER ADDITIONAL X-RAY Routine 10/14/2021 10:0 0 AM PROOF SORTER ADDITIONAL X-RAY Routine 10/14/2021 10:0 0 AM PROOF SORTER ADDITIONAL X-RAY Routine 10/14/2021 10:0 0 AM PROOF SORTER ADDITIONAL X-RAY Routine 10/14/2021 10:0 0 AM PROOF SORTER ADDITIONAL X-RAY Routine 10/14/2021 10:0 0 AM PROOF SORTER SINGLE X-RAY Routine 10/14/2021 10:00 AM PROOF SORTER PERIODIC ORAL EVALUATION - ESTABLISHED PATIENT Routine 10/14/2021 10:00 AM PROOF SORTER OFFICE VISIT FOR OBSERVATION (DURING REGULARLY SCHEDULED [...] OTHER SERVICES PERFORMED Routine 12/17/2020 2:00 AM PROOF SORTER 18 RECEMENT CROWN Routine 11/18/2020 2:0 0 AM PROOF SORTER 18 LIMITED ORAL EVALUATION - PROBLEM FOCUSED Routine 11/18/2020 2:00 AM PROOF SORTER ADDITIONAL X-RAY Routine 11/18/2020 2:00 AM PROOF SORTER SINGLE X-RAY Routine 11/18/2020 2:00 AM PROOF SORTER OFFICE VISIT FOR OBSERVATION (DURING REGULARLY SCHEDULED HOURS) - NO OTHER SERVICES PERFORMED Routine 10/05/2020 2:00 AM PROOF SORTER 13 MOD AMALGAM 3 SURFACE Routine 020 2:00 AM PROOF SORTER 30 MO AMALGAM 2 SURFACE Routine 09/23/20 20 2:00 AM PROOF SORTER 29 DO AMALGAM 2 SURFACE Routine 09/23/20 20 2:00 AM PROOF SORTER 15 LO AMALGAM 2 SURFACE Routine 09/23/20 20 2:00 AM PROOF SORTER 31 O AMALGAM 1 SURFACE Routine 0 2:00 AM PROOF SORTER 19 CERECFIRED CROWNPOST Routine 09/23/20 20 2:00 AM PROOF SORTER 18 CERECFIRED CROWNPOST Routine 09/23/20 20 2:00 AM PROOF SORTER 14 CERECFIRED CROWNPOST Routine 09/23/20 20 2:00 AM PROOF SORTER 32 EXTRACTION, ERUPTED TOOTH OR EXPOSED ROOT (ELEVATION AND/OR FORCEPS REMOVAL) Routine 09/23/2020 2:00 AM PROOF SORTER 17 EXTRACTION, ERUPTED TOOTH OR EXPOSED ROOT (ELEVATION AND/OR FORCEPS REMOVAL) Routine 09/23/2020 2:00 AM PROOF SORTER 16 EXTRACTION, ERUPTED TOOTH OR EXPOSED ROOT (ELEVATION AND/OR FORCEPS REMOVAL) Routine 09/23/2020 2:00 AM PROOF SORTER 2 EXTRACTION, ERUPTED TOOTH OR EXPOSED ROOT (ELEVATION AND/OR FORCEPS REMOVAL) Routine 09/23/2020 2:00 AM PROOF SORTER ORAL HYGIENE INSTRUCTIONS Routine 2019 2:00 AM PROOF SORTER TOPICAL APPLICATION OF FLUORIDE VARNISH Routine 09/23/2020 2:00 AM PROOF SORTER PROPHYLAXIS - ADULT Routine 09/23/2020 2 :00 AM PROOF SORTER COMPREHENSIVE ORAL EVALUATION - NEW OR ESTABLISHED PATIENT Routine 09/23/2020 2:00 AM PROOF SORTER PANORAMIC RADIOGRAPHIC IMAGE Routine 09/23/2020 2:00 AM PROOF SORTER INTRAORAL - COMPREHENSIVE SERIES OF RADIOGRAPHIC IMAGES Routine 09/23/2020 2:00 AM PROOF SORTER INTRAORAL PHOTO Routine 09/23/2020 2:00 AM PROOF SORTER INTRAORAL PHOTO Routine 09/23/2020 2:00 AM PROOF SORTER INTRAORAL PHOTO Routine 09/23/2020 2:00 AM PROOF SORTER INTRAORAL PHOTO Routine 09/23/2020 2:00 AM PROOF SORTER Visit Diagnoses Diagnosis Start Date Encounter for dental examination and cleaning without abnormal findings 02/26/2024 Encounter for dental examination and cleaning without abnormal findings 09/11/[address] [place] [address] [id number] [employer] [place] [id number]
--- OUTSIDE RECORDS SUMMARY | 2025-02-24 11:22 | XMS_ITS | Data Portability ---
Author Organization [place] - [facility], Main Office Address [address] [place] [address] Care Team Providers Care Warp Coiler Name Role Phone AMBER CASTRO Primary Care Provider [phone] AMBER CASTRO Referring Provider Assessment Encounter Date Assessment Date Assessment LastModified by Organization Details LastModified Time 12/01/2024 12/01/2024 This note is dictated and transcribed by [employer]. Commercial Loan Assistant variances may occur. Despite proofreading, typographical errors may occur. Occasional wrong-word or '[id number]-q-[id number]' substitutions may have occurred due to the [...] US, foot [facility] [address] [facility], [place] [address] Patien t Name: IMMANUEL WADDELL Access ion #: [id number] Sex: F : 1949 8 Locati on: RAD Attend ing Physic tawnya: SAUD MCCLAIN Orderi ng Physic tawnya: RUKHSANASAUD QUESADA Exam Date: 2020 11:31 AM Exam [...] abnorm alitie s. Page 1 of 2 [facility] Name: IMMANUEL WADDELL Access ion #: [id number] Sex: F : 1949 8 Exam [...] 11:42 AM (CT) Page 2 of 2 [id number] [facility] [address] [place] [address], [address], 12/07/2022 00:02:52 Result Notes None recorded. 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 1687941173458 9101 Active 2021 Not Available [facility] 3 23:59:38 Soft tissue lesion of foot region 700852740 Active 2020 Not Available [facility] 3 23:59:39 Pain in left foot 1937831419092 07 Active 2020 Not Available [facility] 3 23:59:39 Acquired hallux limitus of right great toe 6383240484911 100 Active 2024 Saud Stack DPM [address], [place], [address] , [employer] 5 14:30:04 Peroneal tendinitis of right lower limb 9785238024752 09 Active 2024 Saud Stack DPM [address], [place], [address] , [employer] 5 14:30:12 Congenital pes planus 86154903 Active 2024 Saud Stack DPM [address], [place], [address] , [employer] 5 14:30:23 Hammer toe 733741694 Active 2024 Saud Stack DPM [address], [place], [address] , [employer] 5 14:30:40 Problem Notes None recorded. Procedures Surgical History Date Name Laterality Status Provider Name and Address Organization Details Recorded Time Magdalena Teeth completed Not Available [facility] 12/06/2022 23:57:20 Cataract Surgery completed Not Available [facility] 12/06/2022 23:57:20 Dilation and curettage completed Not Available [facility] 12/06/2022 23:57:20 Tubal Ligation completed Not Available [facility] 12/06/2022 23:57:20 lumpectomy of breast completed Not Available [facility] 12/06/2022 23:57:20 Hemorrhoidectomy completed Not Available [facility] 12/06/2022 23:57:20 Knee Replacement completed Mel [facility] 12/01/2024 14:20:09 Imaging Results Imaging Date Name Status LastModified by Organiz ation Details LastModified Time 10/06/2021 US, foot completed [id number] [facility] [address] [place], [address], 12/07/2022 00:02:52 Procedure Notes None recorded. Medical [...] /min 140 mm[Hg] 99 mm[Hg] Not Available [facility] 12/06/2022 23:58:21 Date Recorded Heart rate Systolic blood pressure Diastolic blood pressure Provider Name and Address Organization Details Last Updated DateTime 10/10/2021 74 /min 131 mm[Hg] 93 mm[Hg] Not [facility] 12/06/2022 23:58:21 Date Recorded Heart rate Respiratory rate Oxygen saturation Oxygen saturation in Arterial blood by Pulse oximetry Body height Body mass index (BMI) Body weight Systolic blood pressure Diastolic blood pressure Provider Name and Address Organization Details Last Updated DateTime 5 83 /min 14 /min 99 % 99 % 160.02 cm 27.5 kg/m2 37425.8 2 g 90 mm[Hg] 63 mm[Hg] Mel Smiley [place] - [facility] 5 14:08:36 Social History Question Answer Notes LastModified by [employer] Details LastModified Time Tobacco Smoking Status Never Smoker Not Available [facility] 12/06/2022 23:56:57 What Is Your Level Of Caffeine Consumption? Occasional [id number] Information not available 12/06/2022 What Was The Date Of Your Most Recent Tobacco Screening? 12/01/2024 [email or web address] Information not available 12/01/2024 Have You Ever Been Counseled For Unhealthy Alcohol Use? No [id number] 026 Information not available 12/06/2022 Has Tobacco Cessation Counseling Been Provided? No [id number] 026 Information not available 12/06/2022 Sex: Unknown Functional Status Question Answer Note LastModified by [employer] Details LastModified Time Do you use any illicit or recreational drugs? No [id number] 026 Information not available 12/06/2022 Do you or have you ever used any other forms of tobacco or nicotine? No [id number] 026 Information not available 12/06/2022 What is your level of alcohol consumption? Occasional [id number] 026 Information not available 12/06/2022 Mental Status None recorded. Family History Relationship Description Onset Age of this Age Resolved Age Notes LastModified by Organization Details LastModified Time Mother Diabetes mellitus [email or web address] Not available 2024 14:19:15 Brother Diabetes mellitus [id number] Not available 12/06/2022 23:57:23 Brother Hypertensive disorder [id number].361 [id number] Not available 12/06/2022 23:57:23 Brother Heart disease [id number].301 [id number] Not available 12/06/2022 23:57:23 Mother Arthritis [id number].662 [id number] Not available 12/06/2022 23:57:23 Mother Hypertensive disorder [id number].480 [id number] Not available 12/06/2022 23:57:23 Mother Family history of malignant neoplasm [id number] [id number] Not available 12/06/2022 23:57:23 Father Heart disease MIGRATION.811 [id number] Not available 12/06/2022 23:57:23 Maternal Grandmother Heart disease MIGRATION.899 [id number] Not available 12/06/2022 23:57:23 Maternal Grandfather Family history of malignant neoplasm MIGRATION.330 [id number] Not available 12/06/2022 23:57:23 Medical History Condition Response ARTHRITIS Y HEADACHES/MIGRAINES Y DIZZINESS Y RADIATION / CHEMOTHERAPY Y HIGH CHOLESTEROL / HYPERLIPIDEMIA Y CANCER: SPECIFY Y BLOOD CLOTS Y OSTEOPOROSIS Y BACK / NECK PROBLEMS Y Gynecological HistoryNo gynecological history recorded. Obstetrics History GPAL:G 0 P 0 0 0 0 Past Encounters Encounter ID Performer Location Encounter Start Date Encounter Closed Date Diagnosis/Indication Diagnosis SNOMED-CT Code Diagnosis ICD10 Code Diagnosis Note [id number] DON Rosa IGRATION_ DEFAULT_1 _1 , 09/12/2021 00:00:00 09/13/2021 11:44:51 [id number] DON Rosa IGRATION_ DEFAULT_1 _1 , 10/10/2021 00:00:00 10/10/2021 15:04:17 [id number] Saud Stack DPM [facility] Mynor Vyas [address] [place] [address] 12/01/2024 13:57:56 12/03/2024 12:06:18 Acquired hallux limitus of right great toe 9412568321 515698 M20.5X1 discuss treatment options in detail as well as x-rays new line patient defers surgeryCon tinue with conservati ve offloading Recommend Todd's extension on orthoticsF ollow-up as needed Hammer toe 173965443 M20 .41 discuss treatment options in detail as well as x-raysPati ent defers surgeryCon tinue with conservati ve offloading Follow-up as needed Peroneal t endinitis of right lower limb 6331574388 80789 M76.71 resolvedre commend orthotics Congenital pes planus 23 110913 Q66.51 recommend [facility] [place] orthotics and supportive shoe gearx-rays reviewed with the patient Health Concerns Section Related Observation LastModified by Organization Detai ls LastModified Time None Recorded Concern Status LastModified by Organization Details LastModified Time None Recorded Advance Directives Directive None Recorded Payers Encounter Date Sequence Insurance Name Policy Number Policy Toussaint Covered Member ID Toussaint Member ID Guarantor Name 12/01/2024 1 [place] Immanuel Waddell [id number] Immanuel Waddell 12/01/2024 2 [place] PROGRAM ([place]O) [address] Waddell [id number] Immanuel Waddell Notes Date Note Type Note Provider [...] feel better. Patient denies any other complaints. Saud Stack DPM [address] [facility], [address] [address], [place], [address], [facility] [email or web address] 12/01/2024 16:56:21 OBGyn Episode No OBEpisode recorded.
--- OUTSIDE RECORDS SUMMARY | 2025-02-24 11:22 | XMS_ITS | Clinical Summary ---
Author Organization [facility] [place] [address] [place] [address] Care Team Providers Care Stereotyper Apprentice Name Role Phone Unavailable Primary Care Provider [...] Description 04/06/2025 2:00 PM CDT Office Visit [facility] [address] [place] [address] Malena Baker, DMD [address] [place] [address] Health Maintenance Due Date Last Done Comments [...] - ESTABLISHED PATIENT Routine 09/11/2024 2:15 PM INNER TUBE INSERTER Encounter for dental examination and cleaning without abnormal findings PROPHYLAXIS - ADULT Routine 02/26/2024 1 2:00 PM CDT Encounter for dental examination and cleaning without abnormal findings PANORAMIC RADIOGRAPHIC IMAGE Routine 09/23/2020 2:00 AM INNER TUBE INSERTER INTRAORAL - COMPREHENSIVE SERIES OF RADIOGRAPHIC IMAGES Routine 09/23/2020 2:00 AM INNER TUBE INSERTER from Last 3 Months or Most Recently Relevant to Health Maintenance [place] [address] [place] [id number] [employer] HMO
--- OUTSIDE RECORDS SUMMARY | 2025-02-24 11:22 | XMS_ITS | Encounter Summary ---
Author Organization [facility] Address [address] [place] [address] Care Team Providers Care White Sugar Boiler Name Role Phone Mark De Leon MD Primary Care Provider [phone] Hamlet Hernandez MD Primary Care Provider [phone] Encounter Details Date Type Department Care Team (Late st Contact Info) Description 06/15/2020 Prep for Procedure [facility] [address] [place] [address] Mark De Leon MD [address] [facility] [address] [place] [address] Social History Tobacco Use Types [...] DETECTED NOT DETECTED 06/19/2020 4:01 PM CDT [facility] Comment: A Not Detected (negative) test result [...] providers and patients using the following websites: https://www.[employer].[place] [employer]/home/Covid-19/HCP/NAAT/fact-sheet2 https://www.[employer]licks[employer]ide/home/Covid-19/Patients/NAAT/ fact-sheet2 This test has been authorized by the FDA under an Emergency Use Authorization (EUA) for use by authorized laboratories. Due to the current public health emergency, [facility] is receiving a high volume of samples [...] about COVID-19 can be found at the [employer] website: www.[employer].[place] Depollution/Covid19. Test performed at [facility] [place] [address] [place] [address] Director: BABS SONG DO,MPH FIRST TEST UNKNOWN 06/18/2020 3:40 PM CDT [facility] EMPLOYED IN HEALTHCARE UNKNOWN 06/18/2020 3:40 PM CDT [facility] SYMPTOMATIC DEFINED BY CDC NO 06/18/2020 3:40 PM CDT [facility] DATE OF SYMPTOM ONSET NON-APPLICABLE 06/18/2020 3:40 PM CDT [facility] HOSPITALIZATION STATUS NO 06/18/2020 3:40 PM CDT [facility] PATIENT IN ICU NO 06/18/2020 3:40 PM CDT [facility] RESIDENT OF CONGREGATE CARE NO 06/18/2020 3:40 PM CDT [facility] NO 06/18/2020 3:40 PM CDT [facility] PATIENT'S RACE WHITE OR 06/18/2020 3:40 PM CDT [facility] ETHNICITY NONHISPANIC 06/18/2020 3:40 PM CDT [facility] SOURCE (QST) NASOPHARYNGEAL SWAB 06/18/2020 11:30 AM CDT [facility] NASOPHARYNGEAL SWAB / Unknown 06/18/2020 11:32 AM CDT us Mark De Leon MD MICROBIOLOGY - GENERAL ORDERAB LES Final Result [facility] [address] [place] [address], [place] [address], documented in this encounter Visit Diagnoses Diagnosis Preop testing- Primary Preoperative examination, unspecified documented in this encounter Additional Health Concerns Infection Onset Date Last Indicated Resolved Time COVID-19 Rule Out 06/18/2020 06/18/2020 06/19/2020 4:01 PM CDT documented as of this encounter Care Teams White Sugar Boiler Relationship Specialty [place] [address] [place] [address] PCP - General OPHTHALMOLOGY 06/16/20 06/20/20 Hamlet Hernandez MD [address] [place], [place] [id number] PCP - General FAMILY PRACTICE 06/21/20 documented as of this encounter
[2025-02-24 11:42] LABS: Basophils Absolute Auto 0.1 K/mm3 (0.0-0.1); Basophils Percent Auto 0.9 % (0.2-1.2); Eosinophils Absolute Auto 0.1 K/mm3 (0-0.3); Hematocrit 37.2 % (37.0-47.0); Hemoglobin 12.2 g/dL (12.0-15.0); Immature Granulocyte Absolute 0.02 K/mm3 (0.00-0.031); Immature Granulocyte Percent A 0.3 % (0-0.5); Mean Corpuscular HGB Conc 32.8 g/dl (32-36); Mean Corpuscular Volume 97.6 fl (80-100); Mean Platelet Volume 9.4 fl (7.4-10.4); Monocytes Absolute Auto 0.8 K/mm3 (0.1-0.6); Monocytes Percent Auto 10.8 % (2.6-8.5); Neutrophils Absolute Auto 3.5 K/mm3 (1.3-6.7); Platelet Count Result 288 k/mm3 (150-375); Red Blood Count 3.81 M/mm3 (4.2-5.4); Red Cell Distribution Width 14.6 % (11.5-14.5)
[2025-02-24 11:54] LABS: Anion Gap 7 mmol/L (4-12); Blood Urea Nitrogen 17 mg/dL (7-17); Calcium 10.1 mg/dL (8.4-10.2); Carbon Dioxide 27 mmol/L (22-30); Chloride 102 mmol/L (98-107); Estimated Glomerular Filt Rate 46; Glucose 97 mg/dL (65-110); Potassium 4.3 mmol/L (3.4-5.0); Sodium 136 mmol/L (137-145)
== END 2025-02-24 11:18 | disposition home or self-care (01) ==
LOC: ANHLAB 11:18
PROVIDERS: PCP Family Medicine; Visit Provider Physician Assistant Medical
DX: E87.1 Hypo-osmolality and hyponatremia (principal); E83.51 Hypocalcemia; D64.9 Anemia, unspecified
CPT/HCPCS: 36415; 80048; 85025

== ENCOUNTER 2025-03-17 14:21 | Outpatient (CLI) | payer MEDICARE, BC, SELFPAY ==
[2025-03-17 15:27] LABS: Anion Gap 5 mmol/L (4-12); Blood Urea Nitrogen 15 mg/dL (7-17); Calcium 9.1 mg/dL (8.4-10.2); Carbon Dioxide 28 mmol/L (22-30); Chloride 105 mmol/L (98-107); Estimated Glomerular Filt Rate 57; Glucose 93 mg/dL (65-110); Potassium 3.7 mmol/L (3.4-5.0); Sodium 138 mmol/L (137-145)
--- OUTSIDE RECORDS SUMMARY | 2025-03-17 15:49 | XMS_ITS | Encounter Summary ---
Author Organization [facility] Health Address [address] [place] [address] Care Team Providers Care Site Engineer Name Role Phone Unavailable Primary Care Provider Unavailabl e Prior Encounters Date Type Department Care Team Description 09/11/2024 Travel 09/11/2024 2:15 PM ENVELOPE ADJUSTER Office Visit [facility] [address] [place] [address] Malena Baker DMD Encounter for dental examination and cleaning without abnormal findings (Primary Dx) 02/26/2024 Travel 02/26/2024 12:00 PM CDT Office Visit [facility] [address] [place] [address] Malena Baker DMD Encounter for dental examination and cleaning without abnormal findings (Primary Dx) 12/07/2022 Travel 12/07/2022 3:15 PM ENVELOPE ADJUSTER Office Visit [facility] [address] [place] [address] Javon Braxton DD 04/14/2022 10:00 AM CDT Office Visit [facility] [address] [place] [address] Federico Ceja DDS 04/14/2022 10:00 AM CDT Office Visit [facility] [address] [place] [address] Hailey Garibay [facility] 10/14/2021 Travel 10/14/2021 10:00 AM ENVELOPE ADJUSTER Office Visit [facility] [address] [place] [address] Rosaura Randall, DMD 04/01/2021 Travel 04/01/2021 11:00 AM CDT Office Visit [facility] [address] [place] [address] Rosaura Randall, DMD 10/27/2019 Converted CPS Chart Documents [facility] [address] [place] [address] <No scans attached> 10/27/2019 Converted 13x Documents [facility] [address] [place] [address] <No scans attached> Last Filed Vital Signs [...] Description 04/06/2025 2:00 PM CDT Office Visit [facility] [address] [place] [address] Malena Baker, DMD [address] [place] [address] Procedures Procedure Name Priority Date/Time Associated Diagnosis Comments PERIODIC ORAL EVALUATION - ESTABLISHED PATIENT Routine 09/11/2024 2:15 PM ENVELOPE ADJUSTER Encounter for dental examination and cleaning without [...] ORAL HYGIENE INSTRUCTIONS Routine 2022 3:15 PM ENVELOPE ADJUSTER PROPHYLAXIS - ADULT Routine 12/07/2022 3 :15 PM ENVELOPE ADJUSTER BITEWINGS - FOUR RADIOGRAPHIC IMAGES Routine 12/07/2022 3:15 PM ENVELOPE ADJUSTER COMPREHENSIVE ORAL EVALUATION - NEW OR ESTABLISHED PATIENT Routine 12/07/2022 3:15 PM ENVELOPE ADJUSTER TOPICAL APPLICATION OF FLUORIDE VARNISH Routine 04/14/2022 10:00 AM CDT ORAL HYGIENE INSTRUCTIONS Routine 2021 10:00 AM CDT PROPHYLAXIS - ADULT Routine 04/14/2022 1 0:00 AM CDT PERIODIC ORAL EVALUATION - ESTABLISHED PATIENT Routine 04/14/2022 10:00 AM CDT 20 ROOT CANAL Routine 04/14/2022 12:00 AM CDT 20 PFM CROWN Routine 04/14/2022 12:00 AM CDT PROPHYLAXIS - ADULT Routine 10/14/2021 1 0:00 AM ENVELOPE ADJUSTER BITEWINGS - FOUR RADIOGRAPHIC IMAGES Routine 10/14/2021 10:00 AM ENVELOPE ADJUSTER ADDITIONAL X-RAY Routine 10/14/2021 10:0 0 AM ENVELOPE ADJUSTER ADDITIONAL X-RAY Routine 10/14/2021 10:0 0 AM ENVELOPE ADJUSTER ADDITIONAL X-RAY Routine 10/14/2021 10:0 0 AM ENVELOPE ADJUSTER ADDITIONAL X-RAY Routine 10/14/2021 10:0 0 AM ENVELOPE ADJUSTER ADDITIONAL X-RAY Routine 10/14/2021 10:0 0 AM ENVELOPE ADJUSTER SINGLE X-RAY Routine 10/14/2021 10:00 AM ENVELOPE ADJUSTER PERIODIC ORAL EVALUATION - ESTABLISHED PATIENT Routine 10/14/2021 10:00 AM ENVELOPE ADJUSTER OFFICE VISIT FOR OBSERVATION (DURING REGULARLY SCHEDULED [...] OTHER SERVICES PERFORMED Routine 12/17/2020 2:00 AM ENVELOPE ADJUSTER 18 RECEMENT CROWN Routine 11/18/2020 2:0 0 AM ENVELOPE ADJUSTER 18 LIMITED ORAL EVALUATION - PROBLEM FOCUSED Routine 11/18/2020 2:00 AM ENVELOPE ADJUSTER ADDITIONAL X-RAY Routine 11/18/2020 2:00 AM ENVELOPE ADJUSTER SINGLE X-RAY Routine 11/18/2020 2:00 AM ENVELOPE ADJUSTER OFFICE VISIT FOR OBSERVATION (DURING REGULARLY SCHEDULED HOURS) - NO OTHER SERVICES PERFORMED Routine 10/05/2020 2:00 AM ENVELOPE ADJUSTER 13 MOD AMALGAM 3 SURFACE Routine 020 2:00 AM ENVELOPE ADJUSTER 30 MO AMALGAM 2 SURFACE Routine 09/23/20 20 2:00 AM ENVELOPE ADJUSTER 29 DO AMALGAM 2 SURFACE Routine 09/23/20 20 2:00 AM ENVELOPE ADJUSTER 15 LO AMALGAM 2 SURFACE Routine 09/23/20 20 2:00 AM ENVELOPE ADJUSTER 31 O AMALGAM 1 SURFACE Routine 0 2:00 AM ENVELOPE ADJUSTER 19 CERECFIRED CROWNPOST Routine 09/23/20 20 2:00 AM ENVELOPE ADJUSTER 18 CERECFIRED CROWNPOST Routine 09/23/20 20 2:00 AM ENVELOPE ADJUSTER 14 CERECFIRED CROWNPOST Routine 09/23/20 20 2:00 AM ENVELOPE ADJUSTER 32 EXTRACTION, ERUPTED TOOTH OR EXPOSED ROOT (ELEVATION AND/OR FORCEPS REMOVAL) Routine 09/23/2020 2:00 AM ENVELOPE ADJUSTER 17 EXTRACTION, ERUPTED TOOTH OR EXPOSED ROOT (ELEVATION AND/OR FORCEPS REMOVAL) Routine 09/23/2020 2:00 AM ENVELOPE ADJUSTER 16 EXTRACTION, ERUPTED TOOTH OR EXPOSED ROOT (ELEVATION AND/OR FORCEPS REMOVAL) Routine 09/23/2020 2:00 AM ENVELOPE ADJUSTER 2 EXTRACTION, ERUPTED TOOTH OR EXPOSED ROOT (ELEVATION AND/OR FORCEPS REMOVAL) Routine 09/23/2020 2:00 AM ENVELOPE ADJUSTER ORAL HYGIENE INSTRUCTIONS Routine 2019 2:00 AM ENVELOPE ADJUSTER TOPICAL APPLICATION OF FLUORIDE VARNISH Routine 09/23/2020 2:00 AM ENVELOPE ADJUSTER PROPHYLAXIS - ADULT Routine 09/23/2020 2 :00 AM ENVELOPE ADJUSTER COMPREHENSIVE ORAL EVALUATION - NEW OR ESTABLISHED PATIENT Routine 09/23/2020 2:00 AM ENVELOPE ADJUSTER PANORAMIC RADIOGRAPHIC IMAGE Routine 09/23/2020 2:00 AM ENVELOPE ADJUSTER INTRAORAL - COMPREHENSIVE SERIES OF RADIOGRAPHIC IMAGES Routine 09/23/2020 2:00 AM ENVELOPE ADJUSTER INTRAORAL PHOTO Routine 09/23/2020 2:00 AM ENVELOPE ADJUSTER INTRAORAL PHOTO Routine 09/23/2020 2:00 AM ENVELOPE ADJUSTER INTRAORAL PHOTO Routine 09/23/2020 2:00 AM ENVELOPE ADJUSTER INTRAORAL PHOTO Routine 09/23/2020 2:00 AM ENVELOPE ADJUSTER Visit Diagnoses Diagnosis Start Date Encounter for dental examination and cleaning without abnormal findings 02/26/2024 Encounter for dental examination and cleaning without abnormal findings 09/11/2024 [address] [facility] [place] [address] [id number] [employer] [address] [place] [place] [id number]
--- OUTSIDE RECORDS SUMMARY | 2025-03-17 15:49 | XMS_ITS | Continuity of Care Document ---
Author Organization [facility] Address [address] [place] [address] [address] [place] [address] Phone Care Team Providers Care Cargo Broker Name Role Phone Bryant OD, Jackson Unavailable Unavailable Advance Directives Directive Yes / No Effective Date File Name No Information Encounters Encounter Description Practice Location Reason(s) For Visit Diagnoses Date Provider Providers Copied on Encounter [facility], [address] [place] [address] [address], [place], [place], [id number], [place] tel:[phone] [facility] [place] No Information Dec- 6-200 4 Bryant OD Jackson. [address] , [address], [place], [address], [place]. tel:[phone] Family History Family Member Type Diagnosis Age At Onset No Information Payers Payer name Insurance type Covered democrat ID Authoriza tion(s) No Information Social History [...]
--- OUTSIDE RECORDS SUMMARY | 2025-03-17 15:49 | XMS_ITS | Clinical Summary ---
Author Organization [facility] Health Address [address] [place] [address] Care Team Providers Care Jumpbasting Collar Baster Name Role Phone Unavailable Primary Care Provider [...] Description 04/06/2025 2:00 PM CDT Office Visit [facility] [address] [place] [address] Malnea Baker, DMD [address] [place] [address] Health Maintenance Due Date Last Done Comments [...] - ESTABLISHED PATIENT Routine 09/11/2024 2:15 PM JINRIKISHA DRIVER Encounter for dental examination and cleaning without abnormal findings PROPHYLAXIS - ADULT Routine 02/26/2024 1 2:00 PM CDT Encounter for dental examination and cleaning without abnormal findings PANORAMIC RADIOGRAPHIC IMAGE Routine 09/23/2020 2:00 AM JINRIKISHA DRIVER INTRAORAL - COMPREHENSIVE SERIES OF RADIOGRAPHIC IMAGES Routine 09/23/2020 2:00 AM JINRIKISHA DRIVER from Last 3 Months or Most Recently Relevant to Health Maintenance Insurance [facility] [place] [id number] [employer] HMO
--- OUTSIDE RECORDS SUMMARY | 2025-03-17 15:49 | XMS_ITS | Data Portability ---
Author Organization [place] - [facility], Main Office Address [address] [place] [address] Care Team Providers Care Export Coordinator Name Role Phone AMBER CASTRO Primary Care Provider [phone] AMBER CASTRO Referring Provider Assessment Encounter Date Assessment Date Assessment LastModified by Organization Details LastModified Time 12/01/2024 12/01/2024 This note is dictated and transcribed by [employer]. Hide Measuring Machine Operator variances may occur. Despite proofreading, typographical errors may occur. Occasional wrong-word or 'xckdf-s-xfux' substitutions may have occurred due to the [...] US, foot [facility] [address] [facility], [place] [address] Patien t Name: TITA WADDELL Access ion #: [id number] Sex: F : 1949 8 Locati [...] abnorm alitie s. Page 1 of 2 [facility] Name: TITA WADDELL Access ion #: [id number] Sex: F : 1949 8 Exam [...] 11:42 AM (CT) Page 2 of 2 [facility].[id number] [facility] (Imaging) [address] [place] [address], [address], 12/07/2022 00:02:52 Result Notes None recorded. 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 5 14:30:04 Peroneal tendinitis of right lower limb 8376736568023 09 Active 2024 Ignacio Stack DPM [address], [place], [address] , [employer] 5 14:30:12 Congenital pes planus 42444801 Active 2024 Ignacio Stack DPM [address], [place], [address] , [employer] 5 14:30:23 Hammer toe 031451952 Active 2024 Ignacio Stack DPM [address], [place], [address] , [employer] 5 14:30:40 Problem Notes None recorded. Procedures Surgical History Date Name Laterality Status Provider Name and Address Organization Details Recorded Time [place] Te[facility] completed Not Available [facility] 12/06/2022 23:57:20 Cataract Surgery completed Not Available [facility] 12/06/2022 23:57:20 Dilation and curettage completed Not Available [facility] 12/06/2022 23:57:20 Tubal Ligation completed Not Available [facility] 12/06/2022 23:57:20 lumpectomy of breast completed Not Available [facility] 12/06/2022 23:57:20 [facility]rhoidectomy completed [facility] Available [facility] 12/06/2022 23:57:20 Knee Replacement completed Mel Jackson [employer] 12/01/2024 14:20:09 Imaging Results None recorded. Procedure Notes None recorded. Medical Equipment None [...] /min 131 mm[Hg] 93 mm[Hg] Not Available [facility] 12/06/2022 23:58:21 Date Recorded Heart rate Respiratory rate Oxygen saturation Oxygen saturation in Arterial blood by Pulse oximetry Body height Body mass index (BMI) Body weight Systolic blood pressure Diastolic blood pressure Provider Name and Address Organization Details Last Updated DateTime 83 /min 14 /min 99 % 99 % 160.02 cm 27.5 kg/m2 61449.8 2 g 90 mm[Hg] 63 mm[Hg] Mel Jackson [employer] [facility] 14:08:36 Date Recorded Heart rate Systolic blood pressure Diastolic blood pressure Provider Name and Address Organization Details Last Updated DateTime 09/12/2021 71 /min 140 mm[Hg] 99 mm[Hg] Not Available [facility] 12/06/2022 23:58:21 Social History Question Answer Notes LastModified by [employer] Details LastModified Time Tobacco Smoking Status Never Smoker Not Available [facility] 12/06/2022 23:56:57 What Is Your Level Of Caffeine Consumption? Occasional [id number] Information not available 12/06/2022 What Was The Date Of Your Most Recent Tobacco Screening? 12/01/2024 [email or web address] Information not available 12/01/2024 Have You Ever Been Counseled For Unhealthy Alcohol Use? No [id number] Information not available 12/06/2022 Has Tobacco Cessation Counseling Been Provided? No [id number] 026 Information not available 12/06/2022 Sex: Unknown Functional Status Question Answer Note LastModified by [employer] Details LastModified Time Do you use any illicit or recreational drugs? No [id number] Information not available 12/06/2022 Do you or have you ever used any other forms of tobacco or nicotine? No [id number] Information not available 12/06/2022 What is your level of alcohol consumption? Occasional [id number] Information not available 12/06/2022 Mental Status None recorded. Family History Relationship Description Onset Age of this Age Resolved Age Notes LastModified by Organization Details LastModified Time Mother Diabetes mellitus [email or web address] Not available 2024 14:19:15 Brother Diabetes mellitus [id number] Not available 12/06/2022 23:57:23 Brother Hypertensive disorder [id number] Not available 12/06/2022 23:57:23 Brother Heart disease [id number].587 [id number] Not available 12/06/2022 23:57:23 Mother Arthritis [id number] Not available 12/06/2022 23:57:23 Mother Hypertensive disorder [id number] Not available 12/06/2022 23:57:23 Mother Family history of malignant neoplasm [id number] Not available 12/06/2022 23:57:23 Father Heart disease [id number].169 [id number] Not available 12/06/2022 23:57:23 Maternal Grandmother Heart disease [id number] [id number] Not available 12/06/2022 23:57:23 Maternal Grandfather Family history of malignant neoplasm [id number] Not available 12/06/2022 23:57:23 Medical History Condition Response CANCER: SPECIFY Y ARTHRITIS Y HEADACHES/MIGRAINES Y BLOOD CLOTS Y DIZZINESS Y OSTEOPOROSIS Y BACK / NECK PROBLEMS Y RADIATION / CHEMOTHERAPY Y HIGH CHOLESTEROL / HYPERLIPIDEMIA Y Gynecological HistoryNo gynecological history recorded. Obstetrics History GPAL:G 0 P 0 0 0 0 Past Encounters Encounter ID Performer Location Encounter Start Date Encounter Closed Date Diagnosis/Indication Diagnosis SNOMED-CT Code Diagnosis ICD10 Code Diagnosis Note [id number] Ignacio Stack DPM _RAMAKRISHNACASSANDRA_[facility]al[facility] IGRATION_ DEFAULT_1 _1 , 09/12/2021 00:00:00 09/13/2021 11:44:51 [id number] DON RosaCASSANDRA_[facility]GR[facility]_ DEFAULT_1 _1 , 10/10/2021 00:00:00 10/10/2021 15:04:17 [id number] Ignacio Stack DPM [facility] [place] [address] [facility] [address] [place] [address] 12/01/2024 13:57:56 12/03/2024 12:06:18 Acquired hallux limitus of right great toe 6253025695 314703 M20.5X1 discuss treatment options in detail as well as x-rays new line patient defers surgeryCon tinue with conservati ve offloading Recommend Todd's extension on orthoticsF ollow-up as needed Hammer toe 180130641 M20 .41 discuss treatment options in detail as well as x-raysPati ent defers surgeryCon tinue with conservati ve offloading Follow-up as needed Peroneal t endinitis of right lower limb 3620547282 21895 M76.71 resolvedre commend orthotics Congenital pes planus 23 645152 Q66.51 recommend Powerstep Cordova orthotics and supportive shoe gearx-rays reviewed with the patient Health Concerns Section Related Observation LastModified by Organization Detai ls LastModified Time None Recorded Concern Status LastModified by Organization Details LastModified Time None Recorded Advance Directives Directive None Recorded Payers Encounter Date Sequence Insurance Name Policy Number Policy Toussaint Covered Member ID Toussaint Member ID Guarantor Name 12/01/2024 1 [place] Tita Waddell [id number] Tita Waddell 12/01/2024 2 [facility] (PPO) [address] Waddell [id number] Tita Waddell Notes Date Note Type Note [...] any other complaints. Ignacio Stack DPM [address] [address], [place], [address], [facility] 12/01/2024 16:56:21 OBGyn Episode No OBEpisode recorded.
== END 2025-03-17 14:22 | disposition home or self-care (01) ==
PROVIDERS: PCP Family Medicine; Visit Provider Physician Assistant Medical
DX: N28.9 Disorder of kidney and ureter, unspecified (principal)
CPT/HCPCS: 36415; 80048

== ENCOUNTER 2025-05-11 09:01 | Emergency (ER) | payer MEDICARE, BC, SELFPAY ==
--- NOTE | 2025-05-11 09:10 | ED.EAR ---
HPI - Ear Problem General Chief complaint: Ear Stated complaint: ear pain Time Seen by Provider: 05/11/25 09:10 Source: patient Mode of arrival: ambulatory Limitations: no limitations History of Present Illness HPI Narrative: 74 y/o female presented for c/o right ear fullness, with a bubbling/crackling sound. Onset 3 weeks after trip to [place]. Denies ear pain. Says she has discussed this with her pcp and was taking Claritin D per their instructions, without much improvement so she stopped. Pt then took abx without improvement. Endorses symptoms are intermittent, with occasional dizziness or muffled hearing. Denies n/v/d/f/c. MD Complaint: ear pain Related Data Home Medications ?Medication ?Instructions ?Recorded ?Confirmed ?Last Taken ?Type vitamins A,C,G-viyg-iudwrd 4,296 2 cap PO DAILY 08/30/22 04/29/25 10/03/24 History mcg-226 mg-90 mg capsule (PreserVision AREDS) acetaminophen 650 mg 650 mg PO Q12H PRN Pain 10/17/23 04/29/25 09/07/24 History tablet,extended release (Tylenol Arthritis Pain) diphenhydramine HCl 25 mg capsule 25 mg PO HS PRN Insomnia 09/10/24 04/29/25 09/07/24 History (Benadryl) multivitamin with minerals 1 cap PO DAILY 03/09/25 04/29/25 Unknown History Allergies Allergy/AdvReac Type Severity Reaction Status Date / Time No Known Allergies Allergy Verified 05/11/25 09:16 Review of Systems Review of Systems: CONSTITUTIONAL: Denies malaise, chills, or fever. EYES: Denies visual changes, redness, or discharge. ENT: Denies rhinorrhea, congestion, sinus pain, and sore throat. Reports ear fullness CARDIOVASCULAR: Denies chest pain, palpitations, or edema. RESPIRATORY: Denies cough or dyspnea. GASTROINTESTINAL: Denies abdominal pain, nausea, vomiting, diarrhea SKIN: Denies rash or itching. MUSCULOSKELETAL: Denies myalgia. NEUROLOGIC: Denies headache. All systems reviewed & are unremarkable except as noted in HPI and below PMFSH Past Medical History Medical History History of left breast cancer Paroxysmal SVT (supraventricular tachycardia) Acute effusion of both middle ears Cerumen impaction Ankle pain, right Adult BMI 25.0-25.9 kg/sq m BMI 26.0-26.9,adult Chronic deep vein thrombosis (DVT) of left lower extremity MORALES (dyspnea on exertion) Palpitations with regular cardiac rhythm Hypersomnia Mixed hyperlipidemia Obstructive sleep apnea Screening for thyroid disorder Sleep apnea in adult Varicose vein of leg Vertigo Surgical History Surgical History H/O left cataract extraction History of tubal ligation Family History Family History Mother Hypertension Carcinoma of colon Family history of diabetes mellitus in first degree relative Family history of malignant neoplasm of breast in first degree relative Patient's mother is , Onset Age: 82 Grandparent Family history of coronary artery disease Acute myocardial infarction Malignant neoplasm of prostate Sibling Family history of diabetes mellitus in first degree relative Family history of colonic diverticulitis Family history of heart disease in male family member before age 55 Diabetes mellitus Family history of congestive heart failure Patient's brother is in good health Family history of sleep apnea Father Family history of emphysema Family history of renal failure, Onset Age: 79 Family history of congenital heart disease Family history of malignant neoplasm of urinary bladder Family history of congestive heart failure Sibling , heart failure No problems noted. Other Family history of malignant neoplasm of male breast Social History Social History Smoking status: Never smoker Second hand tobacco smoke exposure: Yes Additional smoking assessment comments: DENIES ANY FORM OF TOBACCO USE Alcohol intake: current Drinks per week: 2 Substance use: never Substance use type: does not use Do You Feel Safe in your Home?: Yes Lack of Transportation: No Lack of Food: Never True Current Housing: I Have Housing Concerned About Future Housing: No Difficulty Paying Gas/Electric Bills: No Difficulty Paying for Meds: No Currently Unemployed: No Education: Bachelor's Degree Difficulty w/ Childcare or Family Care: No Living arrangements: with family Additional living arrangements comments: HUSB 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 There is no relevant family history pertinent to the presenting complaint Exam Narrative: GENERAL: Well-appearing EYES: conjunctivae clear ENT: Nares clear. Mucous membranes moist. Bilateral TMs appear normal with normal light reflex, canals not erythematous, no drainage, no tragal tenderness. Oropharynx not erythematous without lesions. no drooling, no hoarseness, no trismus, uvula midline. NECK: Supple. No lymphadenopathy CHEST: Clear to auscultation, breath sounds equal. HEART: Regular rate and rhythm. SKIN: Warm, dry, no rash. NEURO: Alert and oriented x3. PSYCH: Normal mood and affect Course Course Emergency Course: Patient is aware of diagnosis, understands and agrees to treatment plan. Anticipatory guidance given. Patient agrees to follow-up as directed and is aware of reasons to seek care at the emergency department. Portions of this record may have been created with voice recognition software Level of Care: Express Care Visit Vital Signs Vital signs: Vital Signs Temperature 97.7 F 05/11/25 09:11 Pulse Rate 80 05/11/25 09:11 Respiratory Rate 16 05/11/25 09:11 Blood Pressure 99/71 L 05/11/25 09:11 Pulse Oximetry 100 05/11/25 09:11 Oxygen Delivery Room Air 05/11/25 09:11 Temperature 97.7 F 05/11/25 09:11 Pulse Rate 80 05/11/25 09:11 Respiratory Rate 16 05/11/25 09:11 Blood Pressure 99/71 L 05/11/25 09:11 Pulse Oximetry 100 05/11/25 09:11 Oxygen Delivery Room Air 05/11/25 09:11 Reviewed Medical Decision Making MDM Narrative Medical decision making narrative: Discussed physical exam findings, no apparent effusion or infection noted. Advised supportive measures and signs/symptoms to go to the ER. Patient is appropriate for outpatient treatment and follow-up with ENT. Differential Diagnosis Differential Diagnosis: Coronavirus, strep pharyngitis, allergic rhinitis, upper respiratory tract infection, sinusitis, rhinosinusitis, nasopharyngitis, viral pharyngitis, otitis media, otitis externa, eustachian tube dysfunction, foreign body, cerumen impaction. Vital Signs Vital Signs: Vital Signs Temperature 97.7 F 05/11/25 09:11 Pulse Rate 80 05/11/25 09:11 Respiratory Rate 16 05/11/25 09:11 Blood Pressure 99/71 L 05/11/25 09:11 Pulse Oximetry 100 05/11/25 09:11 Oxygen Delivery Room Air 05/11/25 09:11 Temperature 97.7 F 05/11/25 09:11 Pulse Rate 80 05/11/25 09:11 Respiratory Rate 16 05/11/25 09:11 Blood Pressure 99/71 L 05/11/25 09:11 Pulse Oximetry 100 05/11/25 09:11 Oxygen Delivery Room Air 05/11/25 09:11 Discharge Plan Discharge Clinical Impression: Eustachian tube dysfunction Patient Disposition: Home Condition: Stable Instructions: Antibiotic Form, Barotrauma (ED) Additional Instructions: Recommendations: antihistamine such as Zyrtec, Claritin, or Dennise along with Flonase nasal spray, 1 spray in each nostril once daily until symptoms improve You can increase humidity of the air at home. Follow up with ENT Please schedule a follow-up visit with your personal physician If your symptoms persist, change or worsen significantly, go to the emergency department for further evaluation. Patient Language: Chilean Prescriptions: No Action PreserVision AREDS [phone] reli-wh-jebw Capsule 2 cap PO DAILY multivitamin with minerals Capsule 1 cap PO DAILY diphenhydramine HCl [Benadryl] 25 mg Capsule 25 mg PO HS PRN (Reason: Insomnia) acetaminophen [Tylenol Arthritis Pain] 650 mg Tablet Extended Release 650 mg PO Q12H PRN (Reason: Pain) Follow-up/Referrals: Guillermo Snyder MD [Physician] - Hamlet Hernandez MD [Primary Care Provider] - Time of Disposition: :
[2025-05-11 09:11] VITALS: BP 99/71; PULSE 80; RESP 16; TEMP 36.5; O2SAT 100
--- OUTSIDE RECORDS SUMMARY | 2025-05-11 09:14 | XMS_ITS | Encounter Summary ---
Author Organization [facility] Address [address] [place] [address] Care Team Providers Care Passenger Vessel Chef Name Role Phone Mark De Leon MD Primary Care Provider [phone] Hamlet Hernandez MD Primary Care Provider [phone] Encounter Details Date Type Department Care Team (Late st Contact Info) Description 06/15/2020 Prep for Procedure [facility] [address] [place] [address] Mark De Leon MD [address] [facility] [address] [place] [address] Social History Tobacco Use Types [...] DETECTED NOT DETECTED 06/19/2020 4:01 PM CDT [facility] Comment: A Not Detected [...] providers and patients using the following websites: https://www.[employer].Centice/home/Covid-19/HCP/NAAT/fact-sheet2 https://www.[employer]/home/Covid-19/Patients/NAAT/ fact-sheet2 This test has been authorized by the FDA under an Emergency Use Authorization (EUA) for use by authorized laboratories. Due to the current public health emergency, [facility] is receiving a high volume of samples [...] about COVID-19 can be found at the [facility] website: www.[employer]ceable.Centice/Covid19. Test performed at [facility] [address] [place] [address] Director: BABS SONG DO,MPH FIRST TEST UNKNOWN 06/18/2020 3:40 PM CDT [facility] EMPLOYED IN HEALTHCARE UNKNOWN 06/18/2020 3:40 PM CDT [facility] SYMPTOMATIC DEFINED BY CDC NO 06/18/2020 3:40 PM CDT [facility] DATE OF SYMPTOM ONSET NON-APPLICABLE 06/18/2020 3:40 PM CDT [facility] HOSPITALIZATION STATUS NO 06/18/2020 3:40 PM CDT [facility] PATIENT IN ICU NO 06/18/2020 3:40 PM CDT [facility] RESIDENT OF CONGREGATE CARE NO 06/18/2020 3:40 PM CDT [facility] NO 06/18/2020 3:40 PM CDT [facility] PATIENT'S RACE WHITE OR 06/18/2020 3:40 PM CDT [facility] ETHNICITY NONHISPANIC 06/18/2020 3:40 PM CDT [facility] SOURCE (QST) NASOPHARYNGEAL SWAB 06/18/2020 11:30 AM CDT [facility] NASOPHARYNGEAL SWAB / Unknown 06/18/2020 11:32 AM CDT us Mark De Leon MD MICROBIOLOGY - GENERAL ORDERAB LES Final Result [facility] [address] [place] [address], [place] [address], documented in this encounter Visit Diagnoses Diagnosis Preop testing- Primary Preoperative examination, unspecified documented in this encounter Additional Health Concerns Infection Onset Date Last Indicated Resolved Time COVID-19 Rule Out 06/18/2020 06/18/2020 06/19/2020 4:01 PM CDT documented as of this encounter Care Teams Passenger Vessel Chef Relationship Specialty [place] [address] [place] [address] PCP - General OPHTHALMOLOGY 06/16/20 06/20/20 Hamlet Hernandez MD [address] [place], [place] [id number] PCP - General FAMILY PRACTICE 06/21/20 documented as of this encounter
--- OUTSIDE RECORDS SUMMARY | 2025-05-11 09:14 | XMS_ITS | Encounter Summary ---
Author Organization [facility] Health Address [address] [place] [address] Care Team Providers Care Chief Of Staff Doctor Name Role Phone Unavailable Primary Care Provider Unavailabl e Prior Encounters Date Type Department Care Team Description 03/26/2025 1:00 PM CDT Office Visit [facility] [address] [place] [phone] Encounter for dental examination and cleaning without abnormal findings (Primary Dx) 03/26/2025 1:00 PM CDT Office Visit [facility] [address] [place] [phone] Malena Baker DMD Encounter for dental examination and cleaning without abnormal findings (Primary Dx) 09/11/2024 Travel 09/11/2024 2:15 PM DIETETIC TECHNICIAN Office Visit [facility] [address] [place] [phone] Malena Baker DMD Encounter for dental examination and cleaning without abnormal findings (Primary Dx) 02/26/2024 Travel 02/26/2024 12:00 PM CDT Office Visit [facility] [address] [place] [phone] Malena Baker DMD Encounter for dental examination and cleaning without abnormal findings (Primary Dx) 12/07/2022 Travel 12/07/2022 3:15 PM DIETETIC TECHNICIAN Office Visit [facility] [address] [place] [phone] Javon Braxton DDS 04/14/2022 10:00 AM CDT Office Visit [facility] [address] [place] [phone] Federico Ceja DDS 04/14/2022 10:00 AM CDT Office Visit [facility] [address] [place] [phone] [address] Garibay RD 10/14/2021 Travel 10/14/2021 10:00 AM DIETETIC TECHNICIAN Office Visit [facility] [address] [place] [phone] Rosaura Randall, DMD 04/01/2021 Travel 04/01/2021 11:00 AM CDT Office Visit [facility] [address] [place] [phone] Rosaura Randall, DMD 10/27/2019 Converted CPS Chart Documents [facility] [address] [place] [phone] <No scans attached> 10/27/2019 Converted 13x Documents [facility] [address] [place] [phone] <No scans attached> Last Filed Vital Signs [...] Care Team (Late st Contact Info) Description 10/22/2025 12:15 PM DIETETIC TECHNICIAN Office Visit [facility] [address] [place] [phone] Malena Baker, DMD [address] [place], [place] [phone] Procedures Procedure Name Priority Date/Time Associated Diagnosis Comments PROPHYLAXIS - ADULT Routine 03/26/2025 1 :00 PM CDT Encounter for dental examination and cleaning without abnormal findings PERIODIC ORAL EVALUATION - ESTABLISHED PATIENT Routine 03/26/2025 1:00 PM CDT Encounter for dental examination and cleaning without abnormal findings BITEWINGS - FOUR RADIOGRAPHIC IMAGES Routine 03/26/2025 1:00 PM CDT PERIODIC ORAL EVALUATION - ESTABLISHED PATIENT Routine 09/11/2024 2:15 PM DIETETIC TECHNICIAN Encounter for dental examination and cleaning without [...] ORAL HYGIENE INSTRUCTIONS Routine 2022 3:15 PM DIETETIC TECHNICIAN PROPHYLAXIS - ADULT Routine 12/07/2022 3 :15 PM DIETETIC TECHNICIAN BITEWINGS - FOUR RADIOGRAPHIC IMAGES Routine 12/07/2022 3:15 PM DIETETIC TECHNICIAN COMPREHENSIVE ORAL EVALUATION - NEW OR ESTABLISHED PATIENT Routine 12/07/2022 3:15 PM DIETETIC TECHNICIAN TOPICAL APPLICATION OF FLUORIDE VARNISH Routine 04/14/2022 10:00 AM CDT ORAL HYGIENE INSTRUCTIONS Routine 2021 10:00 AM CDT PROPHYLAXIS - ADULT Routine 04/14/2022 1 0:00 AM CDT PERIODIC ORAL EVALUATION - ESTABLISHED PATIENT Routine 04/14/2022 10:00 AM CDT 20 ROOT CANAL Routine 04/14/2022 12:00 AM CDT 20 PFM CROWN Routine 04/14/2022 12:00 AM CDT PROPHYLAXIS - ADULT Routine 10/14/2021 1 0:00 AM DIETETIC TECHNICIAN BITEWINGS - FOUR RADIOGRAPHIC IMAGES Routine 10/14/2021 10:00 AM DIETETIC TECHNICIAN ADDITIONAL X-RAY Routine 10/14/2021 10:0 0 AM DIETETIC TECHNICIAN ADDITIONAL X-RAY Routine 10/14/2021 10:0 0 AM DIETETIC TECHNICIAN ADDITIONAL X-RAY Routine 10/14/2021 10:0 0 AM DIETETIC TECHNICIAN ADDITIONAL X-RAY Routine 10/14/2021 10:0 0 AM DIETETIC TECHNICIAN ADDITIONAL X-RAY Routine 10/14/2021 10:0 0 AM DIETETIC TECHNICIAN SINGLE X-RAY Routine 10/14/2021 10:00 AM DIETETIC TECHNICIAN PERIODIC ORAL EVALUATION - ESTABLISHED PATIENT Routine 10/14/2021 10:00 AM DIETETIC TECHNICIAN OFFICE VISIT FOR OBSERVATION (DURING REGULARLY SCHEDULED [...] OTHER SERVICES PERFORMED Routine 12/17/2020 2:00 AM DIETETIC TECHNICIAN 18 RECEMENT CROWN Routine 11/18/2020 2:0 0 AM DIETETIC TECHNICIAN 18 LIMITED ORAL EVALUATION - PROBLEM FOCUSED Routine 11/18/2020 2:00 AM DIETETIC TECHNICIAN ADDITIONAL X-RAY Routine 11/18/2020 2:00 AM DIETETIC TECHNICIAN SINGLE X-RAY Routine 11/18/2020 2:00 AM DIETETIC TECHNICIAN OFFICE VISIT FOR OBSERVATION (DURING REGULARLY SCHEDULED HOURS) - NO OTHER SERVICES PERFORMED Routine 10/05/2020 2:00 AM DIETETIC TECHNICIAN 13 MOD AMALGAM 3 SURFACE Routine 020 2:00 AM DIETETIC TECHNICIAN 30 MO AMALGAM 2 SURFACE Routine 09/23/20 20 2:00 AM DIETETIC TECHNICIAN 29 DO AMALGAM 2 SURFACE Routine 09/23/20 20 2:00 AM DIETETIC TECHNICIAN 15 LO AMALGAM 2 SURFACE Routine 09/23/20 20 2:00 AM DIETETIC TECHNICIAN 31 O AMALGAM 1 SURFACE Routine 0 2:00 AM DIETETIC TECHNICIAN 19 CERECFIRED CROWNPOST Routine 09/23/20 20 2:00 AM DIETETIC TECHNICIAN 18 CERECFIRED CROWNPOST Routine 09/23/20 20 2:00 AM DIETETIC TECHNICIAN 14 CERECFIRED CROWNPOST Routine 09/23/20 20 2:00 AM DIETETIC TECHNICIAN 32 EXTRACTION, ERUPTED TOOTH OR EXPOSED ROOT (ELEVATION AND/OR FORCEPS REMOVAL) Routine 09/23/2020 2:00 AM DIETETIC TECHNICIAN 17 EXTRACTION, ERUPTED TOOTH OR EXPOSED ROOT (ELEVATION AND/OR FORCEPS REMOVAL) Routine 09/23/2020 2:00 AM DIETETIC TECHNICIAN 16 EXTRACTION, ERUPTED TOOTH OR EXPOSED ROOT (ELEVATION AND/OR FORCEPS REMOVAL) Routine 09/23/2020 2:00 AM DIETETIC TECHNICIAN 2 EXTRACTION, ERUPTED TOOTH OR EXPOSED ROOT (ELEVATION AND/OR FORCEPS REMOVAL) Routine 09/23/2020 2:00 AM DIETETIC TECHNICIAN ORAL HYGIENE INSTRUCTIONS Routine 2019 2:00 AM DIETETIC TECHNICIAN TOPICAL APPLICATION OF FLUORIDE VARNISH Routine 09/23/2020 2:00 AM DIETETIC TECHNICIAN PROPHYLAXIS - ADULT Routine 09/23/2020 2 :00 AM DIETETIC TECHNICIAN COMPREHENSIVE ORAL EVALUATION - NEW OR ESTABLISHED PATIENT Routine 09/23/2020 2:00 AM DIETETIC TECHNICIAN PANORAMIC RADIOGRAPHIC IMAGE Routine 09/23/2020 2:00 AM DIETETIC TECHNICIAN INTRAORAL - COMPREHENSIVE SERIES OF RADIOGRAPHIC IMAGES Routine 09/23/2020 2:00 AM DIETETIC TECHNICIAN INTRAORAL PHOTO Routine 09/23/2020 2:00 AM DIETETIC TECHNICIAN INTRAORAL PHOTO Routine 09/23/2020 2:00 AM DIETETIC TECHNICIAN INTRAORAL PHOTO Routine 09/23/2020 2:00 AM DIETETIC TECHNICIAN INTRAORAL PHOTO Routine 09/23/2020 2:00 AM DIETETIC TECHNICIAN Visit Diagnoses Diagnosis Start Date Encounter for dental examination and cleaning without abnormal findings 02/26/2024 Encounter for dental examination and cleaning without abnormal findings 09/11/2024 Encounter for dental examination and cleaning without abnormal findings 03/26/2025 Encounter for dental examination and cleaning without abnormal findings 03/26/2025 Insurance [facility] [place] [address] [id number] [employer] HMO
--- OUTSIDE RECORDS SUMMARY | 2025-05-11 09:14 | XMS_ITS | Clinical Summary ---
Author Organization [facility] Address [address] [place] [address] Care Team Providers Care Hardware Assembler Name Role Phone Hamlet Hernandez MD Primary Care Provider [phone] Allergies No known active allergies Medications lovastatin [...] 9:49 AM CDT Height 162.6 cm (5' 4) 06/15/2020 9:49 AM CDT Body Mass Index [...] this topic Medical Devices Implanted Type Area Meat Stuffer Device Identifier Shelf Expiration Date Model / Serial / Lot Iol Maximiliano [employer] Zcboo - [id number] Implanted:Qty: 1 on 06/21/2020 by Mark De Leon MD at [facility] Lens Left: Eye [employer] 06/23/2021 [id number] / [id number] / Insurance [facility] [place] [id number] [facility] MEDICARE Care Teams Hardware Assembler Relationship Specialty Start Date End Date Hamlet Hernandez MD [address] [address] PCP - General FAMILY PRACTICE 06/21/20
--- OUTSIDE RECORDS SUMMARY | 2025-05-11 09:14 | XMS_ITS | Clinical Summary ---
Author Organization [facility] Health Address [address] [place] [address] Care Team Providers Care Wash Barrel Leader Name Role Phone Unavailable Primary Care Provider Unavailabl e Allergies No known active allergies Medications No known medications Active Problems No known active problems Encounters Date Type Department Care Team Description 03/26/2025 1:00 PM CDT Office Visit [facility] [address] [place] [phone] Encounter for dental examination and cleaning without abnormal findings (Primary Dx) 03/26/2025 1:00 PM CDT Office Visit [facility] [address] [place] [phone] Malena Baker, ROQUE Encounter for dental examination and cleaning without abnormal findings (Primary Dx) from Last 3 Months Social History Tobacco [...] st Contact Info) Description 10/22/2025 12:15 PM CAREER SERVICES ASSISTANT Office Visit [facility] [address] [place] [phone] Malena Baker, DMD [address] [place] [address] Health Maintenance Due Date Last Done Comments Dental X-Ray: Full Mouth 02/24/2024 02/22/2021, 09/07 Dental X-Ray: Panoramic 02/24/2024 02/22/2021, 09/23 Dental Oral Exam 09/26/2025 03/26/2025, 02/2024, 02/26/2024, Additional history exists Dental Prophylaxis 09/26/2025 03/26/2025, 0 02/26/2024, 12/07/2022, Additional history exists Dental X-Ray: Bitewings 09/26/2025 03/26/2025 Procedures Procedure Name Priority Date/Time Associated Diagnosis Comments PROPHYLAXIS - ADULT Routine 03/26/2025 1 :00 PM CDT Encounter for dental examination and cleaning without abnormal findings PERIODIC ORAL EVALUATION - ESTABLISHED PATIENT Routine 03/26/2025 1:00 PM CDT Encounter for dental examination and cleaning without abnormal findings BITEWINGS - FOUR RADIOGRAPHIC IMAGES Routine 03/26/2025 1:00 PM CDT PANORAMIC RADIOGRAPHIC IMAGE Routine 09/23/2020 2:00 AM CAREER SERVICES ASSISTANT INTRAORAL - COMPREHENSIVE SERIES OF RADIOGRAPHIC IMAGES Routine 09/23/2020 2:00 AM CAREER SERVICES ASSISTANT from Last 3 Months or Most Recently Relevant to Health Maintenance [place] [address] [id number] [employer] H[place] [id number]
--- OUTSIDE RECORDS SUMMARY | 2025-05-11 09:14 | XMS_ITS | Continuity of Care Document ---
Author Organization [facility] Address [address] [place] [address] [address] [place] [address] Phone Care Team Providers Care Clinical Pathologist Name Role Phone Bryant OD, Jackson Unavailable Unavailable Advance Directives Directive Yes / No Effective Date File Name No Information Encounters Encounter Description Practice Location Reason(s) For Visit Diagnoses Date Provider Providers Copied on Encounter [facility], [id number] [place] [address] [address] [place], [place], [address], [place] tel:[phone] [facility] No Information Dec-1 6-200 4 Bryant OD Jackson. [address] , [address], [place], [address], [place]. tel:[phone] Family History Family Member Type Diagnosis Age [...]
== END 2025-05-11 09:36 | disposition home or self-care (01) ==
PROVIDERS: Emergency Provider Nurse Practitioner Family; PCP Family Medicine
DX: H69.91 Unspecified Eustachian tube disorder, right ear (principal); E78.2 Mixed hyperlipidemia; Z86.718 Personal history of other venous thrombosis and embolism; Z85.3 Personal history of malignant neoplasm of breast; Z98.42 Cataract extraction status, left eye
CPT/HCPCS: 99211; G0463

== ENCOUNTER 2025-05-21 08:47 | Outpatient (CLI) | payer MEDICARE, BC, SELFPAY ==
--- OUTSIDE RECORDS SUMMARY | 2025-05-21 08:53 | XMS_ITS | Encounter Summary ---
Author Organization [facility] Health Address [address] [place] [address] Care Team Providers Care Media Producer Name Role Phone Unavailable Primary Care Provider Unavailabl e Prior Encounters Date Type Department Care Team Description 03/26/2025 1:00 PM CDT Office Visit [facility] [address] [place] [phone] Encounter for dental examination and cleaning without abnormal findings (Primary Dx) 03/26/2025 1:00 PM CDT Office Visit [facility] [address] [place] [phone] Malena Baker DMD Encounter for dental examination and cleaning without abnormal findings (Primary Dx) 09/11/2024 Travel 09/11/2024 2:15 PM CAMPUS MONITOR Office Visit [facility] [address] [place] [phone] Malena Baker DMD Encounter for dental examination and cleaning without abnormal findings (Primary Dx) 02/26/2024 Travel 02/26/2024 12:00 PM CDT Office Visit [facility] [address] [place] [phone] Malena Baker DMD Encounter for dental examination and cleaning without abnormal findings (Primary Dx) 12/07/2022 Travel 12/07/2022 3:15 PM CAMPUS MONITOR Office Visit [facility] [address] [place] [phone] Javon Braxton DDS 04/14/2022 10:00 AM CDT Office Visit [facility] [address] [place] [phone] Federico Ceja DDS 04/14/2022 10:00 AM CDT Office Visit [facility] [address] [place] [phone] [address]ay [address] 10/14/2021 Travel 10/14/2021 10:00 AM CAMPUS MONITOR Office Visit [facility] [address] [place] [phone] Rosaura Randall, DMD 04/01/2021 Travel 04/01/2021 11:00 AM CDT Office Visit [facility] [address] [place] [phone] Rosaura Randall, DMD 10/27/2019 Converted CPS Chart Documents [facility] [address] [place] [phone] <No scans attached> 10/27/2019 Converted 13x Documents [facility] [address] [place] [phone] <No scans attached> Last Filed Vital Signs [...] st Contact Info) Description 10/22/2025 12:15 PM CAMPUS MONITOR Office Visit [facility] [address] [place] [phone] Malena Baker, DMD [address] [place], [place] [phone] Procedures Procedure Name Priority Date/Time Associated Diagnosis [...] - ESTABLISHED PATIENT Routine 09/11/2024 2:15 PM CAMPUS MONITOR Encounter for dental examination and cleaning without [...] ORAL HYGIENE INSTRUCTIONS Routine 2022 3:15 PM CAMPUS MONITOR PROPHYLAXIS - ADULT Routine 12/07/2022 3 :15 PM CAMPUS MONITOR BITEWINGS - FOUR RADIOGRAPHIC IMAGES Routine 12/07/2022 3:15 PM CAMPUS MONITOR COMPREHENSIVE ORAL EVALUATION - NEW OR ESTABLISHED PATIENT Routine 12/07/2022 3:15 PM CAMPUS MONITOR TOPICAL APPLICATION OF FLUORIDE VARNISH Routine 04/14/2022 10:00 AM CDT ORAL HYGIENE INSTRUCTIONS Routine 2021 10:00 AM CDT PROPHYLAXIS - ADULT Routine 04/14/2022 1 0:00 AM CDT PERIODIC ORAL EVALUATION - ESTABLISHED PATIENT Routine 04/14/2022 10:00 AM CDT 20 ROOT CANAL Routine 04/14/2022 12:00 AM CDT 20 PFM CROWN Routine 04/14/2022 12:00 AM CDT PROPHYLAXIS - ADULT Routine 10/14/2021 1 0:00 AM CAMPUS MONITOR BITEWINGS - FOUR RADIOGRAPHIC IMAGES Routine 10/14/2021 10:00 AM CAMPUS MONITOR ADDITIONAL X-RAY Routine 10/14/2021 10:0 0 AM CAMPUS MONITOR ADDITIONAL X-RAY Routine 10/14/2021 10:0 0 AM CAMPUS MONITOR ADDITIONAL X-RAY Routine 10/14/2021 10:0 0 AM CAMPUS MONITOR ADDITIONAL X-RAY Routine 10/14/2021 10:0 0 AM CAMPUS MONITOR ADDITIONAL X-RAY Routine 10/14/2021 10:0 0 AM CAMPUS MONITOR SINGLE X-RAY Routine 10/14/2021 10:00 AM CAMPUS MONITOR PERIODIC ORAL EVALUATION - ESTABLISHED PATIENT Routine 10/14/2021 10:00 AM CAMPUS MONITOR OFFICE VISIT FOR OBSERVATION (DURING REGULARLY SCHEDULED [...] OTHER SERVICES PERFORMED Routine 12/17/2020 2:00 AM CAMPUS MONITOR 18 RECEMENT CROWN Routine 11/18/2020 2:0 0 AM CAMPUS MONITOR 18 LIMITED ORAL EVALUATION - PROBLEM FOCUSED Routine 11/18/2020 2:00 AM CAMPUS MONITOR ADDITIONAL X-RAY Routine 11/18/2020 2:00 AM CAMPUS MONITOR SINGLE X-RAY Routine 11/18/2020 2:00 AM CAMPUS MONITOR OFFICE VISIT FOR OBSERVATION (DURING REGULARLY SCHEDULED HOURS) - NO OTHER SERVICES PERFORMED Routine 10/05/2020 2:00 AM CAMPUS MONITOR 13 MOD AMALGAM 3 SURFACE Routine 020 2:00 AM CAMPUS MONITOR 30 MO AMALGAM 2 SURFACE Routine 09/23/20 20 2:00 AM CAMPUS MONITOR 29 DO AMALGAM 2 SURFACE Routine 09/23/20 20 2:00 AM CAMPUS MONITOR 15 LO AMALGAM 2 SURFACE Routine 09/23/20 20 2:00 AM CAMPUS MONITOR 31 O AMALGAM 1 SURFACE Routine 0 2:00 AM CAMPUS MONITOR 19 CERECFIRED CROWNPOST Routine 09/23/20 20 2:00 AM CAMPUS MONITOR 18 CERECFIRED CROWNPOST Routine 09/23/20 20 2:00 AM CAMPUS MONITOR 14 CERECFIRED CROWNPOST Routine 09/23/20 20 2:00 AM CAMPUS MONITOR 32 EXTRACTION, ERUPTED TOOTH OR EXPOSED ROOT (ELEVATION AND/OR FORCEPS REMOVAL) Routine 09/23/2020 2:00 AM CAMPUS MONITOR 17 EXTRACTION, ERUPTED TOOTH OR EXPOSED ROOT (ELEVATION AND/OR FORCEPS REMOVAL) Routine 09/23/2020 2:00 AM CAMPUS MONITOR 16 EXTRACTION, ERUPTED TOOTH OR EXPOSED ROOT (ELEVATION AND/OR FORCEPS REMOVAL) Routine 09/23/2020 2:00 AM CAMPUS MONITOR 2 EXTRACTION, ERUPTED TOOTH OR EXPOSED ROOT (ELEVATION AND/OR FORCEPS REMOVAL) Routine 09/23/2020 2:00 AM CAMPUS MONITOR ORAL HYGIENE INSTRUCTIONS Routine 2019 2:00 AM CAMPUS MONITOR TOPICAL APPLICATION OF FLUORIDE VARNISH Routine 09/23/2020 2:00 AM CAMPUS MONITOR PROPHYLAXIS - ADULT Routine 09/23/2020 2 :00 AM CAMPUS MONITOR COMPREHENSIVE ORAL EVALUATION - NEW OR ESTABLISHED PATIENT Routine 09/23/2020 2:00 AM CAMPUS MONITOR PANORAMIC RADIOGRAPHIC IMAGE Routine 09/23/2020 2:00 AM CAMPUS MONITOR INTRAORAL - COMPREHENSIVE SERIES OF RADIOGRAPHIC IMAGES Routine 09/23/2020 2:00 AM CAMPUS MONITOR INTRAORAL PHOTO Routine 09/23/2020 2:00 AM CAMPUS MONITOR INTRAORAL PHOTO Routine 09/23/2020 2:00 AM CAMPUS MONITOR INTRAORAL PHOTO Routine 09/23/2020 2:00 AM CAMPUS MONITOR INTRAORAL PHOTO Routine 09/23/2020 2:00 AM CAMPUS MONITOR Visit Diagnoses Diagnosis Start Date Encounter for dental examination and cleaning without abnormal findings 02/26/2024 Encounter for dental examination and cleaning without abnormal findings 09/11/2024 Encounter for dental examination and cleaning without abnormal findings 03/26/2025 Encounter for dental examination and cleaning without abnormal findings 03/26/2025 Insurance [facility] [place] [address] [id number] [employer] HMO
--- OUTSIDE RECORDS SUMMARY | 2025-05-21 08:53 | XMS_ITS | Continuity of Care Document ---
Author Organization [facility] Address [address] [place] [address] [address] [place] [address] Phone Care Team Providers Care Plate Mill Hand Name Role Phone Bryant OD, Jackson Unavailable Unavailable Advance Directives Directive Yes / No Effective Date File Name No Information Encounters Encounter Description Practice Location Reason(s) For Visit Diagnoses Date Provider Providers Copied on Encounter [facility], [address] [place] [address] [address], [place], [place], [id number], [place] tel:[phone] [facility] No Information Dec- 6-200 4 Bryant OD Jackson. [address] , [address], [place], [address], [place]. tel:[phone] Family History Family Member Type Diagnosis Age At Onset No Information Payers Payer name Insurance type Covered green party ID Authoriza tion(s) No Information Social [...]
--- OUTSIDE RECORDS SUMMARY | 2025-05-21 08:53 | XMS_ITS | Clinical Summary ---
Author Organization [facility] Address [address] [place] [address] Care Team Providers Care Feeder Worker Power Unit Operator Name Role Phone Hamlet Hernandez MD Primary Care Provider [phone] Allergies No known active allergies Medications lovastatin [...] this topic Medical Devices Implanted Type Area Glass Checker Device Identifier Shelf Expiration Date Model / Serial / Lot Iol [place] [employer]ision Zcboo - [id number] Implanted:Qty: 1 on 06/21/2020 by Mark De Leon MD at [facility] Lens Left: Eye [employer] 06/23/2021 [id number] / [id number] / Insurance [facility] [place] [id number] [facility] MEDIC[facility] Care Teams Feeder Worker Power Unit Operator Relationship Specialty Start Date End Date Hamlet Hernandez MD [address] [place] [address] PCP - General FAMILY PRACTICE 06/21/20
--- OUTSIDE RECORDS SUMMARY | 2025-05-21 08:53 | XMS_ITS | Clinical Summary ---
Author Organization [facility] Health Address [address] [place] [address] Care Team Providers Care Underwriting Director Name Role Phone Unavailable Primary Care Provider Unavailabl e Allergies No known active allergies Medications No known medications Active Problems No known active problems Encounters Date Type Department Care Team Description 03/26/2025 1:00 PM CDT Office Visit [facility] [address] [place] [address] Encounter for dental examination and cleaning without abnormal findings (Primary Dx) 03/26/2025 1:00 PM CDT Office Visit [facility] [address] [place] [address] Malena Baker, ROQUE Encounter for [...] st Contact Info) Description 10/22/2025 12:15 PM COOK BARBECUE Office Visit [facility] [address] [place] [address] Malena Baker, DMD [address] [place] [address] Health Maintenance Due Date Last Done Comments [...] PANORAMIC RADIOGRAPHIC IMAGE Routine 09/23/2020 2:00 AM COOK BARBECUE INTRAORAL - COMPREHENSIVE SERIES OF RADIOGRAPHIC IMAGES Routine 09/23/2020 2:00 AM COOK BARBECUE from Last 3 Months or Most Recently Relevant to Health Maintenance [place] [address] [id number] [employer] [place] [id number]
--- OUTSIDE RECORDS SUMMARY | 2025-05-21 08:53 | XMS_ITS | Encounter Summary ---
Author Organization [facility] Address [address] [place] [address] Care Team Providers Care Underwriting Account Representative Name Role Phone Mark De Leon MD Primary Care Provider [phone] Hamlet Hernandez MD Primary Care Provider [phone] Encounter Details Date Type Department Care Team (Late st Contact Info) Description 06/15/2020 Prep for Procedure [facility] [address] [place] [address] Mark De Leon MD [address] [facility] [address] [place] [address] Social History Tobacco Use Types [...] DETECTED NOT DETECTED 06/19/2020 4:01 PM CDT [facility] Comment: A Not Detected (negative) [...] providers and patients using the following websites: https://www.Instabeat.Eduvant/home/Covid-19/HCP/NAAT/fact-sheet2 https://www.iChange/home/Covid-19/Patients/NAAT/ fact-sheet2 This test has been authorized by the FDA under an Emergency Use Authorization (EUA) for use by authorized laboratories. Due to the current public health emergency, [facility] is receiving a high volume of samples [...] about COVID-19 can be found at the [facility] website: www.[employer].Eduvant/Covid19. Test performed at [facility] [address] [place] [address] Director: BABS SONG DO,MPH FIRST TEST UNKNOWN 06/18/2020 3:40 PM CDT [facility] EMPLOYED IN HEALTHCARE UNKNOWN 06/18/2020 3:40 PM CDT [facility] SYMPTOMATIC DEFINED BY CDC NO 06/18/2020 3:40 PM CDT [facility] DATE OF SYMPTOM ONSET NON-APPLICABLE 06/18/2020 3:40 PM CDT [facility] HOSPITALIZATION STATUS NO 06/18/2020 3:40 PM CDT [facility] PATIENT IN ICU NO 06/18/2020 3:40 PM CDT [facility] RESIDENT OF CONGREGATE CARE NO 06/18/2020 3:40 PM CDT [facility] NO 06/18/2020 3:40 PM CDT [facility] PATIENT'S RACE WHITE OR 06/18/2020 3:40 PM CDT [facility] ETHNICITY NONHISPANIC 06/18/2020 3:40 PM CDT [facility] SOURCE (QST) NASOPHARYNGEAL SWAB 06/18/2020 11:30 AM CDT [facility] NASOPHARYNGEAL SWAB / Unknown 06/18/2020 11:32 AM CDT us Mark De Leon MD MICROBIOLOGY - GENERAL ORDERAB LES Final Result [facility] [address] [place] [address], [place] [address], documented in this encounter Visit Diagnoses Diagnosis Preop testing- Primary Preoperative examination, unspecified documented in this encounter Additional Health Concerns Infection Onset Date Last Indicated Resolved Time COVID-19 Rule Out 06/18/2020 06/18/2020 06/19/2020 4:01 PM CDT documented as of this encounter Care Teams Underwriting Account Representative Relationship Specialty [place] [address] [place] [address] PCP - General OPHTHALMOLOGY 06/16/20 06/20/20 Hamlet Hernandez MD [address] [place], [place] [id number] PCP - General FAMILY PRACTICE 06/21/20 documented as of this encounter
== END 2025-05-21 08:48 | disposition home or self-care (01) ==
LOC: ANHAUDIO 08:47
PROVIDERS: PCP Family Medicine; Visit Provider Otolaryngology Otolaryngology/Facial Plastic Surgery
DX: H93.13 Tinnitus, bilateral (principal)
CPT/HCPCS: 92557; 92567

== ENCOUNTER 2025-05-28 14:50 | Outpatient (CLI) | payer MEDICARE, BC, SELFPAY ==
--- NOTE | ~2025-05-28 | XR_ITS ---
XR lumbar spine 6V w bending 05/28/2025 15:20 Indication: Low back pain Procedure: 7 views lumbar spine Comparison: 06/04/2016 Findings: There is dextrocurvature of the lumbar spine. There is disc narrowing at L4-5. No acute fracture, subluxation or dislocation. Mild multilevel facet hypertrophy. No significant alteration of alignment with flexion/extension. There is a chronic T11 wedge compression fracture. Impression: 1: Moderate lumbar spondylosis. 2: Chronic T11 which compression fracture. Reviewed, dictated and finalized at location O. Impression: 1: Moderate lumbar spondylosis. 2: Chronic T11 which compression fracture.
== END 2025-05-28 14:51 | disposition home or self-care (01) ==
PROVIDERS: PCP Family Medicine; Visit Provider Nurse Practitioner Family
DX: M47.896 Other spondylosis, lumbar region (principal)
CPT/HCPCS: 72114

== ENCOUNTER 2025-06-28 10:59 | Emergency (ER) | payer MEDICARE, BC, SELFPAY ==
--- OUTSIDE RECORDS SUMMARY | 2003-12-22 09:00 | XMS_ITS | Continuity of Care Document ---
Author Organization [facility] Address [address] [place] [address] [address] [place] [address] Phone Care Team Providers Care Senior Db2 Systems Programmer Name Role Phone Bryant OD, Jackson Unavailable Unavailable Advance Directives Directive Yes / No Effective Date File Name No Information Encounters Encounter Description Practice Location Reason(s) For Visit Diagnoses Date Provider Providers Copied on Encounter [facility], [id number] [place] [address] [address], [place], [place], [id number], [place] tel:[phone] [facility] No Information Dec- 6-200 4 Bryant OD Jackson. [address] , [address], [place], [address], [place]. tel:[phone] Family History Family Member Type Diagnosis Age At Onset No Information Payers Payer name Insurance type Covered republican ID Authoriza tion(s) No Information Social History Type Description Quantity Date Captured Comments Sex Female Smoking Status No Information Chief Complaint And Reason For Visit No Information Reason For Referral Reason For Referral No Information History Of Present Illness Encounter Date Complaint History Of Prese nt Illness No Information Functional Status Date Functional Assessmen t No Information Instructions Date Instruction Additional Infor mation No Information Assessments Type Assessment Date No Information Patient Care Teams Name Effective Dates (start - stop) Status Members No Information
--- NOTE | 2025-06-28 11:01 | ED.FEMALEGU ---
HPI - Female Genitourinary General Chief complaint: Urogenital-Female Stated complaint: UTI Time Seen by Provider: 06/28/25 11:01 Source: patient Mode of arrival: ambulatory Limitations: no limitations History of Present Illness HPI Narrative: Tita is a 74-year-old female patient presenting to the with complaints of possible UTI a started this morning. She reports some burning and blood in her urine that started today. Rates pain 4/10 currently. Has not taken any medications for her symptoms. No nausea, vomiting, diarrhea. Denies any back pain or abdominal pain. No fevers, chills, body aches. Related Data Home Medications ?Medication ?Instructions ?Recorded ?Confirmed ?Last Taken ?Type vitamins A,C,X-qujv-rzohld 4,296 2 cap PO DAILY 08/30/22 05/28/25 10/03/24 History mcg-226 mg-90 mg capsule (PreserVision AREDS) acetaminophen 650 mg 650 mg PO Q12H PRN Pain 10/17/23 05/28/25 09/07/24 History tablet,extended release (Tylenol Arthritis Pain) diphenhydramine HCl 25 mg capsule 25 mg PO HS PRN Insomnia 09/10/24 05/28/25 09/07/24 History (Benadryl) multivitamin with minerals 1 cap PO DAILY 03/09/25 05/28/25 Unknown History cetirizine 10 mg capsule (Zyrtec) 10 mg PO DAILY PRN 05/28/25 05/28/25 Unknown History fluticasone propionate 50 1 spray intranasal DAILY 05/28/25 05/28/25 Unknown History mcg/actuation nasal spray,suspension (Flonase Allergy Relief) Allergies Allergy/AdvReac Type Severity Reaction Status Date / Time No Known Allergies Allergy Verified 06/28/25 11:04 Review of Systems Review of Systems: Pertinent positives per HPI. Patient denies any fever, chills, rash, headache, visual changes, dizziness, cough, runny nose, sore throat, shortness of breath, chest pain, palpitations, nausea, vomiting, diarrhea, constipation, abdominal pain. [facility] Past Medical History Medical History Bilateral tinnitus History of left breast cancer Paroxysmal SVT (supraventricular tachycardia) Acute effusion of both middle ears Cerumen impaction Ankle pain, right Adult BMI 25.0-25.9 kg/sq m BMI 26.0-26.9,adult Chronic deep vein thrombosis (DVT) of left lower extremity MORALES (dyspnea on exertion) Palpitations with regular cardiac rhythm Hypersomnia Mixed hyperlipidemia Obstructive sleep apnea Screening for thyroid disorder Sleep apnea in adult Varicose vein of leg Vertigo Surgical History Surgical History H/O left cataract extraction History of tubal ligation Family History Family History Mother Hypertension Carcinoma of colon Family history of diabetes mellitus in first degree relative Family history of malignant neoplasm of breast in first degree relative Patient's mother is , Onset Age: 82 Grandparent Family history of coronary artery disease Acute myocardial infarction Malignant neoplasm of prostate Sibling Family history of diabetes mellitus in first degree relative Family history of colonic diverticulitis Family history of heart disease in male family member before age 55 Diabetes mellitus Family history of congestive heart failure Patient's brother is in good health Family history of sleep apnea Father Family history of emphysema Family history of renal failure, Onset Age: 79 Family history of congenital heart disease Family history of malignant neoplasm of urinary bladder Family history of congestive heart failure Sibling , heart failure No problems noted. Other Family history of malignant neoplasm of male breast Social History Social History Smoking status: Never smoker Second hand tobacco smoke exposure: Yes Additional smoking assessment comments: DENIES ANY FORM OF TOBACCO USE Alcohol intake: current Drinks per week: 2 Substance use: never Substance use type: does not use Do You Feel Safe in your Home?: Yes Lack of Transportation: No Lack of Food: Never True Current Housing: I Have Housing Concerned About Future Housing: No Difficulty Paying Gas/Electric Bills: No Difficulty Paying for Meds: No Currently Unemployed: No Education: Bachelor's Degree Difficulty w/ Childcare or Family Care: No Living arrangements: with family Additional living arrangements comments: [place] 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 There is no relevant family history pertinent to the patient complaint. Exam Narrative: General: Well-developed, well nourished, in no apparent distress. Head: Normocephalic, atraumatic. Cardio: Regular rate and rhythm, s1 and s2 normal, no murmur appreciated. Resp: Clear to auscultation bilaterally, no rhonchi, rales, wheezing or rubs. Abdomen: Soft, pliable, bowel sounds present in all quadrants, non-tender to palpation, no organomegly, no CVAT tenderness. Course Course Emergency Course: Portions of this record may have been created with voice recognition software. Level of Care: Express Care Visit Vital Signs Vital signs: Vital Signs Temperature 36.2 C L 06/28/25 11:12 Pulse Rate 78 06/28/25 11:12 Respiratory Rate 16 06/28/25 11:12 Blood Pressure 113/75 06/28/25 11:12 Pulse Oximetry 100 06/28/25 11:12 Oxygen Delivery Room Air 06/28/25 11:12 Temperature 36.2 C L 06/28/25 11:12 Pulse Rate 78 06/28/25 11:12 Respiratory Rate 16 06/28/25 11:12 Blood Pressure 113/75 06/28/25 11:12 Pulse Oximetry 100 06/28/25 11:12 Oxygen Delivery Room Air 06/28/25 11:12 Vital signs reviewed MDM - Female Genitourinary MDM Narrative Medical decision making narrative: At the time of visit patient is resting comfortably on the exam table. Patient appears to be nontoxic. Complaints of possible UTI a started this morning. She reports some burning and blood in her urine that started today. Rates pain 4/10 currently. Has not taken any medications for her symptoms. No nausea, vomiting, diarrhea. Denies any back pain or abdominal pain. No fevers, chills, body aches. Urine dip was ordered. Labs: Urine dip positive for leukocytes, blood, protein, and trace ketone. We will send urine for culture. Plan: I suspect patient has acute UTI. For cephalexin was sent to the pharmacy. Supportive measures were discussed with the patient and they voiced understanding discharge instructions and agrees to treatment plan. Return precautions reviewed Differential Diagnosis Differential diagnosis: Likely urinary tract infection and cystitis Lab Data Labs: Lab Results 09/21/25 Range/Units 11:17 POC Urine Color Dark POC Urine Clarity Cloudy POC Urine pH 5.5 POC Ur Specif [place] 1.030 POC Urine Protein 3+ (Negative) POC Ur Glucose (UA) Negative (Negative) POC Urine Ketones Trace (Negative) POC Urine Blood 3+ (Negative) POC Urine Nitrite Negative (Negative) POC Urine Bilirubin Negative (Negative) POC Urine Urobilinogen 0.2 POC U Leukocyte Esteras 1+ (Negative) Discharge Plan Discharge Clinical Impression: UTI (urinary tract infection) Qualifiers: Urinary tract infection type: acute cystitis Hematuria presence: with hematuria Qualified Code(s): N30.01 - Acute cystitis with hematuria Patient Disposition: Home Condition: Stable Instructions: Antibiotic Form, Urinary Tract Infection in Older Adults (ED) Additional Instructions: Perineum was positive and or leukocytes, protein, blood, and a trace of ketone. We will send urine for culture. Take cephalexin as prescribed Increase fluids and stay well hydrated Wipe front to back. May use wet wipes. Avoid tub baths If sexually active- pee before and after intercourse. Wear cotton panties Avoid tight clothing up against the genitals Follow up with your PCP in 1 week if symptoms persist. Patient Language: Indian Prescriptions: New cephalexin 500 mg capsule 500 mg PO Q12H 7 Days Qty: 14 0RF No Action PreserVision AREDS 14,320-226-200 [id number] Capsule 2 cap PO DAILY fluticasone propionate 50 mcg/actuation spray,suspension 1 spray intranasal DAILY 30 Days Qty: 16 2RF Rx Instructions: administer into each nostril multivitamin with minerals Capsule 1 cap PO DAILY fluticasone propionate [Flonase Allergy Relief] 50 mcg/actuation spray,suspension 1 spray intranasal DAILY Rx Instructions: administer into each nostril Zyrtec 10 mg capsule 10 mg PO DAILY PRN cyclobenzaprine 10 mg tablet 10 mg PO .hs PRN (Reason: muscle spasm) Qty: 14 0RF Rx Instructions: may cause drowsiness meloxicam 15 mg tablet 15 mg PO DAILY Qty: 30 0RF diphenhydramine HCl [Benadryl] 25 mg Capsule 25 mg PO HS PRN (Reason: Insomnia) acetaminophen [Tylenol Arthritis Pain] 650 mg Tablet Extended Release 650 mg PO Q12H PRN (Reason: Pain) Follow-up/Referrals: Hamlet Hernandez MD [Primary Care Provider, [facility]] Time of Disposition: 11:24 Quality NIHSS Nursing Documentation ED NIHSS nursing documentation: reviewed/agree
--- OUTSIDE RECORDS SUMMARY | 2025-06-28 11:03 | XMS_ITS | Clinical Summary ---
Author Organization [facility] Health Address [address] [place] [address] Care Team Providers Care Mainframe Software Developer Name Role Phone Unavailable Primary Care Provider Unavailabl e Allergies No known active allergies Medications No known medications Active Problems No known active problems Social [...] st Contact Info) Description 10/22/2025 12:15 PM MARINE SURVEYOR Office Visit [facility] [address] [place] [address] Malena Baker, ROQUE [address] [place] [address] Health Maintenance Due Date Last Done Comments [...] PANORAMIC RADIOGRAPHIC IMAGE Routine 09/23/2020 2:00 AM MARINE SURVEYOR INTRAORAL - COMPREHENSIVE SERIES OF RADIOGRAPHIC IMAGES Routine 09/23/2020 2:00 AM MARINE SURVEYOR from Last 3 Months or Most Recently Relevant to Health Maintenance Insurance [facility] [place] [address] [place] [id number] [employer] HMO
--- OUTSIDE RECORDS SUMMARY | 2025-06-28 11:03 | XMS_ITS | Encounter Summary ---
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 Name Role Phone Unavailable Primary Care Provider Unavailabl e Prior Encounters Date Type Department Care Team Description 03/26/2025 1:00 PM CDT Office Visit [facility] [address] [place] [phone] Encounter for dental examination and cleaning without abnormal findings (Primary Dx) 03/26/2025 1:00 PM CDT Office Visit [facility] [address] [place] [phone] Malena Baker DMD Encounter for dental examination and cleaning without abnormal findings (Primary Dx) 09/11/2024 Travel 09/11/2024 2:15 PM ENERGY MANAGER Office Visit [facility] [address] [place] [phone] Malena Baker DMD Encounter for dental examination and cleaning without abnormal findings (Primary Dx) 02/26/2024 Travel 02/26/2024 12:00 PM CDT Office Visit [facility] [address] [place] [phone] Malena Baker DMD Encounter for dental examination and cleaning without abnormal findings (Primary Dx) 12/07/2022 Travel 12/07/2022 3:15 PM ENERGY MANAGER Office Visit [facility] [address] [place] [phone] Javon Braxton DDS 04/14/2022 10:00 AM CDT Office Visit [facility] [address] [place] [phone] Federico Ceja DDS 04/14/2022 10:00 AM CDT Office Visit [facility] [address] [place] [phone] [address] 10/14/2021 Travel 10/14/2021 10:00 AM ENERGY MANAGER Office Visit [facility] [address] [place] [phone] Rosaura Randall, DMD 04/01/2021 Travel 04/01/2021 11:00 AM CDT Office Visit [facility] [address] [place] [phone] Rosaura Randall, DMD 10/27/2019 Converted CPS Chart Documents [facility] [address] [place] [phone] <No scans attached> 10/27/2019 Converted 13x Documents [facility] [address] [place] [phone] <No scans attached> Last Filed Vital Signs [...] st Contact Info) Description 10/22/2025 12:15 PM ENERGY MANAGER Office Visit [facility] [address] [place] [phone] Malena Baker, DMD [address] [place], [place] [phone] Procedures Procedure Name Priority Date/Time Associated Diagnosis [...] - ESTABLISHED PATIENT Routine 09/11/2024 2:15 PM ENERGY MANAGER Encounter for dental examination and cleaning without [...] ORAL HYGIENE INSTRUCTIONS Routine 2022 3:15 PM ENERGY MANAGER PROPHYLAXIS - ADULT Routine 12/07/2022 3 :15 PM ENERGY MANAGER BITEWINGS - FOUR RADIOGRAPHIC IMAGES Routine 12/07/2022 3:15 PM ENERGY MANAGER COMPREHENSIVE ORAL EVALUATION - NEW OR ESTABLISHED PATIENT Routine 12/07/2022 3:15 PM ENERGY MANAGER TOPICAL APPLICATION OF FLUORIDE VARNISH Routine 04/14/2022 10:00 AM CDT ORAL HYGIENE INSTRUCTIONS Routine 2021 10:00 AM CDT PROPHYLAXIS - ADULT Routine 04/14/2022 1 0:00 AM CDT PERIODIC ORAL EVALUATION - ESTABLISHED PATIENT Routine 04/14/2022 10:00 AM CDT 20 ROOT CANAL Routine 04/14/2022 12:00 AM CDT 20 PFM CROWN Routine 04/14/2022 12:00 AM CDT PROPHYLAXIS - ADULT Routine 10/14/2021 1 0:00 AM ENERGY MANAGER BITEWINGS - FOUR RADIOGRAPHIC IMAGES Routine 10/14/2021 10:00 AM ENERGY MANAGER ADDITIONAL X-RAY Routine 10/14/2021 10:0 0 AM ENERGY MANAGER ADDITIONAL X-RAY Routine 10/14/2021 10:0 0 AM ENERGY MANAGER ADDITIONAL X-RAY Routine 10/14/2021 10:0 0 AM ENERGY MANAGER ADDITIONAL X-RAY Routine 10/14/2021 10:0 0 AM ENERGY MANAGER ADDITIONAL X-RAY Routine 10/14/2021 10:0 0 AM ENERGY MANAGER SINGLE X-RAY Routine 10/14/2021 10:00 AM ENERGY MANAGER PERIODIC ORAL EVALUATION - ESTABLISHED PATIENT Routine 10/14/2021 10:00 AM ENERGY MANAGER OFFICE VISIT FOR OBSERVATION (DURING REGULARLY SCHEDULED [...] OTHER SERVICES PERFORMED Routine 12/17/2020 2:00 AM ENERGY MANAGER 18 RECEMENT CROWN Routine 11/18/2020 2:0 0 AM ENERGY MANAGER 18 LIMITED ORAL EVALUATION - PROBLEM FOCUSED Routine 11/18/2020 2:00 AM ENERGY MANAGER ADDITIONAL X-RAY Routine 11/18/2020 2:00 AM ENERGY MANAGER SINGLE X-RAY Routine 11/18/2020 2:00 AM ENERGY MANAGER OFFICE VISIT FOR OBSERVATION (DURING REGULARLY SCHEDULED HOURS) - NO OTHER SERVICES PERFORMED Routine 10/05/2020 2:00 AM ENERGY MANAGER 13 MOD AMALGAM 3 SURFACE Routine 020 2:00 AM ENERGY MANAGER 30 MO AMALGAM 2 SURFACE Routine 09/23/20 20 2:00 AM ENERGY MANAGER 29 DO AMALGAM 2 SURFACE Routine 09/23/20 20 2:00 AM ENERGY MANAGER 15 LO AMALGAM 2 SURFACE Routine 09/23/20 20 2:00 AM ENERGY MANAGER 31 O AMALGAM 1 SURFACE Routine 0 2:00 AM ENERGY MANAGER 19 CERECFIRED CROWNPOST Routine 09/23/20 20 2:00 AM ENERGY MANAGER 18 CERECFIRED CROWNPOST Routine 09/23/20 20 2:00 AM ENERGY MANAGER 14 CERECFIRED CROWNPOST Routine 09/23/20 20 2:00 AM ENERGY MANAGER 32 EXTRACTION, ERUPTED TOOTH OR EXPOSED ROOT (ELEVATION AND/OR FORCEPS REMOVAL) Routine 09/23/2020 2:00 AM ENERGY MANAGER 17 EXTRACTION, ERUPTED TOOTH OR EXPOSED ROOT (ELEVATION AND/OR FORCEPS REMOVAL) Routine 09/23/2020 2:00 AM ENERGY MANAGER 16 EXTRACTION, ERUPTED TOOTH OR EXPOSED ROOT (ELEVATION AND/OR FORCEPS REMOVAL) Routine 09/23/2020 2:00 AM ENERGY MANAGER 2 EXTRACTION, ERUPTED TOOTH OR EXPOSED ROOT (ELEVATION AND/OR FORCEPS REMOVAL) Routine 09/23/2020 2:00 AM ENERGY MANAGER ORAL HYGIENE INSTRUCTIONS Routine 2019 2:00 AM ENERGY MANAGER TOPICAL APPLICATION OF FLUORIDE VARNISH Routine 09/23/2020 2:00 AM ENERGY MANAGER PROPHYLAXIS - ADULT Routine 09/23/2020 2 :00 AM ENERGY MANAGER COMPREHENSIVE ORAL EVALUATION - NEW OR ESTABLISHED PATIENT Routine 09/23/2020 2:00 AM ENERGY MANAGER PANORAMIC RADIOGRAPHIC IMAGE Routine 09/23/2020 2:00 AM ENERGY MANAGER INTRAORAL - COMPREHENSIVE SERIES OF RADIOGRAPHIC IMAGES Routine 09/23/2020 2:00 AM ENERGY MANAGER INTRAORAL PHOTO Routine 09/23/2020 2:00 AM ENERGY MANAGER INTRAORAL PHOTO Routine 09/23/2020 2:00 AM ENERGY MANAGER INTRAORAL PHOTO Routine 09/23/2020 2:00 AM ENERGY MANAGER INTRAORAL PHOTO Routine 09/23/2020 2:00 AM ENERGY MANAGER Visit Diagnoses Diagnosis Start Date Encounter for dental examination and cleaning without abnormal findings 02/26/2024 Encounter for dental examination and cleaning without abnormal findings 09/11/2024 Encounter for dental examination and cleaning without abnormal findings 03/26/2025 Encounter for dental examination and cleaning without abnormal findings 03/26/2025 Insurance [facility] [place] [address] [place] [id number] [employer] HMO
--- OUTSIDE RECORDS SUMMARY | 2025-06-28 11:04 | XMS_ITS | Clinical Summary ---
Author Organization [facility] Address [address] [place] [address] Care Team Providers Care Buffer Machine Name Role Phone Hamlet Hernandez MD Primary Care Provider [phone] Allergies No known active allergies Medications lovastatin [...] COVID-19 Vaccine (1 - 2023-2 5 season) 2025 Meningococcal B Vaccine Aged Out No l onger eligible based on patient's age to complete this topic Meningococcal Vaccine Aged Out No steven james eligible based on patient's age to complete this topic RSV Immunizations Under 20 Months Aged Out No longer eligible based on patient's age to complete this topic Medical Devices Implanted Type Area Pattern Ruler Device Identifier Shelf Expiration Date Model / Serial / Lot Iol [employer]cboo - [id number] Implanted:Qty: 1 on 06/21/2020 by Mark De Leon MD at [facility] Lens Left: Eye [employer] 06/23/2021 [id number] / [id number] / Insurance [facility] [place] [id number] [facility] MEDICARE Care Teams Buffer Machine Relationship Specialty Start Date End Date Hamlet Hernandez MD [address] [place] [address] PCP - General FAMILY PRACTICE 06/21/20
[2025-06-28 11:12] VITALS: BP 113/75; PULSE 78; RESP 16; TEMP 36.2; O2SAT 100
[2025-06-28 11:20] LABS: EDUAAPPEAR Cloudy; EDUABILI Negative (Negative); EDUABLOOD 3+ (Negative); EDUACOLOR1 Dark; EDUAGLUCOSE Negative (Negative); EDUAKETONE Trace (Negative); EDUALEUKO 1+ (Negative); EDUANITRATE Negative (Negative); EDUAPH 5.5; EDUAPROTEIN 3+ (Negative); EDUASPGRAVITY 1.030; EDUAUROBILI 0.2
== END 2025-06-28 11:29 | disposition home or self-care (01) ==
PROVIDERS: Emergency Provider Nurse Practitioner Family; PCP Family Medicine
DX: N30.01 Acute cystitis with hematuria (principal); E78.2 Mixed hyperlipidemia; Z86.718 Personal history of other venous thrombosis and embolism; Z85.3 Personal history of malignant neoplasm of breast
CPT/HCPCS: 81003; 87086; 99213; G0463